=== PATIENT | female | born 1955 | race Caucasian/White ===

== ENCOUNTER → 2020-04-17 07:47 | Outpatient (CLI) | payer BC, SELFPAY ==
--- NOTE | 2020-04-17 08:01 | CT_ITS ---
STUDY: CT CHEST WITHOUT CONTRAST REASON FOR EXAM: Female, 64 years old. ELEVATED TUMOR MARKERS FOR THYROID CANCER. ELEVATED TUMOR MARKERS RADIATION DOSAGE (If Supplied By Facility): CTDIvol = ( 18.41 ) mGy, DLP = ( 792.80 ) mGycm TECHNIQUE: Transaxial imaging was performed without the administration of intravenous contrast material. Individualized dose optimization techniques were used for this CT. COMPARISON: None. FINDINGS: The study is technically limited, being performed without intravenous contrast. The lungs are normal. There is no demonstrated pleural abnormality. The heart size is within normal limits. There is trace pericardial effusion. There appears to be status post thyroidectomy. No mass or adenopathy is identified in the region. Normal hilar regions. Normal unenhanced pulmonary arteries. There are calcified plaques of the thoracic aorta. There are diffuse degenerative changes of the visualized cervicothoracolumbar spine. There is no evidence of osseous metastatic disease. There are numerous low-attenuation subcentimeter foci scattered throughout the liver indeterminate for solid versus cystic process. CT/Chest without Contrast IMPRESSION: 1. Trace pericardial effusion. 2. Status post thyroidectomy. There is no evidence of recurrent mass or adenopathy in the region. 3. Numerous low-attenuation subcentimeter foci scattered throughout the liver indeterminate for solid versus cystic process. Metastatic disease should be considered. 4. If clinically indicated, MRI may be helpful for further evaluation. Electronically Signed: Imer Horn MD at 17:12 EDT , Service support ,
== END ==
PROVIDERS: PCP Family Medicine
DX: C73 Malignant neoplasm of thyroid gland (principal); R97.8 Other abnormal tumor markers
CPT/HCPCS: 71250

== ENCOUNTER → 2020-05-08 10:45 | Outpatient (CLI) | payer BC, SELFPAY ==
--- NOTE | 2020-05-08 11:30 | MRI_ITS ---
HISTORY: Abnormal CT, liver abnormality. History of thyroid CA in [id number] ADDITIONAL HISTORY: Liver lesions on previous chest CT. Right upper quadrant pain for 2 years. COMPARISON: CT chest 04/17/2020 TECHNIQUE: Multiplanar, multisequence MRI of the abdomen without and with IV contrast. FINDINGS: LOWER THORAX: Small amount of pericardial fluid. LIVER: Numerous hepatic lesions are seen in both lobes of the liver measuring up to 1 cm in size. Lesions are T1 hypointense, T2 hyperintense and DWI hyperintense. No definite enhancement. GALLBLADDER: No calculi. BILE DUCTS: No significant biliary dilatation. KIDNEYS/URETERS: Unremarkable. ADRENAL GLANDS: Unremarkable. SPLEEN: Enlarged, 15 cm craniocaudal. PANCREAS: Mild to moderate fatty replacement. GI TRACT: Unremarkable as imaged. LYMPH NODES: No pathologic appearing adenopathy. FREE FLUID: None. SKELETON AND SOFT TISSUES: No acute findings. Degenerative changes. MRI/MRI Abd WITH and W/O Contrast IMPRESSION: Multiple small hepatic lesions compatible with cysts. Mild splenomegaly. at 0005 Reported and signed by: Cassandra Flores MD Electronically Signed: Cassandra Flores MD at 0:05 EDT Tel , Service support ,
[2020-05-09 08:55] LABS: CREATININE FINGERSTICK 0.76 mg/dL (0.55-1.02); EGFR FINGERSTICK > 60 mL/min (>60)
== END ==
PROVIDERS: PCP Family Medicine
DX: R93.89 Abnormal findings on diagnostic imaging of other specified body structures (principal); C73 Malignant neoplasm of thyroid gland
CPT/HCPCS: 74183; A9575; A4216

== ENCOUNTER → 2020-11-01 09:42 | Outpatient (CLI) | payer BC, SELFPAY ==
[2020-11-01 10:32] LABS: Absolute Lymphocyte Count 0.98 X10^3/uL (0.83-4.51); Absolute Neutrophil Count 2.6 X10^3/uL (2.0-7.7); Basophil# 0.03 X10^3/uL; Basophil% 0.8 % (0-1); Eosinophil# 0.08 X10^3/uL; Hemoglobin 13.5 g/dL (12.0-15.0); Lymphocyte # 0.98 X10^3/ul (4.0); Mean Corp Hgb Conc 33.8 g/dL (32-36); Mean Corpuscular Hgb 32.3 pg (27.0-32.0); Mean Corpuscular Volume 95.7 fL (81-99); Mean Platelet Vol. 11.4 fl (6.2-12.0); Monocyte# 0.21 X10^3/uL; Monocyte% 5.4 % (0-10); NRBC Flagged by Analyzer 0 % (0-5); Neutrophil # 2.61 X10^3/uL (2.7-7.7); Neutrophil % 66.5 % (47-70); Platelet Count 125 K/mm3 (150-450); RBC Distribution Width CV 11.4 % (11.6-14.6); RBC Distribution Width SD 39.7 fl (35.1-43.9); Red Blood Count 4.18 M/mm3 (4.2-5.4); White Blood Count 3.9 K/mm3 (4.4-11.0)
--- NOTE | 2020-11-01 10:34 | EKG12_ITS ---
Test Reason : PREOP Blood Pressure : / mmHG Vent. Rate : 063 BPM Atrial Rate : 063 BPM P-R Int : 142 ms QRS Dur : 080 ms QT Int : 412 ms P-R-T Axes : 017 015 028 degrees QTc Int : 421 ms Normal sinus rhythm Normal ECG Confirmed by ADDY BERNAL, NATHALIE ([id number]), editor department GAY ZENDEJAS ([id number]) on 11/05/2020 1:37:21 PM Referred By: [place] Confirmed By:NATHALIE DALY MD
[2020-11-01 10:56] LABS: Anion Gap 3 (5-15); BUN 18 mg/dL (7-18); BUN/Creat Ratio 18.1 RATIO (10-20); Calcium,Total 8.8 mg/dL (8.5-10.1); Chloride 102 mmol/L (98-107); EST Glomerular Filtration Rate 59 mL/min (>60); Est Glom Filt Rate - Afr Amer 72 mL/min (>60); Glucose 268 mg/dL (74-106); Sodium Level 138 mmol/L (136-145)
[2020-11-01 11:05] LABS: Hemoglobin A1c 8.8 % (3.8-5.6)
== END ==
PROVIDERS: PCP Family Medicine; Referring Provider Physician Assistant; Visit Provider Physician Assistant
DX: Z01.818 Encounter for other preprocedural examination (principal); Z01.810 Encounter for preprocedural cardiovascular examination
CPT/HCPCS: 36415; 80048; 83036; 85025; 93005

== ENCOUNTER 2022-11-03 08:29 | Observation (INO) | payer MEDICARE, SELFPAY ==
[2022-11-03] VITALS (10 sets, daily range): BP systolic 142–156; BP diastolic 61–83; PULSE 57–76; RESP 13–18; TEMP 36.3–36.8; O2SAT 95–99; BMI 33.7; BMI 29.8
--- NOTE | 2022-11-03 09:00 | EKG12_ITS ---
Test Reason : CP Blood Pressure : / mmHG Vent. Rate : 064 BPM Atrial Rate : 064 BPM P-R Int : 144 ms QRS Dur : 076 ms QT Int : 424 ms P-R-T Axes : 055 017 049 degrees QTc Int : 437 ms Normal sinus rhythm Normal ECG When compared with ECG of 01-NOV-2020 10:59, No significant change was found Confirmed by NOAM BERNAL, DK ([id number]), magazine editor CORIN DURHAM ([id number]) on 11/05/2022 1:12:35 PM Referred By: Pl Confirmed By:DK SANTACRUZ MD
--- NOTE | 2022-11-03 09:02 | ED.VIS.CHEST ---
HPI History of Present Illness Chief Complaint: Chest Pain Informant: patient Narrative Narrative: Patient presents with episodes of chest pain that started occurring on Thursday. They do tend to get better if she lays down and rests. I cannot get her to specifically state that they are worsened by exertion though. She has had several episodes where her heart rate goes fast. She states that it was fast enough that I should have been in the hospital. But she is not sure of the rate. However, she has chest pain when her heart rate is not going fast also. Her first episode of pain was more at the base of the neck on the left. She states she has had pain over here because of nerve problems from her prior thyroid surgery in 2017 and 18. But later episodes of chest pain have been more on the chest that radiate up toward the left shoulder and even down the arm toward the elbow. She has been slightly short of breath with this at times. She had some mild nausea once or twice no diaphoresis. She received aspirin and nitro in the ambulance and is pain-free now. No GI symptoms. No history of GI issues or cardiac issues other than mitral valve prolapse. Patient is on atorvastatin but was told her cholesterol is normal but this drug just helps keep veins open. She is also on meds for high blood pressure and thyroid disease. She has never had a heart catheterization or stents. She had a stress test decades ago. Family history of some strokes and heart disease but not until later in life. She quit smoking in the 70s. [facility] Medical History HTN (hypertension) Hx of thyroid cancer Home Medications atorvastatin 20 mg tablet 20 mg PO DAILY 11/03/22 [History Last Taken Unknown] insulin NPH isoph U-100 human 100 unit/mL (3 mL) subcutaneous pen (Humulin N NPH U-100 Insulin KwikPen) 20 unit subcut QHS 11/03/22 [History Last Taken Unknown] levothyroxine 137 mcg tablet 137 mcg PO DAILY 11/03/22 [History Last Taken Unknown] losartan 50 mg tablet 50 mg PO DAILY 11/03/22 [History Last Taken Unknown] metoprolol tartrate 50 mg tablet 50 mg PO DAILY 11/03/22 [History Last Taken Unknown] Allergy/AdvReac Type Severity Reaction Status Date / Time sulfite Allergy Anaphylaxis Verified 11/03/22 08:34 Social History Smoking Status: Never smoker ROS ROS ED Constitutional Constitutional ED: Denies chills or fever(s) Eyes Eyes: Denies change in vision ENT ENT ED: Denies rhinorrhea or sore throat Cardiovascular Cardiovascular: Reports as per HPI Respiratory/Chest Respiratory/Chest: Reports dyspnea; Denies cough or sputum Gastrointestinal Gastrointestinal: Reports nausea; Denies vomiting Genitourinary Genitourinary ED: Denies dysuria Musculoskeletal Musculoskeletal: Reports neck pain; Denies arthralgias or back pain Integumentary Denies rash Neurologic Neurologic: Reports other Details: One of the episodes had slight tingling on her left arm but she stated that last for just a couple seconds. ; Denies headache(s), paresthesias or weakness Endocrine Endocrinology: Denies polydipsia or polyuria Hematologic/Lymphatic Hematologic/Lymphatic: Denies lymphadenopathy EXAM Physical Exam Const Vital Signs: 11/03/22 08:30 11/03/22 08:37 11/03/22 09:06 Temperature 98.3 F Temperature Source Temporal Pulse Rate 67 Respiratory Rate 13 Respiratory Effort Normal Non-Labored Blood Pressure 152/83 H Blood Pressure Mean 106 Pulse Ox 98 97 Oxygen Delivery Method Room Air 11/03/22 09:49 11/03/22 11:23 11/03/22 11:23 Temperature 97.3 F L Temperature Source Temporal Pulse Rate 62 62 61 Respiratory Rate 16 16 17 Respiratory Effort Blood Pressure 145/61 H 156/67 H 156/67 H Blood Pressure Mean 89 96 96 Pulse Ox 98 99 99 Oxygen Delivery Method Room Air Room Air Room Air Positive well nourished General Appearance ED: NAD HEENT atraumatic Eyes General Eye ED: Negative for scleral icterus Neck supple Neck Narrative: Well-healed scar. Chest Wall inspection of chest normal Resp normal respiratory effort and clear to auscultation bilaterally Resp Narrative: No pain with deep breath. Cardio regular rate, regular rhythm and no murmurs GI normal to inspection, nondistended, normoactive bowel sounds and soft to palpation Back/Spine no CVA tenderness Extremity General Extremety ED: Negative for edema General Extremity: Negative for edema Neuro Sensorium / Orientation: awake and alert Psych mental status grossly normal Skin no rashes or lesions noted Heart Score History: Highly Suspicious ECG: Normal Age: >/= 65 years Risk Factors: 1 or 2 Risk Factors Troponin: </= Normal Limit Score: 5 MDM MDM MDM Narrative Medical decision making narrative: PatientChest x-ray shows no acute process. Just minimal elevation of the hemoglobin. Creatinine is slightly high at 1.03. This might be due to her glucose elevation causing some mild dehydration. It sounds like she takes insulin just in the evening. She states she takes Humulin only. TSH is normal. Troponins normal. My concern is that this patient does have risk factors for heart disease. She has chest pain and it seems to be getting worse on each episode. This morning she added nausea along with the pain and dyspnea. With slowly worsening pain and risk factors she will be brought in for further evaluation. Lab Data Attestation: I reviewed the patient's lab results. Labs: Laboratory Results - last 24 hr 11/03/22 11/03/22 08:15 08:15 WBC 4.4 RBC 4.90 Hgb 15.1 H Hct 42.3 MCV 86.3 MCH 30.8 MCHC 35.7 RDW Std Deviation 39.7 RDW Coeff of Antonoi 12.6 Plt Count 143 L MPV 11.6 Immature Gran % (Auto) 0.500 Neut % (Auto) 65.4 Lymph % (Auto) 26.8 [place] % (Auto) 4.8 Eos % (Auto) 1.6 Baso % (Auto) 0.9 Absolute Neuts (auto) 2.9 Absolute Lymphs (auto) 1.17 Nucleated RBC % 0 Sodium 137 Potassium 3.2 L Chloride 101 Carbon Dioxide 27.0 Anion Gap 9 BUN 17 Creatinine 1.04 H Estim Creat Clear Calc 44.09 Est GFR (MDRD) Af Amer 68 Est GFR (MDRD) Non-Af 56 L BUN/Creatinine Ratio 16.3 Glucose 303 H Calcium 9.0 Troponin I High Sens 7 TSH 1.13 Radiography Diagnostic Testing: Clinical Impression(s) from Imaging Studies Chest X-Ray 11/03/22 09:07 IMPRESSION: Hyperinflation. The lungs are clear. Electronically Signed: Jeff Ramirez MD at 9:29 EST , Chest x-ray looked at by me and read by radiology shows mild hyperinflation. EKG Initial EKG: Comments: EKG done for chest pain read by me shows a normal sinus rhythm with overall rate of 64. No ectopy. No acute ST elevation or depression. VT interval, QRS duration and QTc are normal. Overall the EKG is similar to a prior from 01 November 2020 Discharge Plan Triage Chief Complaint: Chest Pain ED Provider: Armin Whitfield Dx/Rx/DC Orders Clinical Impression: Chest pain, Acute hyperglycemia, Mild dehydration Prescriptions: No Action losartan 50 mg tablet 50 mg PO DAILY levothyroxine 137 mcg tablet 137 mcg PO DAILY atorvastatin 20 mg tablet 20 mg PO DAILY Label Comments: TAKE 1 TABLET BY MOUTH EVERY DAY AT BEDTIME metoprolol tartrate 50 mg tablet 50 mg PO DAILY Humulin N NPH Insulin KwikPen 100 unit/mL (3 mL) insulin pen 20 unit SUBCUT QHS Primary Care Provider: Kenny Mercado Referrals: Kenny Mercado MD [Primary Care Provider] - Disposition Disposition: Acute Care Hospital [facility]
--- NOTE | 2022-11-03 09:07 | RAD_ITS ---
STUDY: X-RAY CHEST REASON FOR EXAM: Female, 67 years old. Chest pain TECHNIQUE: Single AP portable view of the chest. COMPARISON: Comparison is made with prior study 07/23/2017. FINDINGS: EKG electrodes are seen. Hyperinflation. The lungs are clear. There is no demonstrated pleural abnormality. Normal size heart. Normal mediastinum and melissa. Normal visualized pulmonary arteries. There is atherosclerotic calcification of the aortic arch with tortuosity. There are diffuse degenerative changes of the visualized thoracic spine. Normal visualized ribs, clavicles, and shoulders. There is no demonstrated abnormality of the visualized soft tissue structures of the upper abdomen. RAD/Chest 1 View (Portable) IMPRESSION: Hyperinflation. The lungs are clear. Electronically Signed: Jeff Ramirez MD at 9:29 EST ,
[2022-11-03 09:10] LABS: Absolute Lymphocyte Count 1.17 X10^3/uL (0.83-4.51); Absolute Neutrophil Count 2.9 X10^3/uL (2.0-7.7); Basophil# 0.04 X10^3/uL; Basophil% 0.9 % (0-1); Eosinophil# 0.07 X10^3/uL; Eosinophils% 1.6 % (0-5); Hematocrit 42.3 % (37-47); Hemoglobin 15.1 g/dL (12.0-15.0); Lymphocyte # 1.17 X10^3/ul (0.83-4.51); Lymphocyte % 26.8 % (19-41); Mean Corp Hgb Conc 35.7 g/dL (32-36); Mean Corpuscular Hgb 30.8 pg (27.0-32.0); Mean Corpuscular Volume 86.3 fL (81-99); Mean Platelet Vol. 11.6 fl (6.2-12.0); Monocyte# 0.21 X10^3/uL; Monocyte% 4.8 % (0-10); NRBC Flagged by Analyzer 0 % (0-5); Neutrophil # 2.86 X10^3/uL (2.7-7.7); Neutrophil % 65.4 % (47-70); Platelet Count 143 K/mm3 (150-450); RBC Distribution Width CV 12.6 % (11.6-14.6); RBC Distribution Width SD 39.7 fl (35.1-43.9); White Blood Count 4.4 K/mm3 (4.4-11.0)
[2022-11-03 09:45] LABS: Anion Gap 9 (5-15); BUN 17 mg/dL (7-18); BUN/Creat Ratio 16.3 RATIO (10-20); Chloride 101 mmol/L (98-107); Creatinine, Serum 1.04 mg/dL (0.55-1.02); EST Glomerular Filtration Rate 56 mL/min (>60); Est Glom Filt Rate - Afr Amer 68 mL/min (>60); Estimated Creatinine Clearance 44.09 ml/min; Glucose 303 mg/dL (74-106); Potassium 3.2 mmol/L (3.5-5.1); Sodium Level 137 mmol/L (136-145); Thyroid Stim Hormone (TSH) 1.13 uIU/mL (0.358-3.74); Troponin-I HS (w/2H Reflex) 7 pg/mL (3.0-54.0)
[2022-11-03] MEDS: Potassium Chloride Oral Tablet 20 MEQ PO (10:08)
[2022-11-03 11:07] LABS: Reflex Troponin-HS? (from REC) Y
[2022-11-03] MEDS: 0.9% Normal Saline 1,000 ML 100 ML IV ×2 (11:23→22:36)
[2022-11-03 11:47] LABS: Troponin-I HS 8 pg/mL (3.0-54.0)
--- NOTE | 2022-11-03 12:49 | HP.PCM.HOS_ITS ---
HPI - General General Date of Admission: 11/03/22 HPI Narrative HUGO SANDERS, is a 67 F who presents to the hospital with multiple episodes of chest pain/pressure. She is unable to give a great history in terms of whether or not the pain was worse with activity and improved with rest, she does state that the nitroglycerin she was given did help significantly. She does not have a strong family history of heart disease however her history is complicated with hyperlipidemia as well as diabetes and condition. Her initial troponin was 7 and repeat was 8. She been noticing some episodes of tachycardia but she has not noticed that the tachycardia has caused worsening chest pain. She is states she has had a stress test a few years ago but it was unremarkable. She also acknowledges a significant amount of stress in her life with her fianc? currently undergoing a quadruple vessel bypass a few weeks ago and is currently at a intermediate. [facility] Medical History (Updated 11/03/22 @ 11:[address] Armin Whitfield MD) HTN (hypertension) Hx of thyroid cancer Home Medications atorvastatin 20 mg tablet 20 mg PO DAILY 11/03/22 [History Last Taken Unknown] insulin NPH isoph U-100 human 100 unit/mL (3 mL) subcutaneous pen (Humulin N NPH U-100 Insulin KwikPen) 20 unit subcut QHS 11/03/22 [History Last Taken Unknown] levothyroxine 137 mcg tablet 137 mcg PO DAILY 11/03/22 [History Last Taken Unknown] losartan 50 mg tablet 50 mg PO DAILY 11/03/22 [History Last Taken Unknown] metoprolol tartrate 50 mg tablet 50 mg PO DAILY 11/03/22 [History Last Taken Unknown] Allergy/AdvReac Type Severity Reaction Status Date / Time sulfite Allergy Anaphylaxis Verified 11/03/22 08:34 Family History (Updated 11/03/22 @ 12:[address] Vignesh Gates MD) Other CVA (cerebral vascular accident) Heart disease Surgical History (Updated 11/03/22 @ 12:[address] Vignesh Gates MD) History of thyroidectomy Social History Smoking Status: Never smoker ROS Constitutional Constitutional: Denies chills, fatigue, fever(s) or malaise Eyes Eyes: Denies blurry vision ENT HEENT: Denies headache(s) or nasal discharge Cardiovascular Cardiovascular: Reports chest pain and palpitations; Denies dyspnea on exertion or syncope Respiratory/Chest Respiratory/Chest: Denies cough, shortness of breath at rest or shortness of breath with exertion Gastrointestinal Gastrointestinal: Denies constipation, diarrhea, nausea or vomiting Genitourinary Genitourinary: Denies dysuria Neurologic Neurologic: Denies focal weakness, numbness or tremor(s) Psychiatric Psychiatric: Denies anxiety or depression Vital Signs Vital Signs Vital Signs: 11/03/22 08:30 11/03/22 08:37 11/03/22 09:06 Temperature 98.3 F Temperature Source Temporal Pulse Rate 67 Respiratory Rate 13 Respiratory Effort Normal Non-Labored Blood Pressure 152/83 H Blood Pressure Mean 106 Pulse Ox 98 97 Oxygen Delivery Method Room Air 11/03/22 09:49 11/03/22 11:23 11/03/22 11:23 Temperature 97.3 F L Temperature Source Temporal Pulse Rate 62 62 61 Respiratory Rate 16 16 17 Respiratory Effort Blood Pressure 145/61 H 156/67 H 156/67 H Blood Pressure Mean 89 96 96 Pulse Ox 98 99 99 Oxygen Delivery Method Room Air Room Air Room Air Weight Weight: 196 lb 13.965 oz Body Mass Index (BMI) 33.7 Physical Exam Narrative General: Alert, Oriented x3, Cooperative, No apparent distress HEENT: Atraumatic, PERRLA, EOMI, Normocephalic Oral: Moist Mucosa Neck: Supple, No JVD Lungs: Clear to auscultation, Normal air movement, No rhonchi, No wheeze, No rales Cardiovascular: Regular rate, Regular Rhythm, Normal S1, Normal S2, No murmurs Abdomen: Soft, Non Tender, Non-Distended, No Hepato-splenomegaly Extremities: No edema, Capillary Refill Less than 3 Seconds Skin: No rashes, No breakdown Musculoskeletal: No Tenderness to Palpation of Joints or Extremities Neurological: Cranial nerves II-XII grossly intact, Motor Exam 5/5 strength throughout, Sensory exam intact to light touch and pain Psych/Mental Status: Normal Affect, Appropriate Results Lab / Micro Data Result Diagrams: 11/03/22 08:15 11/03/22 08:15 Labs: Laboratory Results - last 24 hr 11/03/22 08:15: WBC 4.4, RBC 4.90, Hgb 15.1 H, Hct 42.3, MCV 86.3, MCH 30.8, MCHC 35.7, RDW Std Deviation 39.7, RDW Coeff of Antonio 12.6, Plt Count 143 L, MPV 11.6, Immature Gran % (Auto) 0.500, Neut % (Auto) 65.4, Lymph % (Auto) 26.8, [place] % (Auto) 4.8, Eos % (Auto) 1.6, Baso % (Auto) 0.9, Absolute Neuts (auto) 2.9, Absolute Lymphs (auto) 1.17, Nucleated RBC % 0 11/03/22 08:15: Sodium 137, Potassium 3.2 L, Chloride 101, Carbon Dioxide 27.0, Anion Gap 9, BUN 17, Creatinine 1.04 H, Estim Creat Clear Calc 44.09, Est GFR (MDRD) Af Amer 68, Est GFR (MDRD) Non-Af 56 L, BUN/Creatinine Ratio 16.3, Glucose 303 H, Calcium 9.0, Troponin I High Sens 7, TSH 1.13 11/03/22 11:20: Troponin I High Sens 8 Radiology Impression Chest X-Ray 11/03/22 09:07 IMPRESSION: Hyperinflation. The lungs are clear. Electronically Signed: Jeff Ramirez MD at 9:29 EST , Assessment & Plan Assessment/Plan (1) Chest pain: PLAN: Plan 1. Chest pain/HTN/HLD ? Troponin so far unremarkable we will obtain a troponin series ? We will obtain a stress test in the morning ? Continue her home pressure medications ? Continue with her home Lipitor 2. DM2 ? She is insulin-dependent we will continue with her nighttime insulin ? We will place her on Accu-Cheks AC at bedtime ? We will make adjustments as necessary 3. 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 Stable, TSH of 1.13 ? Continue with Synthroid DVT: Ambulation Charges/Coding Visit Charges OBSV E&M: 02722 Initial observation care L2
[2022-11-03] MEDS: Insulin Lispro 100 UNIT/ML INSULN.PEN SC ×2 (17:18→21:52)
[2022-11-03 17:40] LABS: Bedside Glucose 226 mg/dL (74-106)
[2022-11-03 18:21] LABS: Troponin-I HS 8 pg/mL (3.0-54.0)
[2022-11-03] MEDS: Insulin NPH Human 100 UNITS/ML PEN 20 UNITS SC (21:51)
[2022-11-03 22:35] LABS: Bedside Glucose 236 mg/dL (74-106)
[2022-11-03] MEDS: Acetaminophen 325 MG Tablet 650 MG PO (22:36)
[2022-11-04] VITALS (8 sets, daily range): BP systolic 113–152; BP diastolic 67–84; PULSE 55–86; RESP 16–18; TEMP 36.4–36.8; O2SAT 96–99
[2022-11-04 05:18] LABS: Absolute Lymphocyte Count 1.33 X10^3/uL (0.83-4.51); Absolute Neutrophil Count 2.6 X10^3/uL (2.0-7.7); Basophil# 0.04 X10^3/uL; Basophil% 0.9 % (0-1); Eosinophil# 0.06 X10^3/uL; Eosinophils% 1.4 % (0-5); Hematocrit 36.3 % (37-47); Hemoglobin 12.2 g/dL (12.0-15.0); Lymphocyte # 1.33 X10^3/ul (0.83-4.51); Lymphocyte % 31.1 % (19-41); Mean Corp Hgb Conc 33.6 g/dL (32-36); Mean Corpuscular Hgb 30.4 pg (27.0-32.0); Mean Corpuscular Volume 90.5 fL (81-99); Mean Platelet Vol. 11.8 fl (6.2-12.0); Monocyte# 0.21 X10^3/uL; Monocyte% 4.9 % (0-10); NRBC Flagged by Analyzer 0 % (0-5); Neutrophil # 2.63 X10^3/uL (2.7-7.7); Neutrophil % 61.5 % (47-70); Platelet Count 114 K/mm3 (150-450); RBC Distribution Width CV 13.1 % (11.6-14.6); RBC Distribution Width SD 42.7 fl (35.1-43.9); Red Blood Count 4.01 M/mm3 (4.2-5.4); White Blood Count 4.3 K/mm3 (4.4-11.0)
[2022-11-04 05:37] LABS: Anion Gap 8 (5-15); BUN 17 mg/dL (7-18); BUN/Creat Ratio 18.7 RATIO (10-20); Calcium,Total 8.1 mg/dL (8.5-10.1); Chloride 104 mmol/L (98-107); Creatinine, Serum 0.91 mg/dL (0.55-1.02); EST Glomerular Filtration Rate 65 mL/min (>60); Est Glom Filt Rate - Afr Amer 79 mL/min (>60); Estimated Creatinine Clearance 50.38 ml/min; Glucose 126 mg/dL (74-106); Potassium 3.3 mmol/L (3.5-5.1); Sodium Level 140 mmol/L (136-145)
--- NOTE | 2022-11-04 05:55 | EKG12_ITS ---
Test Reason : PRE OP Blood Pressure : / mmHG Vent. Rate : 063 BPM Atrial Rate : 063 BPM P-R Int : 144 ms QRS Dur : 078 ms QT Int : 438 ms P-R-T Axes : 053 034 044 degrees QTc Int : 448 ms Normal sinus rhythm Normal ECG Confirmed by ADDY BERNAL, NATHALIE ([id number]), editor map CORIN DURHAM ([id number]) on 11/05/2022 9:07:14 AM Referred By: Confirmed By:NATHAILE DALY MD
[2022-11-04] MEDS: Losartan Potassium 50 MG Tablet PO (06:48)
[2022-11-04] MEDS: Levothyroxine 137 MCG Tablet PO (06:48)
[2022-11-04] MEDS: Potassium Chloride Oral Tablet 20 MEQ 40 MEQ PO (06:51)
[2022-11-04 07:20] LABS: Bedside Glucose 157 mg/dL (74-106)
[2022-11-04] MEDS: 0.9% Saline Lock 10 ML Syringe IV (08:42)
--- NOTE | 2022-11-04 11:33 | STRESSREP ---
Stress Test Report Date: 11-04-2022 Procedure: Pharmacologic stress nuclear imaging study Indications: Chest pain Consent: Per the patient Procedure: The patient underwent pharmacologic (Regadenoson 0.4mg ) evaluation with a peak heart rate of 110 beats per minute (72%predicted maximal heart rate) and a resting blood pressure of 126/75 mmHg and a peak blood pressure of 181/75 mmHg. The baseline ECG demonstrated normal sinus rhythm. The peak pharmacologic ECG demonstrated no obvious ECG changes. There were no cardiac dysrhythmias pretest, during pharmacologic infusion, or recovery. There was no complaint of chest discomfort during pharmacologic infusion or recovery. The examination was discontinued secondary to completion of protocol. Impression: 1. Pharmacologic (Regadenoson) evaluation 2. Peak pharmacologic ECG with no obvious ECG changes. 3. There were no cardiac dysrhythmias pretest, during pharmacologic infusion, or recovery. 4. Nuclear images pending Myocardial perfusion imaging study: Technique: The patient was injected with 11.0 millicuries of technetium 99m Cardiolite and subsequently rest SPECT Cardiolite nuclear imaging was obtained in the horizontal long, vertical long, and short axis views. The patient underwent pharmacologic (Regadenoson) evaluation with a peak heart rate of 110 beats per minute (72% percent predicted maximal heart rate) and a resting blood pressure of 126/75 mmHg and a peak blood pressure of 181/75 mmHg. The patient was injected with 33.4 millicuries of technetium 99m Cardiolite and subsequently stress SPECT Cardiolite nuclear imaging was obtained in the horizontal long, vertical long, and short axis views. A gated Cardiolite study at peak stress was obtained. Interpretation: Rest and stress SPECT Cardiolite nuclear imaging status post realignment, normalization, and attenuation correction demonstrate at rest the appearance of a small area of subtle diminished tracer uptake near the distal anteroseptal segments which status post stress appears to improve/normalize. There is end systolic thickening and brightening. The gated Cardiolite study demonstrates myocardial thickening and inward wall motion. The reported LVEF is 80%. Impression: 1. Rest and stress SPECT current nuclear imaging demonstrate myocardial perfusion changes compatible with shifting soft tissue attenuation/artifact with no myocardial perfusion changes considered diagnostic for associated stress-induced myocardial ischemia. 2. The gated Cardiolite study reports an LVEF of 80%. This note was generated with [employer] software. It may contain incorrect words, spelling, and punctuation that were not noted in checking the note before signing.
[2022-11-04] MEDS: Insulin Lispro 100 UNIT/ML INSULN.PEN SC (11:45)
--- NOTE | 2022-11-04 11:45 | CASEMGMT ---
This RN CM to room with HATHAWAY form, explanation done-pt voices understanding, and signs HATHAWAY form. Original to chart and copy to pt. Pt voices no further questions/concerns/needs for discharge. SStaten RN CM
--- NOTE | 2022-11-04 11:58 | DCINST_ITS ---
Discharge Instructions Diet Discharge Diet: Low fat / Low cholesterol Activity Discharge Activity: Return to Normal Activity Dressing / Incision Call your doctor if you observe: Fever of 101 or Higher, Shortness of breath, Dizziness, Fainting spells, Swelling in the ankles, Chest pain and Increased palpitations (irregular heartbeat) Follow Up Care Test Results: Test results from this visit will be discussed in further detail at your follow- up appointment, if applicable. Discharge Plan Admission Admit Date/Time: 11/03/22 11:11 Attending Provider: Vignesh Gates Primary Care Provider: Kenny Mercado Discharge Orders/Prescriptions Prescriptions: Continued losartan 50 mg tablet 50 mg PO DAILY levothyroxine 137 mcg tablet 137 mcg PO DAILY Rx Instructions: 1/2 tab on sundays atorvastatin 20 mg tablet 20 mg PO DAILY Label Comments: TAKE 1 TABLET BY MOUTH EVERY DAY AT BEDTIME metoprolol tartrate 50 mg tablet 50 mg PO BID Humulin N NPH Insulin KwikPen 100 unit/mL (3 mL) insulin pen 20 unit SUBCUT DINNER Referrals / Follow Up: Kenny Mercado MD [Primary Care Provider] - Within 1 Week Disposition Disposition (needs filled in before D/C Order can be placed): Home, Self Care
[2022-11-04 12:11] LABS: Bedside Glucose 300 mg/dL (74-106)
--- NOTE | 2022-11-04 12:14 | DS.PCM_ITS ---
Providers Date of Admission: 11/03/22 Primary Care Physician: Dr. Kenny Mercado MD Reason For Visit: chest pain Diagnosis Discharge Diagnosis (1) Chest pain: Status: Acute Code(s): R07.9 - Chest pain, unspecified Plan 1. Chest pain/HTN/HLD ? Troponin so far unremarkable we will obtain a troponin series ? We will obtain a stress test in the morning ? Continue her home pressure medications ? Continue with her home Lipitor 2. DM2 ? She is insulin-dependent we will continue with her nighttime insulin ? We will place her on Accu-Cheks AC at bedtime ? We will make adjustments as necessary 3. 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 Stable, TSH of 1.13 ? Continue with Synthroid DVT: Ambulation Medications at Discharge Home Medications atorvastatin 20 mg tablet 20 mg PO DAILY high cholesterol 11/03/22 insulin NPH isoph U-100 human 100 unit/mL (3 mL) subcutaneous pen (Humulin N NPH U-100 Insulin KwikPen) 20 unit subcut DINNER diabetes 11/03/22 levothyroxine 137 mcg tablet 137 mcg PO DAILY hypothyroidism 11/03/22 losartan 50 mg tablet 50 mg PO DAILY blood pressure 11/03/22 metoprolol tartrate 50 mg tablet 50 mg PO BID blood pressure 11/03/22 Hospital Course Operations None Procedures Stress test Summary of Care Provided Minutes Spent on Discharge: 38 Hospital Course: Per HPI: HUGO SANDERS, is a 67 F who presents to the hospital with multiple episodes of chest pain/pressure.? She is unable to give a great history in terms of whether or not the pain was worse with activity and improved with rest, she does state that the nitroglycerin she was given did help significantly.? She does not have a strong family history of heart disease however her history is complicated with hyperlipidemia as well as diabetes and condition.? Her initial troponin was 7 and repeat was 8.? She been noticing some episodes of tachycardia but she has not noticed that the tachycardia has caused worsening chest pain.? She is states she has had a stress test a few years ago but it was unremarkable.? She also acknowledges a significant amount of stress in her life with her fianc? currently undergoing a quadruple vessel bypass a few weeks ago and is currently at a intermediate. Hospital Course: 1. Chest pain/HTN/HLD?67-year-old female presented to the hospital with multiple episodes of chest pressure as well as neck and left arm pain. Troponins were unremarkable and EKG was normal however she does have a day mild cardiac family history and given the fact that she is a diabetic and could be having an atypical presentation she was brought in to the hospital. She had a stress test today which was negative. She has been acknowledging some point tenderness over her chest which is reproducible on palpation consistent with musculoskeletal source. Given the fact that her vital signs are stable she is not hypoxic and she feels much better today, I discussed with her the plan for discharge today and she expressed understanding of the risk benefits of going home and would like to go home today. I do recommend she follow-up with her PCP in 3 to 5 days. 2. Hypothyroidism secondary to thyroidectomy for cancer, DM2 are all chronic medical conditions which complicate her care. Her home medications were continued where appropriate Physical Exam Narrative General: Alert, Oriented x3, Cooperative, No apparent distress HEENT: Atraumatic, PERRLA, EOMI, Normocephalic Oral: Moist Mucosa Neck: Supple, No JVD Lungs: Clear to auscultation, Normal air movement, No rhonchi, No wheeze, No rales Cardiovascular: Regular rate, Regular Rhythm, Normal S1, Normal S2, No murmurs Abdomen: Soft, Non Tender, Non-Distended, No Hepato-splenomegaly Extremities: No edema, Capillary Refill Less than 3 Seconds Skin: No rashes, No breakdown Musculoskeletal: No Tenderness to Palpation of Joints or Extremities Neurological: Cranial nerves II-XII grossly intact, Motor Exam 5/5 strength throughout, Sensory exam intact to light touch and pain Psych/Mental Status: Normal Affect, Appropriate Weight / BMI Weight Weight: 173 lb 15.115 oz Body Mass Index (BMI) 29.8 ABG / Lab / Microbiology Data Result Diagrams: 11/04/22 04:31 11/04/22 04:31 Laboratory: Laboratory Results - last 24 hr 11/03/22 16:52: Troponin I High Sens 8 11/03/22 17:14: POC Glucose 226 H 11/03/22 21:48: POC Glucose 236 H 11/04/22 04:31: WBC 4.3 L, RBC 4.01 L, Hgb 12.2, Hct 36.3 L, MCV 90.5, MCH 30.4, MCHC 33.6 D, RDW Std Deviation 42.7, RDW Coeff of Antonio 13.1, Plt Count 114 L, MPV 11.8, Immature Gran % (Auto) 0.200, Neut % (Auto) 61.5, Lymph % (Auto) 31.1, [place] % (Auto) 4.9, Eos % (Auto) 1.4, Baso % (Auto) 0.9, Absolute Neuts (auto) 2. 6, Absolute Lymphs (auto) 1.33, Nucleated RBC % 0 11/04/22 04:31: Sodium 140, Potassium 3.3 L, Chloride 104, Carbon Dioxide 28.0, Anion Gap 8, BUN 17, Creatinine 0.91, Estim Creat Clear Calc 50.38, Est GFR (MDRD) Af Amer 79, Est GFR (MDRD) Non-Af 65, BUN/Creatinine Ratio 18.7, Glucose 126 H, Calcium 8.1 L 11/04/22 06:46: POC Glucose 157 H 11/04/22 11:43: POC Glucose 300 H D/C Instructions Discharge Diet: Low fat / Low cholesterol Call your doctor if you observe: Fever of 101 or Higher, Shortness of breath, Dizziness, Fainting spells, Swelling in the ankles, Chest pain and Increased palpitations (irregular heartbeat) Meaningful Use Info Meaningful Use Diagnoses (Choose all that apply): None applicable Discharge Plan Admission Admit Date/Time: 11/03/22 11:11 Attending Provider: Vignesh Gates Primary Care Provider: Kenny Mercado Discharge Orders/Prescriptions Prescriptions: Continued losartan 50 mg tablet 50 mg PO DAILY levothyroxine 137 mcg tablet 137 mcg PO DAILY Rx Instructions: 1/2 tab on sundays atorvastatin 20 mg tablet 20 mg PO DAILY Label Comments: TAKE 1 TABLET BY MOUTH EVERY DAY AT BEDTIME metoprolol tartrate 50 mg tablet 50 mg PO BID Humulin N NPH Insulin KwikPen 100 unit/mL (3 mL) insulin pen 20 unit SUBCUT DINNER Referrals / Follow Up: Kenny Mercado MD [Primary Care Provider] - Within 1 Week Disposition Disposition (needs filled in before D/C Order can be placed): Home, Self Care Charges/Coding Visit Charges OBSV E&M: 53826 Observation care discharge
--- NOTE | 2022-11-04 12:17 | PHA.DC.MR ---
Pharmacy Service has performed discharge medication reconciliation for this patient. The patient's discharge medication list was reviewed for discrepancies and discrepancies were resolved. Home Medications atorvastatin 20 mg tablet 20 mg PO DAILY high cholesterol 11/03/22 insulin NPH isoph U-100 human 100 unit/mL (3 mL) subcutaneous pen (Humulin N NPH U-100 Insulin KwikPen) 20 unit subcut DINNER diabetes 11/03/22 levothyroxine 137 mcg tablet 137 mcg PO DAILY hypothyroidism 11/03/22 losartan 50 mg tablet 50 mg PO DAILY blood pressure 11/03/22 metoprolol tartrate 50 mg tablet 50 mg PO BID blood pressure 11/03/22
[2022-11-04] MEDS: Metoprolol Tartrate 50 MG Tablet PO (13:23)
[2022-11-04] MEDS: FLU VACC QS2022-23(6MOS UP)/PF 60 MCG/0.5 ML SYRINGE IM (13:31)
== END 2022-11-04 16:40 | disposition home or self-care (01) ==
LOC: ED 11:31 → PCU 11:34
PROVIDERS: Admitting Provider Family Medicine; Emergency Provider Emergency Medicine; PCP Family Medicine; Visit Provider Family Medicine
DX: R07.89 Other chest pain (principal); E11.65 Type 2 diabetes mellitus with hyperglycemia; Z79.4 Long term (current) use of insulin; R06.02 Shortness of breath; M54.2 Cervicalgia; I10 Essential (primary) hypertension; M79.602 Pain in left arm; E89.0 Postprocedural hypothyroidism; E86.0 Dehydration; E78.5 Hyperlipidemia, unspecified; Z87.891 Personal history of nicotine dependence; Z79.899 Other long term (current) drug therapy; Z79.890 Hormone replacement therapy; Z23 Encounter for immunization
CPT/HCPCS: 36415; 71045; 78452; 80048; 82962; 84443; 84484; 85025; 93005; 93017; 96360; 96361; 97802; 99218; 99285; A9500; G0008; J7030; 90686; A4216; G0378; J2785

== ENCOUNTER 2023-12-30 15:52 | Observation (INO) | payer MEDICARE, SELFPAY ==
[2023-12-30] VITALS (9 sets, daily range): BP systolic 148–156; BP diastolic 70–85; PULSE 85–130; RESP 14–18; TEMP 36.6; O2SAT 92–98; BMI 37.6; BMI 35.0
--- NOTE | 2023-12-30 16:14 | EX.ED.DYSGE1 ---
HPI History of Present Illness Chief Complaint: Palpitations Informant: patient Narrative Narrative: Sent over from outpatient surgery center for atrial fibrillation. Elective right rotator cuff surgery by Dr. Turner today. Surgery was completed. Status post 10 mg IV Lopressor and IV Cardizem. Patient feels mild irregular heart rate. Denies history of dysrhythmia. Hypertension diabetes history. Denies stroke history. Denies heart failure. She is on metoprolol tartrate 50 mg twice daily she took her medicine this morning at 530. Denies chest pains denies cough. Stress test in 2021 due to palpitations and elevated blood glucose. No history of heart cath. Prior similar symptoms: No PFSH PFSH Medical History HTN (hypertension) Hx of thyroid cancer Home Medications atorvastatin 20 mg tablet 20 mg PO QHS high cholesterol 11/03/22 [History Last Taken Unknown] insulin NPH isoph U-100 human 100 unit/mL (3 mL) subcutaneous pen (Humulin N NPH U-100 Insulin KwikPen) 20 unit subcut DINNER diabetes 11/03/22 [History Last Taken 12/29/23] levothyroxine 137 mcg tablet 68.5 mcg PO SOLIS THYROID 11/03/22 [History Last Taken 12/27/23] losartan 50 mg tablet 50 mg PO DAILY blood pressure 11/03/22 [History Last Taken 12/30/23] metoprolol tartrate 50 mg tablet 50 mg PO BID blood pressure 11/03/22 [History Last Taken 12/30/23] cetirizine 10 mg capsule (All Day Allergy (cetirizine)) 10 mg PO DAILY PRN allergies 12/30/23 [History Last Taken 12/26/23] glucosamine-chondroitin 500 mg-400 mg tablet 1 tab PO DAILY supplement 12/30/23 [History Last Taken 12/16/23] glyburide 5 mg tablet 5 mg PO DAILY 12/30/23 [History Last Taken 12/29/23] hydrochlorothiazide 25 mg tablet 25 mg PO DAILY BLOOD PRESSURE 12/30/23 [History Last Taken 12/29/23] levothyroxine 137 mcg capsule 137 mcg PO MOTUWETHFRSA THYROID 12/30/23 [History Last Taken 12/30/23] multivitamin (Daily Multi-Vitamin tablet) 1 tab PO DAILY supplement 12/30/23 [History Last Taken 12/16/23] oxycodone 5 mg tablet 5 - 10 mg PO Q6H PRN rotator cuff surgery pain 12/30/23 [History Last Taken Unknown] Allergy/AdvReac Type Severity Reaction Status Date / Time sulfite Allergy Anaphylaxis Verified 11/03/22 08:34 Family History (Updated 11/03/22 @ 12:[address] Vignesh Gates MD) Other CVA (cerebral vascular accident) Heart disease Surgical History (Updated 12/30/23 @ 23:[address] Benjie Mccollum DO) History of thyroidectomy Social History Smoking Status: Never smoker ROS ROS ED Constitutional Constitutional ED: Denies chills, fever(s) or sweats Eyes Eyes: Denies change in vision ENT ENT ED: Denies dysphagia or sore throat Cardiovascular Cardiovascular: Reports palpitations; Denies chest pain, leg edema or racing heartbeat Respiratory/Chest Respiratory/Chest: Denies cough, dyspnea or dyspnea on exertion Gastrointestinal Gastrointestinal: Denies abdominal pain, diarrhea, nausea or vomiting Genitourinary Genitourinary ED: Denies dysuria, hematuria or urinary frequency Musculoskeletal Musculoskeletal: Denies back pain, extremity pain or neck pain Integumentary Denies rash or wounds Neurologic Neurologic: Denies headache(s), paresthesias or weakness EXAM Physical Exam Const Vital Signs: 12/30/23 15:53 12/30/23 17:40 12/30/23 17:49 Temperature 97.9 F Temperature Source Oral Pulse Rate 109 H 130 H 125 H Respiratory Rate 16 16 Blood Pressure 152/74 H 148/70 H Blood Pressure Mean 100 96 Pulse Ox 93 93 Oxygen Delivery Method Room Air Room Air 12/30/23 18:18 12/30/23 19:00 Temperature Temperature Source Pulse Rate 90 93 Respiratory Rate 14 Blood Pressure Blood Pressure Mean Pulse Ox 95 Oxygen Delivery Method Positive well nourished and well developed General Appearance ED: well developed and NAD HEENT Reports moist mucous membranes normocephalic and atraumatic Eyes PERRL, EOMs intact bilaterally and conjunctivae normal General Eye ED: Yes normal appearance of both eyes Neck no lymphadenopathy and supple General: Negative for tenderness Chest Wall Chest: Negative for tenderness Resp normal respiratory effort and normal air movement Effort and Inspection: symmetric chest movement; Negative for respiratory distress Cardio regular rhythm and no murmurs Rhythm: abnormal rhythm Peripheral Pulses: pulses 2+ throughout GI normal to inspection, nondistended, normoactive bowel sounds and non-tender Palpation: Negative for guarding or rebound tenderness present Back/Spine no CVA tenderness and no thoracic nor lumbar tenderness Extremity normal to inspection Extremity Narrative: Right upper extremity shoulder sling, dressing to the right shoulder. General Extremety ED: Negative for edema or tenderness General Extremity: Negative for edema Neuro oriented x3 and no sensory deficits noted Sensorium / Orientation: awake and alert Skin no rashes or lesions noted and no wounds MDM MDM MDM Narrative Medical decision making narrative: Interventions / MDM: Differential diagnosis: Atrial fibrillation Diagnosis considered but do not suspect: No clinical dyspnea for concerns for PE My EKG interpretation: A-fib 107, no ST or T wave changes. Imaging independently reviewed and interpreted by myself: N/A External documents reviewed: N/A Test considered but not ordered:N/A ED course: Presents A-fib heart rate 107. Blood pressure stable. Labs ordered including thyroid magnesium. She is due for her evening dose of metoprolol 50 mg this was ordered. 1615: I did speak with cardiology Dr. Solis, new A-fib [id number] score is a 4. Rate is currently controlled. Discussed the rate controlled symptomatically stable can follow-up as an outpatient, will discuss with her surgeon to jose Delc[facility]. Discussed with her surgeon Dr. Turner cleared for Farhana. Labs returned stable slight hypokalemia 3.2 oral replacement was given. Farhana ordered. Preparation and possible discharge reevaluation room heart rate going to 120s to 130s. She was ambulated heart rate 140s with lightheaded symptoms. Ordered for IV Cardizem 15 mg. Heart rate much more improved. Patient now requiring additional IV doses of rate controlled medications, therefore will likely need more medications to help with stabilization. I discussed with hospitalist Dr. Curry for admission to PCU. Re-evaluation: stable Disposition discussed with patient/family/significant other: Patient Case discussed with consulting clinician: Cardiology, hospitalist This note was generated with [employer] dictation software. It may contain incorrect words, spelling, and punctuation that were not noted in checking the note before signing. Lab Data Attestation: I reviewed the patient's lab results. Labs: Laboratory Results - last 24 hr 12/30/23 16:14 WBC 4.6 RBC 3.90 L Hgb 11.7 L Hct 35.8 L MCV 91.8 MCH 30.0 MCHC 32.7 RDW Std Deviation 40.4 RDW Coeff of Antonio 12.1 Plt Count 74 L MPV 11.7 Immature Gran % (Auto) 0.700 Neut % (Auto) 91.8 H Lymph % (Auto) 6.6 L [place] % (Auto) 0.7 Eos % (Auto) 0.0 Baso % (Auto) 0.2 Absolute Neuts (auto) 4.2 Absolute Lymphs (auto) 0.30 L Nucleated RBC % 0 Differential Comment SCANNED Sodium 134 L Potassium 3.2 L Chloride 108 H Carbon Dioxide 20.0 L Anion Gap 6 BUN 23 H Creatinine 0.86 Estim Creat Clear Calc 69.74 Est GFR (MDRD) Af Amer 84 Est GFR (MDRD) Non-Af 70 BUN/Creatinine Ratio 26.8 H Glucose 219 H Calcium 7.3 L Magnesium 2.0 TSH 1.54 Discharge Plan Dx/Rx/DC Orders Clinical Impression: Status post rotator cuff surgery, Atrial fibrillation with RVR, Acute hypokalemia Disposition Disposition: [facility] Discharge Date/Time: 12/30/23 22:31
[2023-12-30 16:32] LABS: Absolute Neutrophil Count 4.2 X10^3/uL (2.0-7.7); Basophil# 0.01 X10^3/uL; Basophil% 0.2 % (0-1); Hematocrit 35.8 % (37-47); Hemoglobin 11.7 g/dL (12.0-15.0); Lymphocyte % 6.6 % (19-41); Mean Corp Hgb Conc 32.7 g/dL (32-36); Mean Corpuscular Volume 91.8 fL (81-99); Mean Platelet Vol. 11.7 fl (6.2-12.0); Monocyte# 0.03 X10^3/uL; Monocyte% 0.7 % (0-10); NRBC Flagged by Analyzer 0 % (0-5); Neutrophil % 91.8 % (47-70); POSITIVE COUNT YES; POSITIVE DIFFERENTIAL YES; Platelet Count 74 K/mm3 (150-450); RBC Distribution Width CV 12.1 % (11.6-14.6); RBC Distribution Width SD 40.4 fl (35.1-43.9); White Blood Count 4.6 K/mm3 (4.4-11.0)
[2023-12-30 16:36] LABS: Differential Indicated SCAN CRITERIA MET
[2023-12-30] MEDS: Metoprolol Tartrate 25 MG Tablet 50 MG PO (16:38)
[2023-12-30 16:44] LABS: Differential Comment SCANNED
[2023-12-30 16:56] LABS: Anion Gap 6 (5-15); BUN 23 mg/dL (7-18); BUN/Creat Ratio 26.8 RATIO (10-20); Calcium,Total 7.3 mg/dL (8.5-10.1); Chloride 108 mmol/L (98-107); Creatinine, Serum 0.86 mg/dL (0.55-1.02); EST Glomerular Filtration Rate 70 mL/min (>60); Est Glom Filt Rate - Afr Amer 84 mL/min (>60); Estimated Creatinine Clearance 69.74 ml/min; Glucose 219 mg/dL (74-106); Potassium 3.2 mmol/L (3.5-5.1); Sodium Level 134 mmol/L (136-145); Thyroid Stim Hormone (TSH) 1.54 uIU/mL (0.358-3.74)
--- OUTSIDE RECORDS SUMMARY | 2023-12-30 17:02 | XMS RPT_ITS | CCD ---
Author Name Unknown Address [address] [place] [address] Organization [facility] Care Team Providers Care Burrer Operator Name Role Phone Osmar Walker Unavailable Unavailable Osmar Walker Unavailable Unavailable No Doctor Assigned, Nodr Unavailable Unavail able Osmar Walker Unavailable Unavailable Osmar Walker Unavailable Unavailable No Doctor Assigned, Nodr Unavailable Unavail able Keith Roy Unavailable Unavailable Kirk Mercado MD Primary Care Provider Osmar Walker MD Unavailable Chuck Suarez MD Unavailable KIRK MERCADO Primary Care Unavailable KIRK MERCADO Referring Unavailable ARMOND MOSQUERA Attending Unavailable KIRK MERCADO Primary Care Unavailable KIRK MERCADO Referring Unavailable ARMOND MOSQUERA Attending Unavailable KIRK MERCADO Referring Unavailable ARMOND MOSQUERA Attending Unavailable KIRK MERCADO Primary Care Unavailable Kirk Mercado MD Primary Care Provider Osmar Walker MD Unavailable Chuck Suarez MD Unavailable Unavailable Kirk Mercado MD Unavailable Dr. Jaycob Spencer Unavailable [phone] [facility], . Unavailable Dr. Bryn Solano MD Unavailable [facility] Unavailable [phone] [facility], . Ml office Unavailable [facility] Unavailable Dr. Chuck Suarez MD Unavailable Amie BOOTH, Yarelis Unavailable Unavailable Sasha MUSIC SOUND LIGHT TECHNICIAN, Brenda Unavailable Faulkner PA-C, Nora J Unavailable Peter MUSIC SOUND LIGHT TECHNICIAN, Anna E Unavailable Unavailable Cameron HARDIN, Marjorie Unavailable Unavailable Hudson MUSIC SOUND LIGHT TECHNICIAN, Margo Unavailable Unavailable Joseph BERNAL, Morteza Fernandez Unavailable Pelon LIVE-C, Luke E Unavailable Pelon RN, Talita Moody Unavailable Unavail able Umberto MUSIC SOUND LIGHT TECHNICIAN, Milady Unavailable Unavailable Nely BOOTH, Nadja Fernandez Unavailable Unavaila ble Mutersbaugh MUSIC SOUND LIGHT TECHNICIAN, Shraddha K Unavailable Unavai labanu Washington PA-C, Maria M J Unavailable Christine PIGMENT SUPPLIER, Esther Unavailable Unavailable Valentina MUSIC SOUND LIGHT TECHNICIAN, Lore M Unavailable Unavailab anu Bailey LPN, Joanne Aguilar Unavailable Unavailab anu Sanchez MD, Imtiaz Fernandez Unavailable Jennifer Cole Unavailable Unavailable Lacey MUSIC SOUND LIGHT TECHNICIAN, Mary Unavailable Unavailabl e Unavailable Unavailable ED MOSQUERA MD Primary Care Unavailable ED MOSQUERA MD Attending Unavailable ED MOSQUERA MD Admitting Unavailable BROWN, KIRK Consulting Unavailable PROVIDER, UNKNOWN Consulting Unavailable PROVIDER, UNKNOWN Consulting Unavailable PROVIDER, UNKNOWN Consulting Unavailable SUMMER MITTAL PAC Primary Care Unavailable SUMMER MITTAL PAC Attending Unavailable SUMMER MITTAL PAC Admitting Unavailable BROWN, KIRK Consulting Unavailable PROVIDER, UNKNOWN Consulting Unavailable PROVIDER, UNKNOWN Consulting Unavailable PROVIDER, UNKNOWN Consulting Unavailable PELON, LUKE E Primary Care Unavailable PELON, LUKE E Attending Unavailable BROWN, KIRK Consulting Unavailable PELON, LUKE E Admitting Unavailable PROVIDER, UNKNOWN Consulting Unavailable PROVIDER, UNKNOWN Consulting Unavailable PROVIDER, UNKNOWN Consulting Unavailable BROWN, KIRK Consulting Unavailable BROWN, KIRK Attending Unavailable BROWN, KIRK Primary Care Unavailable BROWN, KIRK Admitting Unavailable PROVIDER, UNKNOWN Consulting Unavailable PROVIDER, UNKNOWN Consulting Unavailable PROVIDER, UNKNOWN Consulting Unavailable PELON, LUKE E Primary Care Unavailable PELON, LUKE E Admitting Unavailable BROWN, KIRK Consulting Unavailable PELON, LUKE E Attending Unavailable PROVIDER, UNKNOWN Consulting Unavailable PROVIDER, UNKNOWN Consulting Unavailable PROVIDER, UNKNOWN Consulting Unavailable STAS CHRISTIAN MD Primary Care Unavailable STAS CHRISTIAN MD Attending Unavailable BROWN, KIRK Consulting Unavailable STAS CHRISTIAN MD Admitting Unavailable PROVIDER, UNKNOWN Consulting Unavailable PROVIDER, UNKNOWN Consulting Unavailable PROVIDER, UNKNOWN Consulting Unavailable KIRK MERCADO Primary Care Unavailable KIRK MERCADO Consulting Unavailable KIRK MERCADO Attending Unavailable KIRK MERCADO Admitting Unavailable PROVIDER, UNKNOWN Consulting Unavailable PROVIDER, UNKNOWN Consulting Unavailable PROVIDER, UNKNOWN Consulting Unavailable SUMMER MITTAL Primary Care Unavailable SUMMER MITTAL Attending Unavailable KIRK MERCADO Consulting Unavailable SUMMER MITTAL PAC Admitting Unavailable PROVIDER, UNKNOWN Consulting Unavailable PROVIDER, UNKNOWN Consulting Unavailable PROVIDER, UNKNOWN Consulting Unavailable Allergies Allergy Classification Reported Allergen(s) Allergy Type Date of Onset Reaction(s) Facility (3 sources) Sulfites; Translations: [SULFITES] Propensity to adverse reactions to drug 8 Swelling [facility] (2 sources) Sulfonamides (Antibiotic) Propensity to adverse reactions to drug 7 Shortness of Breath [facility] (6 sources) Lisinopril Drug Allergy [employer]; [employer] (6 sources) Penicillin V Drug Allergy [employer]; [employer] (1 source) [employer]; [employer] (1 source) [employer]; [employer] (1 source) [employer]; [employer] (1 source) [employer]; [employer] (1 source) [employer]; [employer] (1 source) [employer]; [employer] Medications Current Medications Medication Drug Class(es) Dates Sig (Normalized) Sig (Original) acetaminophen 500 mg oral tablet (2 sources) take 1 tablet by mouth twice daily acetaminophen (TYLENOL) 500 MG tablet Take 1 tablet by mouth 2 times daily. 0 Active ascorbic acid 1000 mg oral tablet (2 sources) Vitamin C take 1 tablet by mouth once daily Ascorbic Acid (Vitamin C) 1000 MG tablet Take 1 tablet by mouth daily. 0 Active atorvastatin 20 mg oral tablet (6 sources) HMG-CoA Reductase Inhibitor Start: 10-20-2023 Centrum Silver Women (6 sources) cholecalciferol 0.025 mg oral capsule (14 sources) Vitamin D Completed/Discontinued Medications Medication Drug Class(es) Dates Sig (Normalized) Sig (Original) acetaminophen 325 mg / HYDROcodone bitartrate 5 mg oral tablet (18 sources) Opioid Agonist Start: 02-05-2016 End: 02-25-2017 Problems Active Problems Problem Classification Problem Date Documented Da te Episodic/Chronic Abdominal pain (12 sources) Abdominal pain, right upper quadrant 03-19-2022 Episodic Administrative/social admission (20 sources) Repeated prescription; Translations: [Encounter for issue of repeat prescription] 03-19-2022 Episodic Anxiety disorders (20 sources) Anxiety disorder; Translations: [Anxiety disorder, unspecified] 11-16-2023 Chronic Cancer of thyroid (20 sources) Malignant tumor of thyroid gland; Translations: [Malignant neoplasm of thyroid gland] Onset: 8 Resolved: 8 Chronic Cancer of thyroid (12 sources) History of malignant neoplasm of thyroid; Translations: [Personal history of malignant neoplasm of thyroid] 11-16-2023 Episodic Chronic kidney disease (20 sources) Chronic kidney disease stage 2; Translations: [Chronic kidney disease, stage 2 (mild)] 11-16-2023 Chronic Coagulation and hemorrhagic disorders (6 sources) Thrombocytopenic disorder; Translations: [Thrombocytopenia, unspecified] 02-12-2018 Chronic Complications of surgical procedures or medical care (2 sources) Postoperative hypothyroidism; Translations: [Postprocedural hypothyroidism] Chronic Diabetes mellitus with complications (20 sources) Type 2 diabetes mellitus; Translations: [Type 2 diabetes mellitus with diabetic chronic kidney disease] 11-16-2023 Chronic Diabetes mellitus without complication (20 sources) Diabetes mellitus; Translations: [Type 2 diabetes mellitus without complications] Onset: 4 11-13-2022 Chronic Disorders of lipid metabolism (1 source) Pure hypercholesterolemia, unspecified; Translations: [Pure hypercholesterolemia, unspecified] Onset: 4 Chronic Diverticulosis and diverticulitis (6 sources) Diverticulitis; Translations: [Diverticulitis of intestine, part unspecified, without perforation or abscess without bleeding] 06-24-2018 Chronic Essential hypertension (20 sources) Benign essential hypertension; Translations: [Essential (primary) hypertension] Onset: 4 11-16-2023 Chronic Genitourinary symptoms and ill-defined conditions (6 sources) Urinary symptoms ; Translations: [Unspecified symptoms and signs involving the genitourinary system] 11-10-2013 Episodic Heart valve disorders (12 sources) Mitral valve disorders 03-19-2022 Chronic Immunizations and screening for infectious disease (20 sources) Encounter for immunization; Translations: [Other specified vaccinations against streptococcus pneumoniae [pneumococcus]] 05-24-2019 Episodic Miscellaneous mental health disorders (6 sources) Feeling of lump in throat; Translations: [Gastrointestinal malfunction arising from mental factors] 07-13-2017 Chronic Nonspecific chest pain (18 sources) Chest pain; Translations: [Chest pain, unspecified] 11-12-2022 Episodic Open wounds of extremities (18 sources) Laceration of tendon of rotator cuff; Translations: [Laceration of muscle(s) and tendon(s) of the rotator cuff of right shoulder, initial encounter] 12-01-2023 Episodic Osteoarthritis (12 sources) Osteoarthrosis, generalized, multiple sites 03-19-2022 Chronic Other aftercare (20 sources) Drug indicated; Translations: [Other [place] [facility] (current) drug therapy] 03-19-2022 Episodic Other aftercare (12 sources) Antibiotic prophylaxis indicated; Translations: [Long-term (current) use of antibiotics] 02-09-2018 Episodic Other aftercare (20 sources) Patient encounter status; Translations: [Encounter for therapeutic drug level monitoring] 02-08-2016 Episodic Other connective tissue disease (12 sources) History of total knee arthroplasty; Translations: [Presence of right artificial knee joint] 11-16-2023 Chronic Other connective tissue disease (20 sources) Pain in right lower limb; Translations: [Pain in right leg] 05-23-2019 Episodic Other connective tissue disease (12 sources) Tendinitis of right rotator cuff; Translations: [Other shoulder lesions, right shoulder] 11-16-2023 Episodic Other female genital disorders (18 sources) Vulval irritation; Translations: [Other specified noninflammatory disorders of vulva and perineum] 11-16-2023 Episodic Other gastrointestinal disorders (12 sources) Splenomegaly; Translations: [Splenomegaly, not elsewhere classified] 05-15-2020 Episodic Other injuries and conditions due to external causes (12 sources) At risk for falls ; Translations: [History of falling] 03-19-2022 Episodic Other injuries and conditions due to external causes (18 sources) Thumb injury ; Translations: [Unspecified injury of unspecified wrist, hand and finger(s), initial encounter] 03-20-2022 Episodic Other lower respiratory disease (20 sources) Cough; Translations: [Cough] 03-19-2022 Episodic Other non-traumatic joint disorders (20 sources) Pain in right shoulder; Translations: [Pain in joint, shoulder region] 11-16-2023 Episodic Other non-traumatic joint disorders (12 sources) Pain in left shoulder; Translations: [Pain in joint, shoulder region] 09-21-2020 Episodic Other nutritional; endocrine; and metabolic disorders (2 sources) Obese class II; Translations: [Obesity, unspecified] Onset: 9 12-14-2018 Chronic Other nutritional; endocrine; and metabolic disorders (20 sources) Body mass index 30+ - obesity; Translations: [Body mass index (BMI) 35.0-35.9, adult] 12-11-2017 Chronic Other screening for suspected conditions (not mental disorders or infectious disease) (20 sources) Breast neoplasm screening status; Translations: [Encounter for other screening for malignant neoplasm of breast] Onset: 4 03-19-2022 Episodic Other skin disorders (12 sources) Folliculitis; Translations: [Follicular disorder, unspecified] 11-16-2023 Episodic Other skin disorders (12 sources) Milia; Translations: [Epidermal cyst] 11-16-2023 Episodic Other skin disorders (6 sources) Swelling, mass, or lump in head and neck 04-07-2012 Episodic Other upper respiratory disease (20 sources) Vocal cord paralysis; Translations: [Paralysis of vocal cords and larynx, unilateral] Onset: 7 09-27-2018 Chronic Other upper respiratory infections (12 sources) Upper respiratory infection; Translations: [Acute upper respiratory infection, unspecified] 03-19-2022 Episodic Residual codes; unclassified (12 sources) Influenza vaccination declined; Translations: [Immunization not carried out because of patient refusal] 03-19-2022 Episodic Spondylosis; intervertebral disc disorders; other back problems (20 sources) Lumbar disc prolapse with radiculopathy; Translations: [Intervertebral disc disorders with radiculopathy, lumbar region] 06-18-2021 Episodic Thyroid disorders (20 sources) Multinodular goiter; Translations: [Nontoxic multinodular goiter] Onset: 7 10-21-2017 Chronic Unclassified (6 sources) 12-24-2022 Unclassified (6 sources) 12-24-2022 Unclassified (6 sources) 12-24-2022 Viral infection (12 sources) Herpes zoster; Translations: [Zoster without complications] 11-16-2023 Episodic Past or Other Problems Problem Classification Problem Date Documented Da te Episodic/Chronic Mood disorders (2 sources) Mood disorders Onset: 06-12-2022 Resolved: 06-17-2023 06-12-2022 Other upper respiratory disease (2 sources) Dysphonia; Translations: [Dysphonia] Onset: 09-27-2018 09-27-2018 Episodic Results Test Name Value Interpretation Reference Range Facil ity Vital Signs Date Time Vital Sign Value Performing Clinician Faci lity 11-16-2023 15:40-0500 Body height 163.83 cm Joanne Bailey LPN [facility], [facility] [employer] 11-16-2023 15:40-0500 Body mass index (BMI) [Ratio] 34.64 kg/m2 MelizaLauren Bailey MUSIC SOUND LIGHT TECHNICIAN [facility], [facility] [employer] 11-16-2023 15:40-0500 Body surface area Derived from formula 1.99 m2 [facility] Leo MUSIC SOUND LIGHT TECHNICIAN [employer] [facility], [facility] [employer] 11-16-2023 15:40-0500 Body weight 92.99 kg Joanne Bailey MUSIC SOUND LIGHT TECHNICIAN [employer] [facility], [facility] [employer] 11-16-2023 15:40-0500 Diastolic blood pressure 75 mm[Hg] MelizaLauren Bailey MUSIC SOUND LIGHT TECHNICIAN [place] [employer] [facility], [facility] [employer] 11-16-2023 15:40-0500 Heart rate 72 /min [facility] Leo MUSIC SOUND LIGHT TECHNICIAN [employer] [facility], [facility] [employer] 11-16-2023 15:40-0500 Systolic blood pressure 131 mm[Hg] MelizaLauren Bailey MUSIC SOUND LIGHT TECHNICIAN [place] [employer] [facility], [facility] [employer] 10-23-2023 09:28-0500 Body height 163.83 cm Marjorie Barnes MA [employer] [facility], [employer] 10-23-2023 09:28-0500 Body mass index (BMI) [Ratio] 34.64 kg/m2 Marjorie Barnes MA [facility], [facility] [employer] 10-23-2023 09:28-0500 Body surface area Derived from formula 1.99 m2 Marjorie Cameron HARDIN [facility], [facility] [employer] 10-23-2023 09:28-0500 Body weight 92.99 kg Marjorie Cameron HARDIN [place] [employer] [facility], [facility] [employer] 10-23-2023 09:28-0500 Diastolic blood pressure 81 mm[Hg] Marjorie Barnes MA [facility] [employer] 10-23-2023 09:28-0500 Heart rate 71 /min Marjorie Barnes MA [facility] [employer] 10-23-2023 09:28-0500 Systolic blood pressure 150 mm[Hg] Marjorie Barnes MA [facility] [employer] 10-20-2023 09:14-0500 Body height 163.83 cm MelizaLauren Bailey LPN [employer] [facility], [facility] [employer] 10-20-2023 09:14-0500 Body mass index (BMI) [Ratio] 34.31 kg/m2 Joanne Bailey LPN [employer] [facility], [facility] [employer] 10-20-2023 09:14-0500 Body surface area Derived from formula 1.98 m2 Joanne Bailey MUSIC SOUND LIGHT TECHNICIAN [employer] [facility], [facility] [employer] 10-20-2023 09:14-0500 Body weight 92.08 kg Joanne Bailey MUSIC SOUND LIGHT TECHNICIAN [employer] [facility], [facility] [employer] 10-20-2023 09:14-0500 Diastolic blood pressure 80 mm[Hg] Joanne Bailey LPN [employer] [facility], [facility] [employer] 10-20-2023 09:14-0500 Heart rate 56 /min Joanne Bailey LPN [employer], [employer] 10-20-2023 09:14-0500 Systolic blood pressure 124 mm[Hg] Joanne Bailey MUSIC SOUND LIGHT TECHNICIAN [facility] [employer] [facility], [facility] 10-09-2023 11:35-0500 Body height 163.83 cm Lore Choulabach [facility], [facility] [employer], [employer] 10-09-2023 11:35-0500 Body mass index (BMI) [Ratio] 34.31 kg/m2 Lore Perez Valentina [facility], [facility] [employer], [employer] 10-09-2023 11:35-0500 Body surface area Derived from formula 1.98 m2 Lore Perez Valentina [facility] [employer] [facility] [employer] 10-09-2023 11:35-0500 Body weight 92.08 kg Lore M Valentian [facility] [employer] [facility] [employer] 10-09-2023 11:35-0500 Diastolic blood pressure 69 mm[Hg] Lore M Valentina [facility] [employer] [facility].; [employer]. 10-09-2023 11:35-0500 Heart rate 68 /min Lore Perez Valentina [facility] [employer] 10-09-2023 11:35-0500 Systolic blood pressure 105 mm[Hg] Lore M Valentina [facility] [employer] [facility]. 10-05-2023 09:12-0500 Body height 163.83 cm Nadja Mckay RN [place] [employer] [facility].; [employer] 10-05-2023 09:12-0500 Body mass index (BMI) [Ratio] 34.31 kg/m2 Nadja Mckay RN [place] [employer] [facility].; [employer] 10-05-2023 09:12-0500 Body surface area Derived from formula 1.98 m2 Nadja Mckay RN [place] [employer] [facility].; [employer] 10-05-2023 09:12-0500 Body temperature 98.6 [degF] Nadja Mckay RN [facility] [employer] 10-05-2023 09:12-0500 Body weight 92.08 kg Nadja Mckay RN [facility], [facility].; [employer] 10-05-2023 09:12-0500 Diastolic blood pressure 68 mm[Hg] Nadja Mckay RN [facility] [employer] 10-05-2023 09:12-0500 Heart rate 73 /min Nadja Mckay RN [facility], [facility].; [employer] 10-05-2023 09:12-0500 Systolic blood pressure 111 mm[Hg] Nadja Mckay RN [place] [employer] [facility], [facility] [employer] 09-28-2023 08:59-0400 Body height 163.83 cm Joanne Bailey LPN [facility] [employer], [employer] 09-28-2023 08:59-0400 Body mass index (BMI) [Ratio] 33.8 kg/m2 Meliza Stuckey [facility], [facility] [employer], [employer] 09-28-2023 08:59-0400 Body surface area Derived from formula 1.97 m2 Joanne Bailey LPN [facility] [employer] 09-28-2023 08:59-0400 Body weight 90.72 kg Joanne Bailey LPN [place] [employer] [facility], [facility] [employer] 09-28-2023 08:59-0400 Diastolic blood pressure 72 mm[Hg] Joanne Bailey LPN [place] [employer] [facility], [facility] [employer] 09-28-2023 08:59-0400 Heart rate 92 /min Joanne Bailey LPN [place] [employer] [facility], [facility].; [employer] 09-28-2023 08:59-0400 Systolic blood pressure 152 mm[Hg] Joanne Bailey LPN [place] [employer] [facility], [facility] [employer] 06-17-2023 11:51-0400 Body height 161.3 cm Armond Mosquera MD Work Phone: [facility] 06-17-2023 11:51-0400 Body mass index (BMI) [Ratio] 35.33 kg/m2 Armond Mosquera MD Work Phone: [facility] 06-17-2023 11:51-0400 Body temperature 97.9 [degF] Armond Mosquera MD Work Phone: [facility] 06-17-2023 11:51-0400 Body weight 91.9 kg Armond Mosquera MD Work Phone: [facility] 06-17-2023 11:51-0400 Diastolic blood pressure 72 mm[Hg] Armond Mosquera MD Work Phone: [facility] 06-17-2023 11:51-0400 Heart rate 65 /min Armond Mosquera MD Work Phone: [facility] 06-17-2023 11:51-0400 Respiratory rate 18 /min Armond Mosquera MD Work Phone: [facility] 06-17-2023 11:51-0400 SaO2% (BldA) [Mass fraction] 97 % Armond Mosquera MD Work Phone: [facility] 06-17-2023 11:51-0400 Systolic blood pressure 152 mm[Hg] Armond Mosquera MD Work Phone: [facility] 04-20-2023 08:01-0400 Body height 163.83 cm Kirk Mercado MD Work Phone: [facility]. 04-20-2023 08:01-0400 Body mass index (BMI) [Ratio] 33.8 kg/m2 Kirk Mercado MD Work Phone: [facility] [employer] 04-20-2023 08:01-0400 Body surface area Derived from formula 1.97 m2 Kirk Mercado MD Work Phone: [employer] 04-20-2023 08:01-0400 Body weight 90.72 kg Kirk Mercado MD Work Phone: [employer]; [employer] 04-20-2023 08:01-0400 Diastolic blood pressure 80 mm[Hg] Kirk Mercado MD Work Phone: [employer]; [employer] 04-20-2023 08:01-0400 Heart rate 57 /min Kirk Mercado MD Work Phone: [employer] 04-20-2023 08:01-0400 Systolic blood pressure 134 mm[Hg] Kirk Mercado MD Work Phone: [employer] 12-24-2022 10:11-0500 Body height 163.83 cm Lore Montgomery [facility] [employer] 12-24-2022 10:11-0500 Body mass index (BMI) [Ratio] 33.46 kg/m2 [facility] [employer] 12-24-2022 10:11-0500 Body surface area Derived from formula 1.96 m2 Lore Montgomery MUSIC SOUND LIGHT TECHNICIAN [employer]; [employer] 12-24-2022 10:11-0500 Body weight 89.81 kg Lore Montgomery MUSIC SOUND LIGHT TECHNICIAN [employer] 12-24-2022 10:11-0500 Diastolic blood pressure 74 mm[Hg] Lore Montgomery LPN [employer] 12-24-2022 10:11-0500 Heart rate 76 /min Lore Montgomery LPN [employer] 12-24-2022 10:11-0500 Systolic blood pressure 111 mm[Hg] Lore Montgomery MUSIC SOUND LIGHT TECHNICIAN [employer] 11-12-2022 11:23-0500 Body height 163.83 cm Krik Mercado MD Work Phone: [employer] 11-12-2022 11:23-0500 Body mass index (BMI) [Ratio] 32.95 kg/m2 Kirk Mercado MD Work Phone: [employer] 11-12-2022 11:23-0500 Body surface area Derived from formula 1.95 m2 Kirk Mercado MD Work Phone: [employer] 11-12-2022 11:23-0500 Body weight 88.45 kg Kirk Mercado MD Work Phone: [employer]; [employer] 11-12-2022 11:23-0500 Diastolic blood pressure 78 mm[Hg] Kirk Mercado MD Work Phone: [employer]; [employer] 11-12-2022 11:23-0500 Heart rate 67 /min Kirk Mercado MD Work Phone: [employer]; [employer] 11-12-2022 11:23-0500 Systolic blood pressure 145 mm[Hg] Kirk Mercado MD Work Phone: [employer]; [employer] 11-11-2022 10:10-0500 Diastolic blood pressure 78 mm[Hg] Brenda Baez LPN Work Phone: [employer]; [employer] Work Phone: 11-11-2022 10:10-0500 Heart rate 58 /min Brendasukhi Baez LPN Work Phone: [place] [employer] [facility], [employer] Work Phone: 11-11-2022 10:10-0500 Systolic blood pressure 146 mm[Hg] Brenda Baez LPN Work Phone: [place] [employer] [facility], Inc.; [employer] Work Phone: 08-25-2022 15:01-0400 Body height 163.83 cm Joanne Bailey [facility], Inc.; [employer] 08-25-2022 15:01-0400 Body mass index (BMI) [Ratio] 33.63 kg/m2 Joanne Bailey [facility] [employer] [facility], Inc.; [employer] 08-25-2022 15:01-0400 Body surface area Derived from formula 1.96 m2 [facility], Inc.; [employer] 08-25-2022 15:01-0400 Body weight 90.27 kg Joanne Bailey MUSIC SOUND LIGHT TECHNICIAN [employer] [facility], Inc.; [employer] 08-25-2022 15:01-0400 Diastolic blood pressure 79 mm[Hg] Joanne Bailey MUSIC SOUND LIGHT TECHNICIAN [place] [employer] [facility], Inc.; [employer] 08-25-2022 15:01-0400 Heart rate 74 /min Joanne Bailey [facility], Inc.; [employer] 08-25-2022 15:01-0400 Systolic blood pressure 161 mm[Hg] Joanne Bailey MONICA [employer] [facility], Inc.; [employer] 06-18-2022 10:27-0400 Body height 163.83 cm Milady Shipman MUSIC SOUND LIGHT TECHNICIAN [employer] [facility], Inc.; [employer] 06-18-2022 10:27-0400 Body mass index (BMI) [Ratio] 33.8 kg/m2 Milady Shipman MUSIC SOUND LIGHT TECHNICIAN [employer] [facility], Inc.; [employer] 06-18-2022 10:27-0400 Body surface area Derived from formula 1.97 m2 Milady Shipman LPN [facility].; [facility] 06-18-2022 10:27-0400 Body weight 90.72 kg Milady Shipman LPN [facility].; [facility] 06-18-2022 10:27-0400 Diastolic blood pressure 77 mm[Hg] Milady Shipman LPN [facility].; [facility]. 06-18-2022 10:27-0400 Heart rate 68 /min Milady Shipman LPN [facility].; [facility] 06-18-2022 10:27-0400 Systolic blood pressure 138 mm[Hg] Milady Shipman LPN [facility].; [facility]. 06-12-2022 11:02-0400 Body height 161.3 cm Armond Mosquera MD Work Phone: [facility] 06-12-2022 11:02-0400 Body mass index (BMI) [Ratio] 34.61 kg/m2 Armond Mosquera MD Work Phone: [facility] 06-12-2022 11:02-0400 Body temperature 98.1 [degF] Armond Mosquera MD Work Phone: [facility] 06-12-2022 11:02-0400 Body weight 90.04 kg Armond Mosquera MD Work Phone: [facility] 06-12-2022 11:02-0400 Diastolic blood pressure 61 mm[Hg] Armond Mosquera MD Work Phone: [facility] 06-12-2022 11:02-0400 Heart rate 67 /min Armond Mosquera MD Work Phone: [facility] 06-12-2022 11:02-0400 Respiratory rate 18 /min Armond Mosquera MD Work Phone: [facility] 06-12-2022 11:02-0400 SaO2% (BldA) [Mass fraction] 96 % Armond Mosquera MD Work Phone: [facility] 06-12-2022 11:02-0400 Systolic blood pressure 137 mm[Hg] Armond Mosquera MD Work Phone: [facility] 03-19-2022 14:22-0400 Body height 163.83 cm Esther King [facility], Inc.; [employer] 03-19-2022 14:22-0400 Body mass index (BMI) [Ratio] 33.97 kg/m2 Esther King [facility], Inc.; [employer] 03-19-2022 14:22-0400 Body surface area Derived from formula 1.97 m2 Esther King [facility], Inc.; [employer] 03-19-2022 14:22-0400 Body weight 91.17 kg Esther King [facility], Inc.; [employer] 03-19-2022 14:22-0400 Diastolic blood pressure 77 mm[Hg] Esther King [facility], Inc.; [employer] 03-19-2022 14:22-0400 Heart rate 67 /min Esther King [facility], Inc.; [employer] 03-19-2022 14:22-0400 Systolic blood pressure 129 mm[Hg] Esther King [facility], Inc.; [employer] 01-14-2022 14:59-0500 Body height 163.83 cm MelizaLauren Bailey [facility] [employer] 01-14-2022 14:59-0500 Body mass index (BMI) [Ratio] 34.14 kg/m2 Meliza Leo [facility] [employer] 01-14-2022 14:59-0500 Body surface area Derived from formula 1.98 m2 [facility] Aucilla MUSIC SOUND LIGHT TECHNICIAN [employer] 01-14-2022 14:59-0500 Body temperature 97.9 [degF] Joanne Bailey [facility], Inc.; [employer] 01-14-2022 14:59-0500 Body weight 91.63 kg Jonane Bailey [facility], Inc.; [employer] 01-14-2022 14:59-0500 Diastolic blood pressure 64 mm[Hg] Joanne Bailey [facility], Inc.; [employer] 01-14-2022 14:59-0500 Heart rate 74 /min Joanne Bailey [facility], Inc.; [employer] 01-14-2022 14:59-0500 Systolic blood pressure 142 mm[Hg] Joanne Bailey [facility] [employer] [facility], Inc.; [employer] 12-18-2021 09:16-0500 Body height 163.83 cm Esther Christine [facility], [facility].; [employer] 12-18-2021 09:16-0500 Body mass index (BMI) [Ratio] 34.14 kg/m2 Esther Christine [facility] [employer] [facility], Inc.; [employer] 12-18-2021 09:16-0500 Body surface area Derived from formula 1.98 m2 Esther King [facility] [employer] [facility], Inc.; [employer] 12-18-2021 09:16-0500 Body weight 91.63 kg Esther Christine [facility] [employer] [facility], [facility].; [employer] 12-18-2021 09:16-0500 Diastolic blood pressure 80 mm[Hg] Esther Vaughanr [facility] Center[facility], Inc.; [employer] 12-18-2021 09:16-0500 Heart rate 64 /min Esther Christine [facility] [employer] [facility], Inc.; [employer] 12-18-2021 09:16-0500 Systolic blood pressure 129 mm[Hg] Esther Vaughanr [facility] Center[facility] HospitalNYX Interactive.; [employer] 06-18-2021 13:26-0400 Body height 163.83 cm Kirk Mercado MD Work Phone: [employer] 06-18-2021 13:26-0400 Body mass index (BMI) [Ratio] 33.63 kg/m2 Kirk Mercado MD Work Phone: [employer] 06-18-2021 13:26-0400 Body surface area Derived from formula 1.96 m2 Kirk Mercado MD Work Phone: [employer]; [employer] 06-18-2021 13:26-0400 Body weight 90.27 kg Kirk Mercado MD Work Phone: [employer] 06-18-2021 13:26-0400 Diastolic blood pressure 65 mm[Hg] Kirk Mercado MD Work Phone: [employer] 06-18-2021 13:26-0400 Heart rate 69 /min Kirk Mercado MD Work Phone: [employer]; [employer] 06-18-2021 13:26-0400 Systolic blood pressure 135 mm[Hg] Kirk Mercado MD Work Phone: [employer] 02-19-2021 10:44-0400 Body height 163.83 cm [facility] Inc.; [employer] 02-19-2021 10:44-0400 Body mass index (BMI) [Ratio] 33.63 kg/m2 [facility], Inc.; [employer] 02-19-2021 10:44-0400 Body surface area Derived from formula 1.96 m2 [facility], Inc.; [employer] 02-19-2021 10:44-0400 Body weight 90.27 kg Joanne Bailey LPN [facility], Inc.; [employer] [facility], Inc. 02-19-2021 10:44-0400 Diastolic blood pressure 75 mm[Hg] Joanne Bailey [facility], Inc.; [employer] [facility], Inc. 02-19-2021 10:44-0400 Heart rate 60 /min Joanne Bailey [facility], Inc.; [employer] [facility], Inc. 02-19-2021 10:44-0400 Systolic blood pressure 136 mm[Hg] Joanne Bailey [facility], Inc.; [employer] [facility], Inc. 01-28-2021 10:34-0500 Body height 163.83 cm Joanne Bailey MUSIC SOUND LIGHT TECHNICIAN [facility], Inc.; [employer], [employer] 01-28-2021 10:34-0500 Body mass index (BMI) [Ratio] 33.63 kg/m2 Joanne Bailey [facility], Inc.; [employer] [facility], Inc. 01-28-2021 10:34-0500 Body surface area Derived from formula 1.96 m2 Meliza Stuckey [facility], Inc.; [employer] [facility], Inc. 01-28-2021 10:34-0500 Body weight 90.27 kg Joanne Bailey LPN [facility], Inc.; [employer] [facility], Inc. 01-28-2021 10:34-0500 Diastolic blood pressure 80 mm[Hg] Joanne Bailey MUSIC SOUND LIGHT TECHNICIAN [facility], Inc.; [employer] [facility], Inc. 01-28-2021 10:34-0500 Heart rate 75 /min MelizaLauren Bailey [facility], Inc.; [employer], [employer] 01-28-2021 10:34-0500 Systolic blood pressure 129 mm[Hg] Joanne Bailey MUSIC SOUND LIGHT TECHNICIAN [facility], Inc.; [employer], [employer] 09-21-2020 09:06-0400 Body height 163.83 cm Nadja Mckay RN [facility], [facility].; [employer] [facility], [facility]. 09-21-2020 09:06-0400 Body mass index (BMI) [Ratio] 34.48 kg/m2 Nadja Mckay RN [place] [employer] [facility] Hospital[facility].; [employer] [facility] HospitalQ[facility]. 09-21-2020 09:06-0400 Body surface area Derived from formula 1.98 m2 Nadja Mckay RN [employer] [facility] HospitalQ[facility].; [employer] [facility]. 09-21-2020 09:[id number] Body weight 92.53 kg Nadja Mckay RN [place] [employer] [facility] Hospital[facility].; [employer] [facility]. 09-21-2020 09:[id number] Diastolic blood pressure 75 mm[Hg] Nadja Mckay RN [employer] [facility].; [employer] [facility]. 09-21-2020 09:060400 Heart rate 72 /min Nadja Mckay RN [employer] [facility].; [employer] 09-21-2020 09:[id number] Systolic blood pressure 130 mm[Hg] Nadja Mckay RN [employer] [facility] HospitalQ[facility].; [employer] [facility]. 05-14-2020 09:[id number] Body height 163.83 cm Nadja Mckay RN [employer] [facility] HospitalQ[facility].; [employer]. 05-14-2020 09:21-0400 Body mass index (BMI) [Ratio] 35.32 kg/m2 Nadja Mckay RN [employer] [facility] HospitalQ[facility].; [employer]Gr[employer] [facility]. 05-14-2020 09:[id number] Body surface area Derived from formula 2 m2 Nadja Mckay RN [employer] [facility].; [employer] [facility]. 05-14-2020 09:[id number] Body weight 94.8 kg Nadja Mckay RN [employer] [facility] HospitalQ[facility].; [employer]Gr[employer] [facility]. 05-14-2020 09:21-0400 Diastolic blood pressure 78 mm[Hg] Nadja Mckay RN [employer] [facility].; [employer] 05-14-2020 09:21-0400 Heart rate 72 /min Nadja Mckay RN [employer] 05-14-2020 09:21-0400 Systolic blood pressure 145 mm[Hg] Nadja Mckay RN [employer] 04-11-2020 07:08-0400 Body height 163.83 cm Kirk Mercado MD Work Phone: [employer]; [employer] 04-11-2020 07:08-0400 Body mass index (BMI) [Ratio] 34.98 kg/m2 Kirk Mercado MD Work Phone: [employer]; [employer] 04-11-2020 07:08-0400 Body surface area Derived from formula 2 m2 Kirk Mercado MD Work Phone: [employer]; [employer] 04-11-2020 07:08-0400 Body weight 93.9 kg Kirk Mercado MD Work Phone: [employer]; [employer] 04-11-2020 07:08-0400 Diastolic blood pressure 80 mm[Hg] Kirk Mercado MD Work Phone: [employer]; [employer] 04-11-2020 07:08-0400 Heart rate 76 /min Kirk Mercado MD Work Phone: [employer]; [employer] 04-11-2020 07:08-0400 Systolic blood pressure 136 mm[Hg] Kirk Mercado MD Work Phone: [employer]; [employer] 08-09-2019 14:13-0400 Body height 163.83 cm Kirk Mercado MD Work Phone: [employer]; [employer] 08-09-2019 14:13-0400 Body mass index (BMI) [Ratio] 35.15 kg/m2 Kirk Mercado MD Work Phone: [employer]; [employer] 08-09-2019 14:13-0400 Body surface area Derived from formula 2 m2 Kirk Mercado MD Work Phone: [employer] 08-09-2019 14:13-0400 Body weight 94.35 kg Kirk Mercado MD Work Phone: [employer]; [employer] 08-09-2019 14:13-0400 Diastolic blood pressure 76 mm[Hg] Kirk Mercado MD Work Phone: [employer] 08-09-2019 14:13-0400 Heart rate 76 /min Kirk Mercado MD Work Phone: [employer] 08-09-2019 14:13-0400 Systolic blood pressure 132 mm[Hg] Kirk Mercado MD Work Phone: [employer] 05-24-2019 11:09-0400 Body height 163.83 cm Joanne Bailey [facility] [employer] 05-24-2019 11:09-0400 Body mass index (BMI) [Ratio] 34.64 kg/m2 Joanne Bailey MONICA [employer] 05-24-2019 11:09-0400 Body surface area Derived from formula 1.99 m2 Joanne Bailey MUSIC SOUND LIGHT TECHNICIAN [employer] 05-24-2019 11:09-0400 Body weight 92.99 kg Joanne Bailey MUSIC SOUND LIGHT TECHNICIAN [employer] 05-24-2019 11:09-0400 Diastolic blood pressure 78 mm[Hg] Joanne Bailey MONICA [employer] 05-24-2019 11:09-0400 Heart rate 103 /min Joanne Dislaey MUSIC SOUND LIGHT TECHNICIAN [employer] 05-24-2019 11:09-0400 Systolic blood pressure 131 mm[Hg] Joanne Bailey MUSIC SOUND LIGHT TECHNICIAN [employer] 11-26-2018 14:45-0500 Body height 163.83 cm Shraddha Jag Mutkingsleybaugh MUSIC SOUND LIGHT TECHNICIAN [employer] 11-26-2018 14:45-0500 Body mass index (BMI) [Ratio] 34.98 kg/m2 Shraddha K Mutersbaugh MUSIC SOUND LIGHT TECHNICIAN [employer] 11-26-2018 14:45-0500 Body surface area Derived from formula 2 m2 Shraddha K Mutersbaugh MUSIC SOUND LIGHT TECHNICIAN [employer], [employer] 11-26-2018 14:45-0500 Body weight 93.9 kg Shraddha K Mutersbaugh MUSIC SOUND LIGHT TECHNICIAN [employer], [employer]. 11-26-2018 14:45-0500 Diastolic blood pressure 76 mm[Hg] Shraddha K Mutersbaugh MUSIC SOUND LIGHT TECHNICIAN [employer], [employer]. 11-26-2018 14:45-0500 Heart rate 89 /min Shraddha K Mutersbaugh MUSIC SOUND LIGHT TECHNICIAN [employer]. 11-26-2018 14:45-0500 Systolic blood pressure 162 mm[Hg] Shraddha K Mutersbaugh MUSIC SOUND LIGHT TECHNICIAN [employer] 07-14-2018 06:46-0400 Body height 163.83 cm Kirk Mercado MD Work Phone: [employer]; [employer] 07-14-2018 06:46-0400 Body mass index (BMI) [Ratio] 34.81 kg/m2 Kirk Mercado MD Work Phone: [employer]; [employer] 07-14-2018 06:46-0400 Body surface area Derived from formula 1.99 m2 Kirk Mercado MD Work Phone: [employer]; [employer] 07-14-2018 06:46-0400 Body weight 93.44 kg Kirk Mercado MD Work Phone: [employer]; [employer] 07-14-2018 06:46-0400 Diastolic blood pressure 71 mm[Hg] Kirk Mercado MD Work Phone: [employer]; [employer] 07-14-2018 06:46-0400 Heart rate 67 /min Kirk Mercado MD Work Phone: [employer]; [employer] 07-14-2018 06:46-0400 Systolic blood pressure 130 mm[Hg] Kirk Mercado MD Work Phone: [employer]; [employer] 06-24-2018 11:21-0400 Body height 163.83 cm Shraddha K Mutersbaugh MUSIC SOUND LIGHT TECHNICIAN [employer] 06-24-2018 11:21-0400 Body mass index (BMI) [Ratio] 34.98 kg/m2 Shraddha K Mutersbaugh MUSIC SOUND LIGHT TECHNICIAN [employer] 06-24-2018 11:21-0400 Body surface area Derived from formula 2 m2 Shraddha K Mutersbaugh MUSIC SOUND LIGHT TECHNICIAN [employer] 06-24-2018 11:21-0400 Body temperature 100.2 [degF] Shraddha K Mutersbaugh MUSIC SOUND LIGHT TECHNICIAN [employer] 06-24-2018 11:21-0400 Body weight 93.9 kg Shraddha K Mutersbaugh MUSIC SOUND LIGHT TECHNICIAN [employer]; [employer] 06-24-2018 11:21-0400 Diastolic blood pressure 76 mm[Hg] Shraddha K Mutersbaugh MUSIC SOUND LIGHT TECHNICIAN [employer] 06-24-2018 11:21-0400 Heart rate 90 /min Shraddha K Mutersbaugh MUSIC SOUND LIGHT TECHNICIAN [employer]; [employer] 06-24-2018 11:21-0400 Systolic blood pressure 146 mm[Hg] Shraddhasa Jag Walker LPN [employer] [facility], Inc.; [employer] 01-25-2018 09:29-0500 Body height 163.83 cm Anna Green LPN [employer] 01-25-2018 09:29-0500 Body mass index (BMI) [Ratio] 35.32 kg/m2 Anna Green LPN [employer] 01-25-2018 09:29-0500 Body surface area Derived from formula 2 m2 [facility].; [employer] 01-25-2018 09:29-0500 Body weight 94.8 kg Anna Green LPN [employer] 01-25-2018 09:29-0500 Diastolic blood pressure 76 mm[Hg] Anna Green LPN [employer].; [employer] 01-25-2018 09:29-0500 Heart rate 63 /min Anna Green [facility].; [employer] 01-25-2018 09:29-0500 Systolic blood pressure 143 mm[Hg] Anna Green LPN [employer] 01-08-2018 13:57-0500 Body height 163.83 cm Kirk Mercado MD Work Phone: [employer]; [employer] 01-08-2018 13:57-0500 Body mass index (BMI) [Ratio] 35.66 kg/m2 Kirk Mercado MD Work Phone: [employer]; [employer] 01-08-2018 13:57-0500 Body surface area Derived from formula 2.01 m2 Kirk Mercado MD Work Phone: [employer]; [employer] 01-08-2018 13:57-0500 Body weight 95.71 kg Kirk Mercado MD Work Phone: [employer] 01-08-2018 13:57-0500 Diastolic blood pressure 78 mm[Hg] Kirk Mercado MD Work Phone: [employer] 01-08-2018 13:57-0500 Heart rate 66 /min Kirk Mercado MD Work Phone: [employer] 01-08-2018 13:57-0500 Systolic blood pressure 124 mm[Hg] Kirk Mercado MD Work Phone: [employer] 12-11-2017 08:51-0500 Body height 163.83 cm Anna Green LPN [employer] 12-11-2017 08:51-0500 Body mass index (BMI) [Ratio] 35.32 kg/m2 Anna Green LPN [employer] 12-11-2017 08:51-0500 Body surface area Derived from formula 2 m2 Anna Green MUSIC SOUND LIGHT TECHNICIAN [employer] 12-11-2017 08:51-0500 Body weight 94.8 kg Anna Green LPN [employer] 12-11-2017 08:51-0500 Diastolic blood pressure 74 mm[Hg] Anna Green LPN [employer] 12-11-2017 08:51-0500 Heart rate 66 /min Anna Green LPN [employer] 12-11-2017 08:51-0500 Systolic blood pressure 147 mm[Hg] Anna Green LPN [employer] 09-05-2017 09:20-0400 Body height 163.83 cm Yarelis Holloway RN [employer] 09-05-2017 09:20-0400 Body mass index (BMI) [Ratio] 34.81 kg/m2 Yarelis Holloway RN [employer] [facility], [facility] [employer] 09-05-2017 09:20-0400 Body surface area Derived from formula 1.99 m2 Yarelis Holloway RN [employer] [facility], [facility].; [employer] 09-05-2017 09:20-0400 Body weight 93.44 kg Yarelis Holloway RN [employer] 09-05-2017 09:20-0400 Diastolic blood pressure 76 mm[Hg] Yarelis Holloway RN [employer] 09-05-2017 09:20-0400 Heart rate 62 /min Yarelis Holloway RN [employer] 09-05-2017 09:20-0400 Systolic blood pressure 144 mm[Hg] Yarelis Holloway RN [employer] 07-13-2017 09:06-0400 Body height 163.83 cm Anna Green LPN [employer] 07-13-2017 09:06-0400 Body mass index (BMI) [Ratio] 35.86 kg/m2 Anna Green LPN [employer] 07-13-2017 09:06-0400 Body surface area Derived from formula 2.02 m2 Anna Green LPN [employer] 07-13-2017 09:06-0400 Body weight 96.25 kg Anna Green LPN [employer] 07-13-2017 09:06-0400 Diastolic blood pressure 76 mm[Hg] Anna Green LPN [employer] 07-13-2017 09:06-0400 Heart rate 69 /min Anna Green LPN [employer] 07-13-2017 09:06-0400 Systolic blood pressure 136 mm[Hg] Anna Green LPN [employer] 02-25-2017 07:32-0400 Body height 163.83 cm Kirk Mercado MD Work Phone: [employer]; [employer] 02-25-2017 07:32-0400 Body mass index (BMI) [Ratio] 35.15 kg/m2 Kirk Mercado MD Work Phone: [employer]; [employer] 02-25-2017 07:32-0400 Body surface area Derived from formula 2 m2 Kirk Mercado MD Work Phone: [employer]; [employer] 02-25-2017 07:32-0400 Body weight 94.35 kg Kirk Mercado MD Work Phone: [employer]; [employer] 02-25-2017 07:32-0400 Diastolic blood pressure 78 mm[Hg] Kirk Mercado MD Work Phone: [employer]; [employer] 02-25-2017 07:32-0400 Heart rate 77 /min Kirk Mercado MD Work Phone: [employer]; [employer] 02-25-2017 07:32-0400 Systolic blood pressure 132 mm[Hg] Kirk Mercado MD Work Phone: [employer]; [employer] 07-30-2016 14:17-0400 Body height 163.83 cm [facility] [employer]; [employer] 07-30-2016 14:17-0400 Body mass index (BMI) [Ratio] 33.12 kg/m2 [facility] [employer] 07-30-2016 14:17-0400 Body surface area Derived from formula 1.95 m2 [facility] [employer] 07-30-2016 14:17-0400 Body weight 88.91 kg Joanne Bailey MONICA [employer] 07-30-2016 14:17-0400 Diastolic blood pressure 88 mm[Hg] Joanne Bailey MONICA [employer] 07-30-2016 14:17-0400 Heart rate 87 /min Joanne Bailey MUSIC SOUND LIGHT TECHNICIAN [employer] 07-30-2016 14:17-0400 Systolic blood pressure 162 mm[Hg] Joanne Bailey MONICA [employer] 01-25-2016 10:44-0500 Body height 163.83 cm Lore Montgomery LPN [employer] 01-25-2016 10:44-0500 Body mass index (BMI) [Ratio] 33.8 kg/m2 [facility] [employer] 01-25-2016 10:44-0500 Body surface area Derived from formula 1.97 m2 Lore Montgomery LPN [employer] 01-25-2016 10:44-0500 Body temperature 98 [degF] Lore Montgomery LPN [employer] 01-25-2016 10:44-0500 Body weight 90.72 kg Lore Montgomery LPN [employer] 01-25-2016 10:44-0500 Diastolic blood pressure 83 mm[Hg] Lore Montgomery LPN [employer] 01-25-2016 10:44-0500 Heart rate 65 /min Lore Montgomery LPN [employer] 01-25-2016 10:44-0500 Systolic blood pressure 137 mm[Hg] Lore Montgomery LPN [employer] 07-30-2015 09:52-0400 Body height 163.83 cm Kirk Mercado MD Work Phone: [employer]; [employer] 07-30-2015 09:52-0400 Body mass index (BMI) [Ratio] 34.14 kg/m2 Kirk Mercado MD Work Phone: [employer]; [employer] 07-30-2015 09:52-0400 Body surface area Derived from formula 1.98 m2 Kirk Mercado MD Work Phone: [employer]; [employer] 07-30-2015 09:52-0400 Body weight 91.63 kg Kirk Mercado MD Work Phone: [employer]; [employer] 07-30-2015 09:52-0400 Diastolic blood pressure 82 mm[Hg] Kirk Mercado MD Work Phone: [employer]; [employer] 07-30-2015 09:52-0400 Heart rate 64 /min Kirk Mercado MD Work Phone: [employer]; [employer] 07-30-2015 09:52-0400 Systolic blood pressure 132 mm[Hg] Kirk Mercado MD Work Phone: [employer]; [employer] 05-16-2015 07:28-0400 Body height 163.83 cm Kirk Mercado MD Work Phone: [employer]; [employer] 05-16-2015 07:28-0400 Body mass index (BMI) [Ratio] 34.81 kg/m2 Kirk Mercado MD Work Phone: [employer]; [employer] 05-16-2015 07:28-0400 Body surface area Derived from formula 1.99 m2 Kirk Mercado MD Work Phone: [employer]; [employer] 05-16-2015 07:28-0400 Body weight 93.44 kg Kirk Mercado MD Work Phone: [employer]; [employer] 05-16-2015 07:28-0400 Diastolic blood pressure 88 mm[Hg] Kirk Mercado MD Work Phone: [employer] 05-16-2015 07:28-0400 Heart rate 68 /min Kirk Mercado MD Work Phone: [employer]; [employer] 05-16-2015 07:28-0400 Systolic blood pressure 148 mm[Hg] Kirk Mercado MD Work Phone: [employer]; [employer] 01-15-2015 09:07-0500 Body weight 92.53 kg Anna Green LPN [employer] 01-15-2015 09:07-0500 Diastolic blood pressure 66 mm[Hg] Anna Green LPN [employer] 01-15-2015 09:07-0500 Heart rate 68 /min Anna Green LPN [employer] 01-15-2015 09:07-0500 Systolic blood pressure 133 mm[Hg] Anna Green LPN [employer] 07-10-2014 09:39-0400 Body height 163.83 cm Kirk Mercado MD Work Phone: [employer]; [employer] 07-10-2014 09:39-0400 Body mass index (BMI) [Ratio] 35.49 kg/m2 Kirk Mercado MD Work Phone: [employer]; [employer] 07-10-2014 09:39-0400 Body surface area Derived from formula 2.01 m2 Kirk Mercado MD Work Phone: [employer]; [employer] 07-10-2014 09:39-0400 Body weight 95.26 kg Kirk Mercado MD Work Phone: [employer]; [employer] 07-10-2014 09:39-0400 Diastolic blood pressure 82 mm[Hg] Kirk Mercado MD Work Phone: [employer] 07-10-2014 09:39-0400 Heart rate 77 /min Kirk Mercado MD Work Phone: [employer]; [employer] 07-10-2014 09:39-0400 Systolic blood pressure 150 mm[Hg] Kirk Mercado MD Work Phone: [employer]; [employer] 01-09-2014 09:31-0500 Body weight 98.43 kg Kirk Mercado MD Work Phone: [employer]; [employer] 01-09-2014 09:31-0500 Diastolic blood pressure 73 mm[Hg] Kirk Mercado MD Work Phone: [employer]; [employer] 01-09-2014 09:31-0500 Heart rate 72 /min Kirk Mercado MD Work Phone: [employer]; [employer] 01-09-2014 09:31-0500 Systolic blood pressure 148 mm[Hg] Kirk Mercado MD Work Phone: [employer]; [employer] 11-09-2013 09:31-0500 Body height 163.83 cm Lore Montgomery LPN [employer] 11-09-2013 09:31-0500 Body mass index (BMI) [Ratio] 37.01 kg/m2 Lore Montgomery LPN [employer] 11-09-2013 09:31-0500 Body surface area Derived from formula 2.04 m2 Lore Montgomery MUSIC SOUND LIGHT TECHNICIAN [employer] 11-09-2013 09:31-0500 Body temperature 97.7 [degF] Lore Perez Valentina ANDERSON [employer] 11-09-2013 09:31-0500 Body weight 99.34 kg Lore Perez Valentina ANDERSON [employer] 11-09-2013 09:31-0500 Diastolic blood pressure 87 mm[Hg] Lore Perez Valentina MUSIC SOUND LIGHT TECHNICIAN [employer] 11-09-2013 09:31-0500 Heart rate 78 /min Lore Perez Valentina CORONELN [employer] 11-09-2013 09:31-0500 Systolic blood pressure 187 mm[Hg] Lore Perez Valentina ANDERSON [employer] 07-25-2013 09:02-0400 Body height 163.83 cm Kirk Mercado MD Work Phone: [employer]; [employer] 07-25-2013 09:02-0400 Body mass index (BMI) [Ratio] 37.35 kg/m2 Kirk Mercado MD Work Phone: [employer]; [employer] 07-25-2013 09:02-0400 Body surface area Derived from formula 2.05 m2 Kirk Mercado MD Work Phone: [employer]; [employer] 07-25-2013 09:02-0400 Body weight 100.25 kg Kirk Mercado MD Work Phone: [employer]; [employer] 07-25-2013 09:02-0400 Diastolic blood pressure 88 mm[Hg] Kirk Mercado MD Work Phone: [employer]; [employer] 07-25-2013 09:02-0400 Heart rate 76 /min Kirk Mercado MD Work Phone: [employer]; [employer] 07-25-2013 09:02-0400 Systolic blood pressure 148 mm[Hg] Kirk Mercado MD Work Phone: [employer] 02-23-2013 09:17-0400 Body height 163.83 cm [facility] [employer] 02-23-2013 09:17-0400 Body mass index (BMI) [Ratio] 37.01 kg/m2 Meliza Leo [facility] [employer] 02-23-2013 09:17-0400 Body surface area Derived from formula 2.04 m2 [facility] [employer] 02-23-2013 09:17-0400 Body weight 99.34 kg [facility] [employer] 02-23-2013 09:17-0400 Diastolic blood pressure 92 mm[Hg] [facility] Leo [facility] [employer] 02-23-2013 09:17-0400 Heart rate 78 /min [facility] Aucilla [facility] [employer] 02-23-2013 09:17-0400 Systolic blood pressure 182 mm[Hg] [facility] Leo [facility] [employer] 01-24-2013 09:120500 Body height 163.83 cm Kirk Mercado MD Work Phone: [employer] 01-24-2013 09:12-0500 Body mass index (BMI) [Ratio] 37.01 kg/m2 Kirk Mercado MD Work Phone: [employer] 01-24-2013 09:12-0500 Body surface area Derived from formula 2.04 m2 Kirk Mercado MD Work Phone: [employer] 01-24-2013 09:12-0500 Body weight 99.34 kg Kirk Mercado MD Work Phone: [employer] 01-24-2013 09:12-0500 Diastolic blood pressure 84 mm[Hg] Kirk Mercado MD Work Phone: [employer] 01-24-2013 09:12-0500 Heart rate 69 /min Kirk Mercado MD Work Phone: [employer] 01-24-2013 09:12-0500 Systolic blood pressure 150 mm[Hg] Kirk Mercado MD Work Phone: [employer] 11-03-2012 09:50-0500 Body weight 98.88 kg Joanne Bailey [facility] [employer] 11-03-2012 09:50-0500 Diastolic blood pressure 93 mm[Hg] Joanne Bailey [facility] [employer] 11-03-2012 09:50-0500 Heart rate 74 /min Joanne Bailey [facility] [employer] 11-03-2012 09:50-0500 Systolic blood pressure 175 mm[Hg] Joanne Bailey [facility] [employer] 06-30-2012 08:24-0400 Body height 163.83 cm Kirk Mercado MD Work Phone: [employer]; [employer] 06-30-2012 08:24-0400 Body mass index (BMI) [Ratio] 36.5 kg/m2 Kirk Mercado MD Work Phone: [employer]; [employer] 06-30-2012 08:24-0400 Body surface area Derived from formula 2.03 m2 Kirk Mercado MD Work Phone: [employer] 06-30-2012 08:24-0400 Body weight 97.98 kg Kirk Mercado MD Work Phone: [employer] 06-30-2012 08:24-0400 Diastolic blood pressure 78 mm[Hg] Kirk Mercado MD Work Phone: [employer] 06-30-2012 08:24-0400 Heart rate 78 /min Kirk Mercado MD Work Phone: [employer] 06-30-2012 08:24-0400 Systolic blood pressure 140 mm[Hg] Kirk Mercado MD Work Phone: [employer] 04-07-2012 09:08-0400 Body height 162.56 cm Meliza Leo [facility] [employer] 04-07-2012 09:08-0400 Body mass index (BMI) [Ratio] 37.08 kg/m2 [facility] Aucilla [facility] [employer] 04-07-2012 09:08-0400 Body surface area Derived from formula 2.02 m2 Meliza Leo MUSIC SOUND LIGHT TECHNICIAN [employer] 04-07-2012 09:08-0400 Body weight 97.98 kg Meliza Leo [facility] [employer] 04-07-2012 09:08-0400 Diastolic blood pressure 86 mm[Hg] Meliza Stuckey MUSIC SOUND LIGHT TECHNICIAN [employer] 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 04-07-2012 09:08-0400 Systolic blood pressure 170 mm[Hg] Joanne Bailey LPN [employer] 01-21-2012 14:41-0500 Body height 162.56 cm Kirk Mercado MD Work Phone: [employer]; [employer] 01-21-2012 14:41-0500 Body mass index (BMI) [Ratio] 37.42 kg/m2 Kirk Mercado MD Work Phone: [employer]; [employer] 01-21-2012 14:41-0500 Body surface area Derived from formula 2.03 m2 Kirk Mercado MD Work Phone: [employer]; [employer] 01-21-2012 14:41-0500 Body weight 98.88 kg Kirk Mercado MD Work Phone: [employer]; [employer] 01-21-2012 14:41-0500 Diastolic blood pressure 91 mm[Hg] Kirk Mercado MD Work Phone: [employer]; [employer] 01-21-2012 14:41-0500 Heart rate 88 /min Kirk Mercado MD Work Phone: [employer]; [employer] 01-21-2012 14:41-0500 Systolic blood pressure 178 mm[Hg] Kirk Mercado MD Work Phone: [employer]; [employer] Encounters Encounter Date Encounter Type Care Provider Facility Start: 12-22-2023 ambulatory SUMMER MITTAL [facility] Start: 12-21-2023 End: 12-21-2023 ambulatory STAS CHRISTIAN [facility] Start: 12-15-2023 End: 12-15-2023 ambulatory KIRK MERCADO David [facility] Start: 12-01-2023 End: 12-01-2023 Kirk Mercado MD Work Phone: [employer] Start: 11-16-2023 End: 11-16-2023 Office outpatient visit 15 minutes Kirk Mercado MD Work Phone: [employer] Start: 11-06-2023 End: [facility]: 10-26-[facility]23 End: 10-26-2023 Kirk Mercado MD Work Phone: [employer] [facility] Start: 10-23-2023 End: 10-23-2023 [facility] Start: 10-23-2023 End: 10-23-2023 Office outpatient visit 25 minutes Kirk Mercado MD Work Phone: [employer] Start: 10-20-2023 End: 10-20-2023 Office outpatient visit 25 minutes Kirk Mercado MD Work Phone: [employer] Start: 10-09-2023 End: 10-09-2023 Office outpatient visit 15 minutes Kirk Mercado MD Work Phone: [employer] Start: 10-06-2023 End: 10-06-2023 Kirk Mercado MD Work Phone: [employer] Start: 10-05-2023 End: 10-05-2023 Office outpatient visit 15 minutes Kirk Mercado MD Work Phone: [employer] Start: 09-28-2023 End: 09-28-2023 Office outpatient visit 15 minutes Kirk Mercado MD Work Phone: [employer] Start: 07-21-2023 End: 07-21-2023 Kirk Mercado MD Work Phone: [employer] Start: 06-17-2023 End: 06-17-2023 Office outpatient visit 25 minutes Armond Mosquera MD Work Phone: Division of Endocrinology Procedures Date Procedure Procedure Detail Performing Clinician Start: 10-26-2023 End: 11-12-2023 Mri any jt upper extremity w/o contrast matrl Desmond Navarro PA-C Work Phone: Start: 10-23-2023 End: 10-26-2023 Radex shoulder complete minimum 2 views Desmond Navarro PA-C Work Phone: Start: 10-20-2023 End: 10-20-2023 Joanne Bailey LP N Start: 07-20-2023 End: 07-20-2023 Joanne Bailey LP N Start: 03-30-2023 End: 03-30-2023 Screening mammography Joanne Bailey LPN Start: 02-23-2023 End: 03-31-2023 Screening digital breast tomosynthesis bi Kirk Mercado MD Work Phone: Start: 12-24-2022 End: 12-24-2022 Adv care pln tlkd & alt dcsn maker docd Kirk Mercado MD Work Phone: Start: 12-24-2022 End: 12-24-2022 Depression screening Kirk Mercado MD Work Phone: Start: 12-24-2022 End: 12-24-2022 Falls risk assessment documented Kirk Mercado MD Work Phone: Start: 12-24-2022 End: 12-24-2022 Lab findings surveillance Joanne castro MUSIC SOUND LIGHT TECHNICIAN Start: 12-24-2022 End: 07-21-2023 Oncology colorectal screening joann 10 dna markrs Kirk Mercado MD Work Phone: Start: 12-24-2022 End: 12-24-2022 PPPS, subseq visit Kirk Mercado MD Work Phone: Start: 12-24-2022 End: 12-24-2022 Pt falls assess docd w/o fall/injury past year Kirk Mercado MD Work Phone: Start: 12-24-2022 End: 12-24-2022 Scr dep neg, no plan reqd Kirk Mercado MD Work Phone: Start: 12-24-2022 End: 12-24-2022 Joanne Bailey LP N Start: 12-24-2022 End: 12-24-2022 Joanne Bailey LP N Start: 08-25-2022 End: 08-25-2022 Arthrocentesis aspir&/inj interm jt/burs w/o us Kirk Mercado MD Work Phone: Start: 06-12-2022 US Unspecified body region Armond Mosquera MD Work Phone: Start: 03-19-2022 End: 03-20-2022 Radex hand minimum 3 views Kirk Mercado MD Work Phone: Start: 12-18-2021 End: 12-18-2021 Depression screening Kirk Mercado MD Work Phone: Start: 12-18-2021 End: 12-18-2021 Falls risk assessment documented Kirk Mercado MD Work Phone: Start: 12-18-2021 End: 12-18-2021 Initial preventive exam Kirk Mercado MD Work Phone: Start: 12-18-2021 End: 12-18-2021 Pt falls assess docd w/o fall/injury past year Kirk Mercado MD Work Phone: Start: 12-18-2021 End: 12-18-2021 Scr dep neg, no plan reqd Kirk Mercado MD Work Phone: Start: 12-18-2021 End: 12-18-2021 Screening test visual acuity quantitative bilat Kirk Mercado MD Work Phone: Start: 11-19-2020 End: 11-19-2021 Most recent hg a1c>equal to 8.0%& Kirk Mercado MD Work Phone: Start: 09-21-2020 End: 09-21-2020 Depression screening Kirk Mercado MD Work Phone: Start: 09-21-2020 End: 09-21-2020 Pt falls assess docd w/o fall/injury past year Kirk Mercado MD Work Phone: Start: 09-21-2020 End: 09-21-2020 Radex shoulder complete minimum 2 views Kirk Mercado MD Work Phone: Start: 09-21-2020 End: 09-21-2020 Scr dep neg, no plan reqd Kirk Mercado MD Work Phone: Start: 04-11-2020 End: 04-11-2020 Joanne Bailey LP N Start: 03-13-2020 End: 03-19-2020 Screening mammography bi 2-view breast inc cad Kirk Mercado MD Work Phone: Start: 10-24-2019 End: 10-24-2019 Esther King PIGMENT SUPPLIER Start: 10-19-2019 End: 10-19-2019 Joanne Bailey LP N Start: 08-09-2019 End: 08-09-2019 Depression screening Kirk Mercado MD Work Phone: Start: 08-09-2019 End: 08-09-2019 Falls risk assessment documented Kirk Mercado MD Work Phone: Start: 08-09-2019 End: 10-28-2019 Oncology colorectal screening joann 10 dna markrs Kirk Mercado MD Work Phone: Start: 08-09-2019 End: 08-09-2019 Pt falls assess docd w/o fall/injury past year Kirk Mercado MD Work Phone: Start: 08-09-2019 End: 08-09-2019 Scr dep neg, no plan reqd Kirk Mercado MD Work Phone: Start: 08-05-2019 End: 08-05-2019 Lore Montgomery LP N Start: 01-19-2019 End: 03-03-2019 Screening mammography bi 2-view breast inc cad Kirk Mercado MD Work Phone: Start: 09-28-2018 End: 09-28-2018 Examination of retina Joanne Bailey MUSIC SOUND LIGHT TECHNICIAN Start: 07-14-2018 End: 07-14-2018 Pos clin depres scrn f/u doc Kirk Mercado MD Work Phone: Start: 07-14-2018 End: 07-14-2018 Scr dep neg, no plan reqd Kirk Mercado MD Work Phone: Start: 07-14-2018 End: 07-15-2018 Depression screen annual Kirk Alexandra Work Phone: Start: 01-25-2018 End: 01-25-2018 Body mass index documented Kirk Mercado MD Work Phone: Start: 01-25-2018 End: 01-25-2018 Most recent diastolic blood pressure < 80 mm hg Kirk Mercado MD Work Phone: Start: 01-25-2018 End: 01-25-2018 Most recent systolic blood pres>/equal 140 mm hg Kirk Mercado MD Work Phone: Start: 01-25-2018 End: 02-12-2018 Screening mammography bi 2-view breast inc cad Kirk Mercado MD Work Phone: Start: 01-08-2018 End: 01-08-2018 Body mass index documented Kirk Mercado MD Work Phone: Start: 01-08-2018 End: 01-08-2018 Most recent diastolic blood pressure < 80 mm hg Kirk Mercado MD Work Phone: Start: 01-08-2018 End: 01-08-2018 Most recent hemoglobin a1c level gt 7.0-9.0 % Kirk Mercado MD Work Phone: Start: 01-08-2018 End: 01-08-2018 Most recent systolic blood pressure <130 mm hg Kirk Mercado MD Work Phone: Start: 12-11-2017 End: 12-11-2017 Body mass index documented Kirk Mercado MD Work Phone: Start: 12-11-2017 End: 12-11-2017 Most recent diastolic blood pressure < 80 mm hg Anna Green LPN Start: 12-11-2017 End: 12-11-2017 Most recent systolic blood pres>/equal 140 mm hg Kirk Mercado MD Work Phone: Start: 11-30-2017 End: 11-30-2017 Nadja Mckay RN Start: 01-26-2017 End: 02-10-2017 Mammogram, screening Kirk Mercado MD Work Phone: Start: 02-07-2016 End: 02-08-2016 Mammogram, screening Kirk Mercado MD Work Phone: Start: 01-15-2015 End: 02-06-2015 Mammogram, screening Kirk Mercado MD Work Phone: Start: 01-19-2014 End: 02-03-2014 Mammogram, screening Kirk Mercado MD Work Phone: Start: 02-23-2013 End: 03-02-2013 Mri spinal canal lumbar w/o contrast material Kirk Mercado MD Work Phone: Start: 01-24-2013 End: 02-01-2013 Mammogram, screening Kirk Mercado MD Work Phone: Start: 12-03-2012 End: 12-06-2012 Radex spine lumbosacral 2/3 views Kirk Mercado MD Work Phone: Start: 11-03-2012 End: 11-03-2012 Triamcinolone acet inj NOS Kirk Mercado MD Work Phone: Start: 01-09-2012 End: 02-11-2012 Mammogram, screening Kirk Mercado MD Work Phone: Start: 02-29-2008 End: 02-29-2008 Screening for malignant neoplasm of large intestine Lore Montgomery MUSIC SOUND LIGHT TECHNICIAN Start: 11-30-1976 End: 11-30-1976 Nadja Mckay RN Abdominal hysterectomy Laverne issa RN Joanne Disla [employer] TECHNICIAN Plan of Treatment Date Care Activity Detail Author Start: 12-26-2032 Tetanus vaccination TETANUS [facility] Start: 06-08-2024 End: 06-08-2024 Patient encounter procedure 06/08/2024 12:00 PM EDT Office Visit Division of Endocrinology [address] [place] [id number] Armond Mosquera MD [address] [id number] Division of Endocrinology Start: 04-19-2024 [facility] Start: 07-31-2023 Influenza vaccination INFLUENZA VACCINE (#1) [facility] Start: 06-17-2023 End: 06-17-2023 Patient encounter procedure 06/17/2023 Office Visit Endocrinology, Diabetes & Metabolism Armond Mosquera MD [address] [place] [address] Division of Endocrinology Start: 12-19-2022 Thyroid stimulating hormone measurement TSH [facility] Start: 11-13-2022 Hemoglobin glycosylated a1c [facility] [place] [facility] Start: 07-31-2022 Influenza vaccination INFLUENZA VACCINE (#1) [facility] Start: 03-14-2022 Screening mammography bi 2-view breast inc cad [place] [facility] [place] [facility] Start: 11-12-2021 Assay of thyroid stimulating hormone tsh [facility]; [place] [facility] Start: 10-19-2020 Screening for malignant neoplasm of colon COLORECTAL CANCER SCREENING DISCUSSION [facility] Start: 11-17-2019 Potassium [Moles/volume] in Serum or Plasma POTASSIUM [facility] Start: 2018 Pneumococcal vaccination PNEUMOCOCCAL VACCINE SERIES (1 - PCV) [facility] Start: 2003 Zoster vaccine hzv live for subcutaneous use ZOSTER (SHINGLES) VACCINE (1 of 2) [facility] Start: 1998 Colonoscopy COLORECTAL CANCER SCREENING DISCUSSION [facility] Start: 1993 Fasting lipid profile LIPID SCREENING [facility] Start: 1993 Lipid panel LIPID SCREENING [facility] Start: 1993 Screening for malignant neoplasm of breast MAMMOGRAM SCREENING DISCUSSION [facility] Start: 1993 Screening mammography MAMMOGRAM SCREENING DISCUSSION [facility] Start: 1974 Screening for malignant neoplasm of cervix CERVICAL CANCER SCREENING DISCUSSION [facility] Start: 1972 Third diphtheria, tetanus and acellular pertussis (DTaP) vaccination TDAP (ADULT) [facility] Start: 1971 Tetanus vaccination TETANUS [facility] Start: 03-07-1954 COVID-19 VACCINE (#1) COVID-19 VACCINE (#1) [facility] Start: 1953 Hepatitis C antibody, confirmatory test HEPATITIS C VIRUS SCREENING [facility] Start: 1953 Hepatitis C screening HEPATITIS C VIRUS SCREENING [facility] Start: 1955 Screening for osteoporosis DEXA SCAN DISCUSSION [facility] Us soft tissue head & neck real time imge docm [facility] US,HEAD/NECK TISSUES,REAL TIME NH - OFFICE PERFORMED IMAGING Routine Malignant neoplasm of thyroid gland Ordered: 06/12/2022 [facility] Immunizations Immunization Date Immunization Notes Care Provider Fa cility 08-30-2023 Seasonal, quadrivale nt, recombinant, injectable influenza vaccine, preservative free Kirk Mercado MD Work Phone: [employer] [facility] [employer]. 11-04-2022 influenza virus vacc ine, unspecified formulation Armond Mosquera MD Work Phone: [facility] 09-09-2021 influenza virus vacc ine, unspecified formulation Armond Mosquera MD Work Phone: [facility] 05-22-2021 Kirk Mercado MD Work Phone: [employer] 04-12-2021 Kirk Mercado MD Work Phone: [employer] 08-09-2019 diphtheria, tetanus toxoids and acellular pertussis vaccine, unspecified formulation Kirk Mercado MD Work Phone: [employer] 05-24-2019 Shingrix (PF) Kirk Mercado MD Work Phone: [employer] 05-24-2019 pneumococcal conjuga te vaccine, 13 valent Kirk Mercado MD Work Phone: [employer] 07-25-2013 pneumococcal Conjuga te, unspecified formulation Kirk Mercado MD Work Phone: [facility] [employer] [facility], [facility]. 07-25-2013 pneumococcal polysaccharide vaccine, 23 valent Kirk Mercado MD Work Phone: [facility], [facility]. Payers Date Payer Category Payer Medicare [id number] 2021 Medicare MEDICARE ANTHEM HMO OR PPO MEDICARE ANTHEM HMO OR PPO [id number] 2021-Present [address] [place] [address] [id number] 2021 Medicare [id number] 2017 Unknown 1953 Unknown [id number] 1953 Unknown [id number] 1953 Unknown [id number] 1953 Unknown [id number] 1953 Unknown [id number] 1953 Unknown [id number] 1953 Unknown [id number] 1953 Unknown [id number] 1953 Unknown [id number] 1953 Unknown [id number] 1953 Unknown [id number] Social History Date Type Detail Facility Start: 06-12-2022 Tobacco smoking stat us NHIS Ex-smoker [facility] Start: 06-17-1972 End: 11-30-1973 History of tobacco use Current smoker [facility] Start: 06-17-1972 End: 11-30-1973 History of tobacco use Cigarette Smoker [facility] Start: 06-12-2022 End: 06-17-2023 Cigarettes smoked current (pack per day) - Reported 0.5 [facility] Start: 06-12-2022 Tobacco use and exposure Smoke less tobacco non-user [facility] Start: 06-12-2022 End: 06-17-2023 Alcohol intake Ex-drinker (finding) [facility] Start: 12-19-2021 History SDOH Alcohol Comment quit drinking 08/2021 [facility] Start: 06-12-2022 Tobacco Comment less than 1 pack a d ay [facility] Start: 1955 Sex Assigned At Not on file [facility] Start: 06-17-2023 Tobacco use panel [facility] Adolescent depressio n screening assessment 0 [facility] Start: 08-20-2017 Gender identity Identifies as female gender (finding) [facility] Start: 12-11-2020 Sexual orientation Heterosexual (fin ding) [facility] Full-time. [facility] Former smoker. [facility] Medical Equipment Procedure Code Equipment Code Equipment Origin al Text Equipment Identifier Dates Mesh Patch Soft Tissue [id number] - [id number] Start: 11-17-2018 Goals Date Patient Goal Desired Activity /State Personal health goal History of Present illness Narrative 06-17-2023 Armond Mosquera MD - 06/17/2023 11:40 AM Tim Mosquera MD - 06/17/2023 11:40 AM EDT Note Date & Type Note Facility 06-17-2023 History of Present illness Narrative CC: Thyroid Disease follow up. HPI: Mary Brooks is a 67 y.o. female who presents for follow up of her thyroid disease. Patient first noticed globus sensation as well as increased throat secretions in January of 2017. She had been losing her voice intermittently which progressed and she was found to have left vocal cord paralysis. During evaluation thyroid nodule was found as below. 08/10/2017 Thyroid Ultrasound: Multinodular goiter, with the left side being predominantly involved. Larger dominant nodule in superior /midportion of the left lobe. 08/12/2017 Outside slides review, thyroid nodule FNA A. LEFT THYROID NODULE, FINE NEEDLE ASPIRATION: No Malignant Cells Are Identified. Benign Follicular Cells, Cyst Lining Cells, Pigment-Laden Macrophages And Colloid. 07/23/[address]: There is a left thyroid mass 11/17/2017: Left Lobectomy 2.1 x 1.9 x 1.7 cm Follicular Thyroid Carcinoma, Oncocytic Type, Minimally Invasive [H rthle Cell Carcinoma]. No vascular space invasion or perineural invasion was present. There was focally present capsular invasion. It was encapsulated with focal complete capsular penetration. Extrathyroidal extension was negative. Was also found to have multinodular hyperplasia & chronic lymphocytic thyroiditis. 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 Negative for LVI, PNI, or ETE. PTH: 15.1 03/17/2018: WATKINS, 31.1 mCi I-131 Post-therapy scan: Re-demonstration of radiotracer activity in the neck region, likely remnant thyroid tissue. No definite new suspicious foci to suggest metastatic disease. 09/09/2018: Neck US without suspicious lesions or nodes. 10/2018: Bilateral type 1 thyroplasty w/ Acra-Obdulio Implantation (Dr. White) 12/07/2019: Neck US without suspicious lesions or nodes. 04/17/2020: Chest CT: 1. Trace pericardial effusion. 2. Status post thyroidectomy. There is no evidence of recurrent mass or adenopathy in the region. 3. Numerous low-attenuation subcentimeter foci scattered throughout the liver indeterminate for solid versus cystic process. Metastatic disease should be considered. 05/08/2020 ABD MRI: Multiple small hepatic lesions compatible with cysts. Mild splenomegaly. Splenomegaly was present on US abdomen in 2018 ([facility] Everywhere). 12/12/2020 Neck US (in office): No suspicious lesions or nodes. Labs Date TSH Tg TgAbs 12/30/2017 2.285 3.5 16.8 02/11/2018 0.709 0.1 21.4 03/15/2018 0.102 <0.1 21.4 03/17/2018 >150.000 0.4 18.7 (WATKINS) 09/09/2018 0.878 0.1 9.8 12/14/2018 0.9 03/02/2019 0.42 <0.1 7.3 12/07/2019 0.487 0.1 10.9 03/12/2020 1.04 <0.2 12.3 06/27/2020 0.58 <0.2 10.1 09/18/2020 0.98 12/12/2020 0.067 <0.1 6.6 06/04/2021 0.21 9.2 12/09/2021 0.6 <0.2 7.7 (different assay, [facility]). 05/2022 0.03 <0.2 7.7 (same assay as in Nov 2021, [facility]) 05/2023 0.4 <0.1 1.6 (Adrien) She is generally feeling well. Her significant other had health issues and she had been assisting in care. She has noticed weight gain. She does not complain of anterior neck pain, stable voice, no difficulty swallowing. She denies chest pain, shortness of breath, tachycardia or palpitations. She is taking Her thyroid medicine consistently and correctly. Left shoulder surgery in May 2021 still feeling well. She has some tendinitis in right should area. Quit alcohol in Aug 2021. She has not restarted since last visit Medicine: L-T4 137 mcg at 6.5 tabs a week. FH: Younger sister had hx of thyroid disease, not cancer (correction of last notes). Niece: thyroid cancer. Mother has possible hypothyroidism Patient denied any prior hx of radiation to head, neck or chest Past Medical History: Diagnosis Date Arthritis 1995 osteo Diabetes mellitus Diverticulitis 2017 Essential hypertension, benign H/O radioactive iodine thyroid ablation 03/17/2018 H/O vocal cord paralysis Hyperlipidemia Personal history of COVID-19 05/2020 Post-surgical hypothyroidism Thyroid cancer Past Surgical History: Procedure Laterality Date ROTATOR CUFF REPAIR Left 05/08/2021 LARYNGOPLASTY (GORTEX MEDIALIZATION) Bilateral 11/17/2018 Laterality: Bilateral; Surgeon: Lore White MD; Location: [facility] OR LARYNGOSCOPY FLEXIBLE DIAGNOSTIC Midline 11/17/2018 Laterality: Midline; Surgeon: Lore White MD; Location: [facility] OR THYROIDECTOMY TOTAL Right 01/14/2018 Laterality: Right; Surgeon: Eber Wadsworth MD; [facility] THYROIDECTOMY SUBTOTAL Left 11/17/2017 Laterality: Left; Surgeon: Eber Wadsworth MD; [facility] THYROIDECTOMY TOTAL N/A 11/17/2017 Laterality: N/A; Surgeon: Eber Wadsworth MD; Location: [facility] MAIN OR ANKLE SURGERY HAND SURGERY KNEE REPLACEMENT Bilateral Partial left, complete right PARTIAL HYSTERECTOMY Social History Tobacco Use Smoking status: Former Packs/day: 0.50 Years: 2.00 Total pack years: 1.00 Types: Cigarettes Start date: 06/17/1972 Quit date: 11/30/1973 Years since quittin.5 Smokeless tobacco: Never Tobacco comments: less than 1 pack a day Substance Use Topics Alcohol use: Not Currently Comment: quit drinking 08/2021 Drug use: Never Family History Problem Relation Age of Onset Other - Specify Mother thyroid disease Aneurysm Mother Lee aneurysm Breast Cancer Mother Diabetes Mother Hypertension Mother Thyroid Cancer Niece Aneurysm Father stomach Heart Failure Father Leaking valve Diabetes Maternal Grandmother Type 2 insulin Stroke Maternal Grandmother left side Aneurysm Sister Cerebral hemorrhage 2020 Cancer- Other Sister melanoma Diabetes Sister Type 2 insulin Heart Disease - Other Sister atrial fib not heart valve related Hypertension Sister Breast Cancer Maternal Aunt Uterine Cancer Sister spread to uterus Cancer- Other Sister cervical Diabetes Sister end stage renal Coronary Artery Disease Sister congestive heart Cancer- Other Sister squamous cell on arm Stroke Sister right eye 2016 and left side 2013 Diabetes Maternal Uncle Medications: Reviewed. Review of Systems: Relevant review as in HPI Physical Exam BP 152/72 (BP Location: Right arm, BP Position: Sitting) Pulse 65 Temp 97.9 F (36.6 C) (Infrared) Resp 18 Ht 1.613 m (5' 3.5 ) Wt 91.9 kg (202 lb 9.6 oz) SpO2 97% BMI 35.33 kg/m Smoking Status Former Constitutional: Alert in no acute distress. Head: Head symmetric and normocephalic. No evidence of trauma. No deformity. Eyes: Extraocular movement intact. Neck: Full ROM. No evidence of lymphadenopathy. Lungs/Thorax: Lung sounds are clear and equal to auscultation through all magallanes Cardiovascular: Regular rate and rhythm. S1 and S2 are present and normal. No edema of the lower extremities. Assessment/Plan: Thyroid Cancer: I discussed with patient diagnosis in details including potential residual/recurrent disease in cervical nodes and distant mets. She is s/p left lobectomy Oct 2017 showing 2.1 cm HCTC without or ETE then completion thyroidectomy Dec 2017 showing 0.4 cm PTC. She is then s/p 31 mCi February 2018 with uptake in thyroid bed. Negative neck ultrasound May 2022. Negative CT chest for mets in March 2020. Negative abdominal imaging in 2019 for mets. Indeterminate response biochemically given Tg Abs. Will follow on trend. Will plan another US in 1 year given indeterminate response. Hypothyroidism: Continue same dose of thyroid hormone. RTC in 1 year error documented in this encounter [facility] Instructions 06-17-2023 Patient Instructions Note Date & Type Note Facility 06-17-2023 Instructions Ani Dodd RN - 06/17/2023 11:40 AM EDT Labs in 1 year. RTC after that documented in this encounter [facility] Instructions 06-12-2022 Patient Instructions Note Date & Type Note Facility 06-12-2022 Instructions Armond Mosquera MD - 06/12/2022 11:38 AM EDT Labs in 6 week (TSH and FT4) outside, entered. Labs in 1 year (TSH, FT4 and Tg) outside, entered RTC in 1 year 1 week after the labs in 1 year documented in this encounter [facility] History of Present illness Narrative 06-12-2022 Armond Mosquera MD - 06/12/2022 11:20 AM EDTFradha Mosquera MD - 06/12/2022 11:20 AM EDT Note Date & Type Note Facility 06-12-2022 History of Present illness Narrative CC: Thyroid Disease follow up. HPI: Mary Brooks is a 66 y.o. female who presents for follow up of her thyroid disease. Patient first noticed globus sensation as well as increased throat secretions in January of 2017. She had been losing her voice intermittently which progressed and she was found to have left vocal cord paralysis. During evaluation thyroid nodule was found as below. 08/10/2017 Thyroid Ultrasound: Multinodular goiter, with the left side being predominantly involved. Larger dominant nodule in superior /midportion of the left lobe. 08/12/2017 Outside slides review, thyroid nodule FNA A. LEFT THYROID NODULE, FINE NEEDLE ASPIRATION: No Malignant Cells Are Identified. Benign Follicular Cells, Cyst Lining Cells, Pigment-Laden Macrophages And Colloid. 07/23/[address]: There is a left thyroid mass 11/17/2017: Left Lobectomy 2.1 x 1.9 x 1.7 cm Follicular Thyroid Carcinoma, Oncocytic Type, Minimally Invasive [H rthle Cell Carcinoma]. No vascular space invasion or perineural invasion was present. There was focally present capsular invasion. It was encapsulated with focal complete capsular penetration. Extrathyroidal extension was negative. Was also found to have multinodular hyperplasia & chronic lymphocytic thyroiditis. 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 Negative for LVI, PNI, or ETE. PTH: 15.1 03/17/2018: WATKINS, 31.1 mCi I-131 Post-therapy scan: Re-demonstration of radiotracer activity in the neck region, likely remnant thyroid tissue. No definite new suspicious foci to suggest metastatic disease. 09/09/2018: Neck US without suspicious lesions or nodes. 10/2018: Bilateral type 1 thyroplasty w/ Acra-Obdulio Implantation (Dr. White) 12/07/2019: Neck US without suspicious lesions or nodes. 04/17/2020: Chest CT: 1. Trace pericardial effusion. 2. Status post thyroidectomy. There is no evidence of recurrent mass or adenopathy in the region. 3. Numerous low-attenuation subcentimeter foci scattered throughout the liver indeterminate for solid versus cystic process. Metastatic disease should be considered. 05/08/2020 ABD MRI: Multiple small hepatic lesions compatible with cysts. Mild splenomegaly. Splenomegaly was present on US abdomen in 2018 ([facility] Every[facility]). 12/12/2020 Neck US (in office): No suspicious lesions or nodes. Labs Date TSH Tg TgAbs 12/30/2017 2.285 3.5 16.8 02/11/2018 0.709 0.1 21.4 03/15/2018 0.102 <0.1 21.4 03/17/2018 >150.000 0.4 18.7 (W[facility]KINS) 09/09/2018 0.878 0.1 9.8 12/14/2018 0.9 03/02/2019 0.42 <0.1 7.3 12/07/2019 0.487 0.1 10.9 03/12/2020 1.04 <0.2 12.3 06/27/2020 0.58 <0.2 10.1 09/18/2020 0.98 12/12/2020 0.067 <0.1 6.6 06/04/2021 0.21 9.2 12/09/2021 0.6 <0.2 7.7 (different assay, [facility]). 05/2022 0.03 <0.2 7.7 (same assay as in Nov 2021, [facility]) She is generally feeling well. Main symptom is insomnia. She does not complain of anterior neck pain, stable voice, no difficulty swallowing. She denies chest pain, shortness of breath, tachycardia or palpitations. She is taking Her thyroid medicine consistently and correctly. Left shoulder surgery in May 2021 still feeling well. Quit alcohol in Aug 2021. She has not restarted since last visit Medicine: L-T4 150 mcg, 7 tablets/week FH: Younger sister had hx of thyroid cancer. Mother has possible hypothyroidism Patient denied any prior hx of radiation to head, neck or chest Past Medical History: Diagnosis Date Diabetes mellitus Diverticulitis 2017 Essential hypertension, benign H/O radioactive iodine thyroid ablation 03/17/2018 H/O vocal cord paralysis Hyperlipidemia Personal history of covid-19 05/2020 Post-surgical hypothyroidism Thyroid cancer Past Surgical History: Procedure Laterality Date ROTATOR CUFF REPAIR Left 05/08/2021 LARYNGOPLASTY ([facility]ORTEX MEDIALIZATION) Bilateral 11/17/2018 Laterality: Bilateral; Surgeon: Lore White MD; Location: [facility] OR LARYNGOSCOPY FLEXIBLE DIAGNOSTIC Midline 11/17/2018 Laterality: Midline; Surgeon: Lore White MD; Location: [facility] OR THYROIDECTOMY TOTAL Right 01/14/2018 Laterality: Right; Surgeon: Eber Wadsworth MD; [facility] THYROIDECTOMY SUBTOTAL Left 11/17/2017 Laterality: Left; Surgeon: Eber Wadsworth MD; [facility] THYROIDECTOMY TOTAL N/A 11/17/2017 Laterality: N/A; Surgeon: Eber Wadsworth MD; Location: [facility] MAIN OR ANKLE SURGERY HAND SURGERY KNEE REPLACEMENT Bilateral Partial left, complete right PARTIAL HYSTERECTOMY Social History Tobacco Use Smoking status: Former Smoker Packs/day: 0.50 Years: 2.00 Pack years: 1.00 Types: Cigarettes Quit date: 11/30/1973 Years since quittin.5 Smokeless tobacco: Never Used Substance Use Topics Alcohol use: Not Currently Alcohol/week: 7.0 standard drinks Types: 7 Cans of beer per week Comment: quit drinking 08/2021 Drug use: No Family History Problem Relation Age of Onset Other - Specify Mother thyroid disease Thyroid Cancer Niece Medications: Reviewed. Review of Systems: Relevant review as in HPI Physical Exam BP 137/61 (BP Location: Right arm, BP Position: Sitting) Pulse 67 Temp 98.1 F (36.7 C) (Oral) Resp 18 Ht 1.613 m (5' 3.5 ) Wt 90 kg (198 lb 8 oz) SpO2 96% BMI 34.61 kg/m Smoking Status Former Smoker Constitutional: Alert in no acute distress. Head: Head symmetric and normocephalic. No evidence of trauma. No deformity. Eyes: Extraocular movement intact. Neck: Full ROM. No evidence of lymphadenopathy. Lungs/Thorax: Lung sounds are clear and equal to auscultation through all magallanes Cardiovascular: Regular rate and rhythm. S1 and S2 are present and normal. No edema of the lower extremities. Assessment/Plan: Thyroid Cancer: I discussed with patient diagnosis in details including potential residual/recurrent disease in cervical nodes and distant mets. She is s/p left lobectomy Oct 2017 showing 2.1 cm HTC without or ETE then completion thyroidectomy Dec 2017 showing 0.4 cm PTC. She is then s/p 31 mCi February 2018 with uptake in thyroid bed. Negative neck ultrasound at last clinic visit (11/2020). Negative CT chest for mets in March 2020. Negative abdominal imaging in 2019 for mets. Indeterminate response biochemically given Tg Abs. Stable over last 6 months. Repeat Tg again here as Tg Abs were done at different assay in the recent outside labs. Negative neck US today. Will plan another US in 2-3 years if Tg Abs still present of sooner depending on symptoms or trend of Tg/Tg Abs Hypothyroidism: Reduce the dose to 137 mcg a day. Repeat TSH and FT4 in 6 weeks. RTC in 1 year ULTRASOUND NOTE Images were taken through the central and lateral neck bilaterally. RIGHT CENTRAL: No suspicious lesions RIGHT LATERAL: No suspicious nodes LEFT CENTRAL: No suspicious lesions LEFT LATERAL: No suspicious nodes documented in this encounter [facility] Evaluation note Note Date & Type Note Facility documented in this encounter [facility] Evaluation note Note Date & Type Note Facility documented in this encounter [facility] Summary Purpose Family History No Family History Records Found Atrial Fibrillation Status:Active Comments:Sis ter. Cancer Status:Active Comments:Sister. sister uterine and melanoma, father colon cancer, Aunt-Esophagus, Uncle-stomach, mother-skin Cerebrovascular Accident Status:Active Comment s:Sister. grandmother Coronary Artery Disease Status:Active Comments :Mother. Sister. Diabetes Mellitus Type I Status:Active Comment s:Mother. Sister. grandmother Hypertension Status:Active Comments:Mother. Sister. Hypothyroidism Status:Active Comments:Mother. Sister. Lupus Erythematosus, Systemic Status:Active Co mments:Sister. Osteoarthritis Status:Active Comments:Mother. Sisters Atrial Fibrillation Status:Active Comments:Sis ter. Cancer Status:Active Comments:Sister. sister uterine and melanoma, father colon cancer, Aunt-Esophagus, Uncle-stomach, mother-skin Cerebrovascular Accident Status:Active Comment s:Sister. grandmother Coronary Artery Disease Status:Active Comments :Mother. Sister. Diabetes Mellitus Type I Status:Active Comment s:Mother. Sister. grandmother Hypertension Status:Active Comments:Mother. Sister. Hypothyroidism Status:Active Comments:Mother. Sister. Lupus Erythematosus, Systemic Status:Active Co mments:Sister. Osteoarthritis Status:Active Comments:Mother. Sisters Atrial Fibrillation Status:Active Comments:Sis ter. Cancer Status:Active Comments:Sister. sister uterine and melanoma, father colon cancer, Aunt-Esophagus, Uncle-stomach, mother-skin Cerebrovascular Accident Status:Active Comment s:Sister. grandmother Coronary Artery Disease Status:Active Comments :Mother. Sister. Diabetes Mellitus Type I Status:Active Comment s:Mother. Sister. grandmother Hypertension Status:Active Comments:Mother. Sister. Hypothyroidism Status:Active Comments:Mother. Sister. Lupus Erythematosus, Systemic Status:Active Co mments:Sister. Osteoarthritis Status:Active Comments:Mother. Sisters Atrial Fibrillation Status:Active Comments:Sis ter. Cancer Status:Active Comments:Sister. sister uterine and melanoma, father colon cancer, Aunt-Esophagus, Uncle-stomach, mother-skin Cerebrovascular Accident Status:Active Comment s:Sister. grandmother Coronary Artery Disease Status:Active Comments :Mother. Sister. Diabetes Mellitus Type I Status:Active Comment s:Mother. Sister. grandmother Hypertension Status:Active Comments:Mother. Sister. Hypothyroidism Status:Active Comments:Mother. Sister. Lupus Erythematosus, Systemic Status:Active Co mments:Sister. Osteoarthritis Status:Active Comments:Mother. Sisters Atrial Fibrillation Status:Active Comments:Sis ter. Cancer Status:Active Comments:Sister. sister uterine and melanoma, father colon cancer, Aunt-Esophagus, Uncle-stomach, mother-skin Cerebrovascular Accident Status:Active Comment s:Sister. grandmother Coronary Artery Disease Status:Active Comments :Mother. Sister. Diabetes Mellitus Type I Status:Active Comment s:Mother. Sister. grandmother Hypertension Status:Active Comments:Mother. Sister. Hypothyroidism Status:Active Comments:Mother. Sister. Lupus Erythematosus, Systemic Status:Active Co mments:Sister. Osteoarthritis Status:Active Comments:Mother. Sisters Atrial Fibrillation Status:Active Comments:Sis ter. Cancer Status:Active Comments:Sister. sister uterine and melanoma, father colon cancer, Aunt-Esophagus, Uncle-stomach, mother-skin Cerebrovascular Accident Status:Active Comment s:Sister. grandmother Coronary Artery Disease Status:Active Comments :Mother. Sister. Diabetes Mellitus Type I Status:Active Comment s:Mother. Sister. grandmother Hypertension Status:Active Comments:Mother. Sister. Hypothyroidism Status:Active Comments:Mother. Sister. Lupus Erythematosus, Systemic Status:Active Co mments:Sister. Osteoarthritis Status:Active Comments:Mother. Sisters Advance Directives No Advanced Directives Records FoundDocuments on File Type Date Recorded Patient Draw In Hand Expl anation HealthCare Power of Senior Software Engineering Manager 12/18/2016 Advance Directives/Living Will 12/18/2016 Latest Code Status on File Code Status Date Activated Date Inactivated Comments Full Code 11/17/2018 7:35 AM Full Code 01/14/2018 6:10 PM 11/17/2018 7:35 AM Full Code 01/14/2018 9:22 AM 01/14/2018 6:10 PM Full Code 11/17/2017 12:15 PM 11/18/2017 12:13 PM Full Code 11/17/2017 6:20 AM 11/17/2017 12:15 PM Documents on File Type Date Recorded Patient Draw In Hand Expl anation HealthCare Power of Senior Software Engineering Manager 12/18/2016 Advance Directives/Living Will 12/18/2016 Latest Code Status on File Code Status Date Activated Date Inactivated Comments Full Code 11/17/2018 7:35 AM Code Status History Code Status Date Activated Date Inactivated Comments Full Code 01/14/2018 6:10 PM 11/17/2018 7:35 AM Full Code 01/14/2018 9:22 AM 01/14/2018 6:10 PM Full Code 11/17/2017 12:15 PM 11/18/2017 12:13 PM Full Code 11/17/2017 6:20 AM 11/17/2017 12:15 PM Reason for Referral Specialty Diagnoses / Procedures Referred By Sami cheung Referred To Contact Diagnoses Malignant neoplasm of thyroid gland Procedures [facility] Armond Mosquera MD [address] [facility] [address] [place] [address] Referral ID Status Reason Start Date Expiration Date V isits Requested Visits Authorized [id number] New Request 06/12/2022 07/07/2023 1 1 Additional Source Comments INFORMATION SOURCE (unrecogn ized section and content) DATE CREATED AUTHOR AUTHOR'S ORGANIZ ATION 12/12/2021 [facility] DATE CREATED AUTHOR AUTHOR'S ORGANIZ ATION 08/07/2022 [facility] DATE CREATED AUTHOR AUTHOR'S ORGANIZ ATION 06/11/2023 [facility] DATE CREATED AUTHOR AUTHOR'S ORGANIZ ATION 10/07/2023 [facility] DATE CREATED AUTHOR AUTHOR'S ORGANIZ ATION 12/23/2023 [facility] Reason for Visit (unrecogniz ed section and content) Reason Comments Follow-up Routine follow-up wi th mild weight gain. No other concerns noted today. Care Teams (unrecognized sec tion and content) Burrer Operator Relationship Specialty Start Date End Date Kirk Mercado MD [address] [place] [address] [place] [phone] PCP - General Family Medicine 08/25/17 Osmar Walker MD [address] [place] [id number] Otolaryngology 11/03/17 Chuck Suarez MD [address] [place] [address] Hematology 02/15/18 FOR RECORDS PERTAINING TO PATIENTS WHO ARE OR HAVE BEEN ENROLLED IN A CHEMICAL DEPENDENCY/SUBSTANCEABUSE PROGRAM, SOME INFORMATION MAY BE OMITTED. This clinical summary was aggregated from multiple sources. Caution should be exercised in using it in the provision of clinical care. This summary normalizes information from multiple sources, and as a consequence, information in this document may materially change the coding, format and clinical context of patient data. In addition, data may be omitted in some cases. CLINICAL DECISIONS SHOULD BE BASED ON THE PRIMARY CLINICAL RECORDS. [facility] [employer] [facility]. provides no warranty or guarantee of the accuracy or completeness of information in this document.
[2023-12-30] MEDS: Potassium Chloride Oral Tablet 20 MEQ 40 MEQ PO (17:44)
[2023-12-30] MEDS: APIXABAN 5 MG TABLET PO (17:44)
[2023-12-30] MEDS: dilTIAZem 25 MG/5 ML Vial 15 MG IV BOLUS (18:12)
--- NOTE | 2023-12-30 19:32 | HP.PCM.HOS_ITS ---
HPI - General General Date of Admission: 12/30/23 Date of Service: 12/30/23 Chief Complaint: Irregular heart beat post surgery HPI Narrative HUGO SANDERS, is a 68-year-old female history of diabetes, hypertension, hypothyroidism presented to [facility] 12/30/2023 due to A-fib. She had an elective right rotator cuff surgery with Dr. Turner today and after surgery was completed she went into A-fib with RVR, received IV Lopressor and IV Cardizem and was sent to the ED. She is on metoprolol tartrate 500 mg twice daily at home and did take her medicine this a.m. In the ED patient's heart rate initially improved with an additional dose of metoprolol tartrate and cardiology contacted who recommended discharge home with outpatient follow-up and Eliquis if patient stable, patient surgeon agreed to Eliquis however patient's heart rate went back up again when she was ambulated heart rate went to 140s, required another dose of IV Cardizem 15 mg and patient was symptomatic with elevated heart rate so hospitalist contacted for admission. In the ED patient reports that prior to surgery she had been in her usual health, said occasionally she will feel a fluttering sensation in her chest but has a history of mitral valve prolapse and is been told in the past that was the cause, has not felt a sensation like she did when she went into A-fib with fast heart rate. Still occasionally feeling flutters but reports she had the most problems when she got up to walk and felt short of breath and can tell her heart beat was fast and irregular, feeling better now that she is laying back down and had Cardizem. [place] down denies any shortness of breath, no swelling in lower extremities, denies any other complaints. [facility] Medical History HTN (hypertension) Hx of thyroid cancer Home Medications atorvastatin 20 mg tablet 20 mg PO QHS high cholesterol 11/03/22 [History Last Taken Unknown] insulin NPH isoph U-100 human 100 unit/mL (3 mL) subcutaneous pen (Humulin N NPH U-100 Insulin KwikPen) 20 unit subcut DINNER diabetes 11/03/22 [History Last Taken 12/29/23] levothyroxine 137 mcg tablet 68.5 mcg PO SOLIS THYROID 11/03/22 [History Last Taken 12/27/23] losartan 50 mg tablet 50 mg PO DAILY blood pressure 11/03/22 [History Last Taken 12/30/23] metoprolol tartrate 50 mg tablet 50 mg PO BID blood pressure 11/03/22 [History Last Taken 12/30/23] cetirizine 10 mg capsule (All Day Allergy (cetirizine)) 10 mg PO DAILY PRN allergies 12/30/23 [History Last Taken 12/26/23] glucosamine-chondroitin 500 mg-400 mg tablet 1 tab PO DAILY supplement 12/30/23 [History Last Taken 12/16/23] glyburide 5 mg tablet 5 mg PO DAILY 12/30/23 [History Last Taken 12/29/23] hydrochlorothiazide 25 mg tablet 25 mg PO DAILY BLOOD PRESSURE 12/30/23 [History Last Taken 12/29/23] levothyroxine 137 mcg capsule 137 mcg PO MOTUWETHFRSA THYROID 12/30/23 [History Last Taken 12/30/23] multivitamin (Daily Multi-Vitamin tablet) 1 tab PO DAILY supplement 12/30/23 [History Last Taken 12/16/23] oxycodone 5 mg tablet 5 - 10 mg PO Q6H PRN rotator cuff surgery pain 12/30/23 [History Last Taken Unknown] Allergy/AdvReac Type Severity Reaction Status Date / Time sulfite Allergy Anaphylaxis Verified 11/03/22 08:34 Family History (Updated 11/03/22 @ 12:[address] Vignesh Gates MD) Other CVA (cerebral vascular accident) Heart disease Surgical History (Updated 11/03/22 @ 12:[address] Vignesh Gates MD) History of thyroidectomy Social History Smoking Status: Never smoker ROS ROS Narrative General: Denies fever/chills HENT: Denies headache, denies stuffy nose, denies sore throat EYES: Denies changes in vision Resp: Denies cough, had some shortness of breath on exertion earlier Cardiac: Denies chest pain but does note fluttering in her chest GI: Denies abdominal pain, denies changes in bowel, denies nausea/vomiting : Denies changes in urination Extremity: Denies swelling MSK: Has some pain in left shoulder Neuro: Denies any numbness/tingling Heme: Denies any bleeding or bruising Skin: Denies rashes Psychiatric: No complaints voiced Vital Signs Vital Signs Vital Signs: 12/30/23 15:53 12/30/23 17:40 12/30/23 17:49 Temperature 97.9 F Temperature Source Oral Pulse Rate 109 H 130 H 125 H Respiratory Rate 16 16 Blood Pressure 152/74 H 148/70 H Blood Pressure Mean 100 96 Pulse Ox 93 93 Oxygen Delivery Method Room Air Room Air 12/30/23 18:18 Temperature Temperature Source Pulse Rate 90 Respiratory Rate Blood Pressure Blood Pressure Mean Pulse Ox Oxygen Delivery Method Weight Weight: 99.4 kg Body Mass Index (BMI) 37.6 Physical Exam Narrative General: Alert, oriented, no apparent distress HEENT: Atraumatic, normocephalic Eyes: Anicteric, normal conjunctiva, extraocular movements grossly intact Neck: Supple Respiratory: Clear to auscultation bilaterally, normal respiratory effort Cardiovascular: irregularly irregular, not presently tachycardic GI: Soft, nontender, nondistended Extremities: No edema Musculoskeletal: Moving all extremities aside from right upper extremity which is presently in sling Neuro: No overt focal neurological deficits Skin: No rashes appreciated Psych: Cooperative Results Lab / Micro Data 12/30/23 16:14 12/30/23 16:14 Labs: Laboratory Results - last 24 hr 12/30/23 16:14: WBC 4.6, RBC 3.90 L, Hgb 11.7 L, Hct 35.8 L, MCV 91.8, MCH 30.0, MCHC 32.7, RDW Std Deviation 40.4, RDW Coeff of [place] 12.1, Plt Count 74 L, MPV 11.7, Immature Gran % (Auto) 0.700, Neut % (Auto) 91.8 H, Lymph % (Auto) 6.6 L, [place] % (Auto) 0.7, Eos % (Auto) 0.0, Baso % (Auto) 0.2, Absolute Neuts (auto) 4.2, Absolute Lymphs (auto) 0.30 L, Nucleated RBC % 0, Differential Comment SCANNED, Sodium 134 L, Potassium 3.2 L, Chloride 108 H, Carbon Dioxide 20.0 L, Anion Gap 6, BUN 23 H, Creatinine 0.86, Estim Creat Clear Calc 69.74, Est GFR (MDRD) Af Amer 84, Est GFR (MDRD) Non-Af 70, BUN/Creatinine Ratio 26.8 H, Glucose 219 H, Calcium 7.3 L, Magnesium 2.0, TSH 1.54 Assessment & Plan Assessment/Plan (1) Paroxysmal atrial fibrillation with RVR: (2) Diabetes mellitus, type 2: (3) Hypothyroid: (4) Thrombocytopenia: PLAN: Plan # A-fib with RVR -New onset, noted post op -Elevated [id number] -Admit to telemetry -Continue Eliquis -Will increase patient's metoprolol and if necessary can start patient on drip if pt goes back into rvr -TSH within normal limits -Also order echo # Right shoulder surgery -With Dr. Turner -Postop day 0 -Scheduled Tylenol -Pain control # Hypokalemia -Will replace -Holding hydrochlorothiazide #Type 2 diabetes mellitus -Glucose checks and sliding scale insulin -Continue home insulin and hold home oral hypoglycemic #Hypothyroidism after thyroid cancer surgery -Continue Synthroid #Thrombocytopenia -Appears to be chronic, unclear underlying etiology -Check again in the a.m., if remains less than 100 or if continues to drop may need to reevaluate anticoagulation -May need further workup and evaluation on outpatient basis #DVT ppx: Farhana Curry MD Charges/Coding Visit Charges Inpatient E&M: 85589 Init Hosp L2
--- OUTSIDE RECORDS SUMMARY | 2023-12-30 19:44 | XMS RPT_ITS | CCD ---
Author Name Unknown Address [id number] [place] [address] Organization [facility] Care Team Providers Care Vault Cashier Name Role Phone Osmar Walker Unavailable Unavailable [...] Mercado MD Unavailable Dr. Jaycob Spencer Unavailable [facility], . Unavailable Dr. Bryn Solano MD Unavailable [facility] Unavailable [facility], . Ml office Unavailable [facility] Unavailable [phone] Dr. Chuck Suarez MD Unavailable Amie BOOTH, Yarelis Unavailable Unavailable Sasha NEEDLE CONTROL CHENILLER, Brenda Unavailable Faulkner PA-C, Nora J Unavailable Peter NEEDLE CONTROL CHENILLER, Anna E Unavailable Unavailable Cameron HARDIN, Marjorie Unavailable Unavailable Hudson NEEDLE CONTROL CHENILLER, Margo Unavailable Unavailable Joseph BERNAL, Morteza Fernandez Unavailable Pelon LIVE-C, Luke E Unavailable Pelon RN, Talita Moody Unavailable Unavail able Umberto NEEDLE CONTROL CHENILLER, Milady Unavailable Unavailable Nely BOOTH, Nadja Fernandez Unavailable Unavaila ble Mutersbaugh NEEDLE CONTROL CHENILLER, Shraddha K Unavailable Unavai labanu Washington PA-C, Maria M J Unavailable Christine PACKER DENTURE, Esther Unavailable Unavailable Valentina NEEDLE CONTROL CHENILLER, Lore M Unavailable Unavailab anu Bailey LPN, Joanne Aguilar Unavailable Unavailab anu Sanchez MD, Imtiaz Fernandez Unavailable Jennifer Cole Unavailable Unavailable Lacey NEEDLE CONTROL CHENILLER, Mary Unavailable Unavailabl e Unavailable Unavailable ED [...] to adverse reactions to drug 8 Swelling [facility] (2 sources) Sulfonamides (Antibiotic) Propensity to adverse reactions to drug 7 Shortness of Breath [facility] (6 sources) Lisinopril Drug Allergy [facility]. (6 sources) Penicillin V Drug Allergy [facility].; [facility]. (1 source) [facility].; [facility]. (1 source) [facility].; [facility]. (1 source) [facility].; [facility]. (1 source) [facility].; [facility], [employer]. (1 source) [facility].; [facility]. (1 source) [facility].; [facility]. Medications Current Medications Medication Drug Class(es) Dates [...] aftercare (20 sources) Drug indicated; Translations: [Other half-way (current) drug therapy] 03-19-2022 Episodic Other aftercare [...] Body height 163.83 cm Joanne Bailey LPN [facility], [facility], [employer]. 11-16-2023 15:40-0500 Body mass index (BMI) [Ratio] 34.64 kg/m2 MelizaLauren Bailey NEEDLE CONTROL CHENILLER [facility], [facility].; [employer], Inc[facility] 11-16-2023 15:40-0500 Body surface area Derived from formula 1.99 m2 [facility] NEEDLE CONTROL CHENILLER [employer] [facility], [facility].; [employer], [employer]. 11-16-2023 15:40-0500 Body weight 92.99 kg Joanne Bailey NEEDLE CONTROL CHENILLER [employer] [facility], Inc.; [employer], Inc. 11-16-2023 15:40-0500 Diastolic blood pressure 75 mm[Hg] MelizaLauren Bailey NEEDLE CONTROL CHENILLER [employer] [facility], [facility].; [employer], [employer]. 11-16-2023 15:40-0500 Heart rate 72 /min [facility] Leo NEEDLE CONTROL CHENILLER [employer] [facility], [facility].; [employer], [employer]. 11-16-2023 15:40-0500 Systolic blood pressure 131 mm[Hg] MelizaLauren Bailey NEEDLE CONTROL CHENILLER [employer] [facility], [facility].; [employer], Inc. 10-23-2023 09:28-0500 Body height 163.83 cm Marjorie Barnes MA [employer] [facility], [employer].; [employer], [employer]. 10-23-2023 09:28-0500 Body mass index (BMI) [Ratio] 34.64 kg/m2 Marjorie Barnes MA [facility] [employer], Inc[employer] 10-23-2023 09:28-0500 Body surface area Derived from formula 1.99 m2 Marjorie Cameron HARDIN [facility] [employer], Inc[employer] 10-23-2023 09:28-0500 Body weight 92.99 kg Marjorie Cameron HARDIN [employer] [facility], [facility].; [employer], Inc[employer] 10-23-2023 09:28-0500 Diastolic blood pressure 81 mm[Hg] Marjorie Barnes MA [facility] [employer], Inc[employer] 10-23-2023 09:28-0500 Heart rate 71 /min Marjorie Barnes MA [facility], [facility] [employer], [employer] 10-23-2023 09:28-0500 Systolic blood pressure 150 mm[Hg] Marjorie Barnes MA [facility] [employer], [employer] 10-20-2023 09:14-0500 Body height 163.83 cm MelizaLauren Bailey LPN [employer] [facility], [facility].; [employer], Inc[employer] 10-20-2023 09:14-0500 Body mass index (BMI) [Ratio] 34.31 kg/m2 Joanne Bailey LPN [employer] [facility], Inc.; [employer], Inc[employer] 10-20-2023 09:14-0500 Body surface area Derived from formula 1.98 m2 Joanne Bailey NEEDLE CONTROL CHENILLER [employer] [facility], Inc.; [employer], Inc. 10-20-2023 09:14-0500 Body weight 92.08 kg Joanne Bailey NEEDLE CONTROL CHENILLER [employer] [facility], Inc.; [employer], Inc. 10-20-2023 09:14-0500 Diastolic blood pressure 80 mm[Hg] Joanne Bailey LPN [employer] [facility], Inc.; [employer], Inc. 10-20-2023 09:14-0500 Heart rate 56 /min Joanne Bailey LPN [employer], [employer].; [employer], Inc[employer] 10-20-2023 09:14-0500 Systolic blood pressure 124 mm[Hg] Joanne Bailey NEEDLE CONTROL CHENILLER [facility].; [employer] [facility], Inc. 10-09-2023 11:35-0500 Body height 163.83 cm Lore Choulabach [facility], Inc.; [employer], [employer] 10-09-2023 11:35-0500 Body mass index (BMI) [Ratio] 34.31 kg/m2 Lore Perez Valentina [facility], Inc.; [employer], [employer] 10-09-2023 11:35-0500 Body surface area Derived from formula 1.98 m2 Lore Perez Valentina [facility] [employer] [facility].; [employer] 10-09-2023 11:35-0500 Body weight 92.08 kg Lore M Valentina [facility] [employer] [facility].; [employer]. 10-09-2023 11:35-0500 Diastolic blood pressure 69 mm[Hg] Lore M Valentina [facility] [employer] [facility].; [email or web address], [employer]. 10-09-2023 11:35-0500 Heart rate 68 /min Lore Perez Valentina [facility].; [employer]. 10-09-2023 11:35-0500 Systolic blood pressure 105 mm[Hg] Lore M Valentina [facility].; [employer] [facility]. 10-05-2023 09:12-0500 Body height 163.83 cm Nadja Mckay RN [employer] [facility].; [employer]. 10-05-2023 09:12-0500 Body mass index (BMI) [Ratio] 34.31 kg/m2 Nadja Mckay RN [employer] [facility].; [employer] 10-05-2023 09:12-0500 Body surface area Derived from formula 1.98 m2 Nadja Mckay RN [employer] [facility].; [employer]. 10-05-2023 09:12-0500 Body temperature 98.6 [degF] Nadja Mckay RN [facility] [employer], [employer] 10-05-2023 09:12-0500 Body weight 92.08 kg Nadja Mckay RN [facility], [facility].; [employer], [employer] 10-05-2023 09:12-0500 Diastolic blood pressure 68 mm[Hg] Nadja Mckay RN [facility] [employer], [employer] 10-05-2023 09:12-0500 Heart rate 73 /min Nadja Mckay RN [facility], [facility].; [employer], [employer] 10-05-2023 09:12-0500 Systolic blood pressure 111 mm[Hg] Nadja Mckay RN [employer] [facility], [facility].; [employer], [employer] 09-28-2023 08:59-0400 Body height 163.83 cm Joanne Bailey LPN [facility].; [email or web address], [employer] 09-28-2023 08:59-0400 Body mass index (BMI) [Ratio] 33.8 kg/m2 Meliza Stuckey [facility], [facility].; [employer], [employer] 09-28-2023 08:59-0400 Body surface area Derived from formula 1.97 m2 Joanne Bailey LPN [facility] [employer], [employer] 09-28-2023 08:59-0400 Body weight 90.72 kg Joanne Bailey LPN [employer] [facility], [facility].; [employer], [employer] 09-28-2023 08:59-0400 Diastolic blood pressure 72 mm[Hg] Joanne Bailey LPN [employer] [facility], [facility].; [employer], [employer]. 09-28-2023 08:59-0400 Heart rate 92 /min Joanne Bailey LPN [employer] [facility], [facility].; [employer], [employer] 09-28-2023 08:59-0400 Systolic blood pressure 152 mm[Hg] Joanne Bailey LPN [employer] [facility], [facility].; [employer], [employer] 06-17-2023 11:51-0400 Body height 161.3 cm Armond Mosquera MD Work Phone: [facility] 06-17-2023 11:51-0400 Body mass index (BMI) [Ratio] 35.33 kg/m2 Armond Mosquera MD Work Phone: [facility] 06-17-2023 11:51-0400 Body temperature 97.9 [degF] Armond Mosquera MD Work Phone: [facility] 06-17-2023 11:51-0400 Body weight 91.9 kg Armond Mosquera MD Work Phone: [facility] 06-17-2023 11:51-0400 Diastolic blood pressure 72 mm[Hg] Armond Mosquera MD Work Phone: [facility] 06-17-2023 11:51-0400 Heart rate 65 /min Armond Mosquera MD Work Phone: [facility] 06-17-2023 11:51-0400 Respiratory rate 18 /min Armond Mosquera MD Work Phone: [facility] 06-17-2023 11:51-0400 SaO2% (BldA) [Mass fraction] 97 % Armond Mosquera MD Work Phone: [facility] 06-17-2023 11:51-0400 Systolic blood pressure 152 mm[Hg] Armond Mosquera MD Work Phone: [facility] 04-20-2023 08:01-0400 Body height 163.83 cm Kirk Mercado MD Work Phone: [facility]. 04-20-2023 08:01-0400 Body mass index (BMI) [Ratio] 33.8 kg/m2 Kirk Mercado MD Work Phone: [facility] 04-20-2023 08:01-0400 Body surface area Derived from formula 1.97 m2 Kirk Mercado MD Work Phone: [employer].; [employer] 04-20-2023 08:01-0400 Body weight 90.72 kg Kirk Mercado MD Work Phone: [facility].; [employer] 04-20-2023 08:01-0400 Diastolic blood pressure 80 mm[Hg] Kirk Mercado MD Work Phone: [facility].; [facility]. 04-20-2023 08:01-0400 Heart rate 57 /min Kirk Mercado MD Work Phone: [employer].; [employer]. 04-20-2023 08:01-0400 Systolic blood pressure 134 mm[Hg] Kirk Mercado MD Work Phone: [employer].; [employer]. 12-24-2022 10:11-0500 Body height 163.83 cm Lore Montgomery [facility] [employer] 12-24-2022 10:11-0500 Body mass index (BMI) [Ratio] 33.46 kg/m2 Lore Montgomery [facility] Inc.; [employer] 12-24-2022 10:11-0500 Body surface area Derived from formula 1.96 m2 Lore Montgomery NEEDLE CONTROL CHENILLER [facility].; [facility]. 12-24-2022 10:11-0500 Body weight 89.81 kg Lore Montgomery NEEDLE CONTROL CHENILLER [employer]. 12-24-2022 10:11-0500 Diastolic blood pressure 74 mm[Hg] Lore Montgomery LPN [employer].; [employer] 12-24-2022 10:11-0500 Heart rate 76 /min Lore Montgomery LPN [employer].; [employer] 12-24-2022 10:11-0500 Systolic blood pressure 111 mm[Hg] Lore Montgomery NEEDLE CONTROL CHENILLER [employer].; [employer], [employer] 11-12-2022 11:23-0500 Body height 163.83 cm Kirk Mercado MD Work Phone: [employer].; [employer] 11-12-2022 11:23-0500 Body mass index (BMI) [Ratio] 32.95 kg/m2 Kirk Mercado MD Work Phone: [employer].; [employer]. 11-12-2022 11:23-0500 Body surface area Derived from formula 1.95 m2 Kirk Mercado MD Work Phone: [employer].; [employer] 11-12-2022 11:23-0500 Body weight 88.45 kg Kirk Mercado MD Work Phone: [employer].; [employer] 11-12-2022 11:23-0500 Diastolic blood pressure 78 mm[Hg] Kirk Mercado MD Work Phone: [facility].; [employer], [employer] 11-12-2022 11:23-0500 Heart rate 67 /min Kirk Mercado MD Work Phone: [employer].; [employer] 11-12-2022 11:23-0500 Systolic blood pressure 145 mm[Hg] Kirk Mercado MD Work Phone: [facility].; [employer] 11-11-2022 10:10-0500 Diastolic blood pressure 78 mm[Hg] Brenda Baez LPN Work Phone: [employer].; [employer] Work Phone: 11-11-2022 10:10-0500 Heart rate 58 /min Brendasukhi Baez LPN Work Phone: [employer] [facility], [employer].; [employer], [employer] Work Phone: 11-11-2022 10:10-0500 Systolic blood pressure 146 mm[Hg] Brenda Baez LPN Work Phone: [employer] [facility], Inc.; [employer], [employer] Work Phone: 08-25-2022 15:01-0400 Body height 163.83 cm Joanne Bailey [facility], [facility].; [employer], [employer] 08-25-2022 15:01-0400 Body mass index (BMI) [Ratio] 33.63 kg/m2 Joanne Bailey [facility] [employer] [facility], Inc.; [email or web address], [employer] 08-25-2022 15:01-0400 Body surface area Derived from formula 1.96 m2 Joanne Bailey [facility], Inc.; [email or web address], [employer] 08-25-2022 15:01-0400 Body weight 90.27 kg Joanne Bailey NEEDLE CONTROL CHENILLER [employer] [facility], Inc.; [employer], [employer] 08-25-2022 15:01-0400 Diastolic blood pressure 79 mm[Hg] Joanne Bailey NEEDLE CONTROL CHENILLER [employer] [facility], Inc.; [employer], [employer] 08-25-2022 15:01-0400 Heart rate 74 /min Joanne Bailey [facility], Inc.; [employer], [employer] 08-25-2022 15:01-0400 Systolic blood pressure 161 mm[Hg] Joanne Bailey MONICA [employer] [facility], Inc.; [employer], [employer] 06-18-2022 10:27-0400 Body height 163.83 cm Milady Shipman NEEDLE CONTROL CHENILLER [employer] [facility], Inc.; [employer], [employer] 06-18-2022 10:27-0400 Body mass index (BMI) [Ratio] 33.8 kg/m2 Milady Shipman NEEDLE CONTROL CHENILLER [employer] [facility], Inc.; [employer], [employer] 06-18-2022 10:27-0400 Body surface area Derived from formula 1.97 m2 Milady Shipman LPN [facility].; [facility] 06-18-2022 10:27-0400 Body weight 90.72 kg Milady Shipman LPN [facility].; [facility] 06-18-2022 10:27-0400 Diastolic blood pressure 77 mm[Hg] Milady Shipman LPN [facility].; [facility]. 06-18-2022 10:27-0400 Heart rate 68 /min Milady Shipman LPN [facility].; [facility] 06-18-2022 10:27-0400 Systolic blood pressure 138 mm[Hg] Milady Shipman LPN [facility].; [facility]. 06-12-2022 11:02-0400 Body height 161.3 cm Armond Mosquera MD Work Phone: [facility] 06-12-2022 11:02-0400 Body mass index (BMI) [Ratio] 34.61 kg/m2 Armond Mosquera MD Work Phone: [facility] 06-12-2022 11:02-0400 Body temperature 98.1 [degF] Armond Mosquera MD Work Phone: [facility] 06-12-2022 11:02-0400 Body weight 90.04 kg Armond Mosquera MD Work Phone: [facility] 06-12-2022 11:02-0400 Diastolic blood pressure 61 mm[Hg] Armond Mosquera MD Work Phone: [facility] 06-12-2022 11:02-0400 Heart rate 67 /min Armond Mosquera MD Work Phone: [facility] 06-12-2022 11:02-0400 Respiratory rate 18 /min Armond Mosquera MD Work Phone: [facility] 06-12-2022 11:02-0400 SaO2% (BldA) [Mass fraction] 96 % Armond Mosquera MD Work Phone: [facility] 06-12-2022 11:02-0400 Systolic blood pressure 137 mm[Hg] Armond Mosquera MD Work Phone: [facility] 03-19-2022 14:22-0400 Body height 163.83 cm Esther [facility] Inc.; [employer], [employer] 03-19-2022 14:22-0400 Body mass index (BMI) [Ratio] 33.97 kg/m2 Esther King [facility].; [employer], [employer] 03-19-2022 14:22-0400 Body surface area Derived from formula 1.97 m2 Esther King [facility], Inc.; [employer], [employer] 03-19-2022 14:22-0400 Body weight 91.17 kg Esther King [facility] [employer], [employer] 03-19-2022 14:22-0400 Diastolic blood pressure 77 mm[Hg] Esther King [facility] [employer], [employer] 03-19-2022 14:22-0400 Heart rate 67 /min Esther King [facility] [employer], [employer] 03-19-2022 14:22-0400 Systolic blood pressure 129 mm[Hg] Esther King [facility] [employer], [employer] 01-14-2022 14:59-0500 Body height 163.83 cm MelizaLauren Bailey [facility].; [employer], [employer] 01-14-2022 14:59-0500 Body mass index (BMI) [Ratio] 34.14 kg/m2 Meliza Leo [facility] Inc.; [employer], [employer] 01-14-2022 14:59-0500 Body surface area Derived from formula 1.98 m2 [facility] NEEDLE CONTROL CHENILLER [employer], [employer].; [employer], [employer] 01-14-2022 14:59-0500 Body temperature 97.9 [degF] Joanne Bailey [facility], [facility].; [employer], [employer] 01-14-2022 14:59-0500 Body weight 91.63 kg Joanne Bailey [facility], [facility].; [employer], [employer] 01-14-2022 14:59-0500 Diastolic blood pressure 64 mm[Hg] Joanne Bailey [facility], Inc.; [employer] 01-14-2022 14:59-0500 Heart rate 74 /min Joanne Bailey [facility], Inc.; [employer] 01-14-2022 14:59-0500 Systolic blood pressure 142 mm[Hg] Joanne Bailey [facility] [employer] [facility], Inc.; [employer], [employer] 12-18-2021 09:16-0500 Body height 163.83 cm Esther Christine [facility], [facility].; [employer] 12-18-2021 09:16-0500 Body mass index (BMI) [Ratio] 34.14 kg/m2 Esther Christine [facility] [employer] [facility], Inc.; [employer], [employer] 12-18-2021 09:16-0500 Body surface area Derived from formula 1.98 m2 Esther King [facility] [employer] [facility], Inc.; [employer], [employer] 12-18-2021 09:16-0500 Body weight 91.63 kg Esther Christine [facility] [employer] [facility], [facility].; [employer], [employer] 12-18-2021 09:16-0500 Diastolic blood pressure 80 mm[Hg] Esther Vaughanr [facility], Inc.; [employer], [employer] 12-18-2021 09:16-0500 Heart rate 64 /min Esther Christine [facility] [employer] [facility], Inc.; [employer], [employer] 12-18-2021 09:16-0500 Systolic blood pressure 129 mm[Hg] Esther Vaughanr [facility] [employer] 06-18-2021 13:26-0400 Body height 163.83 cm Kirk Mercado MD Work Phone: [employer] 06-18-2021 13:26-0400 Body mass index (BMI) [Ratio] 33.63 kg/m2 Kirk Mercado MD Work Phone: [employer].; [employer] 06-18-2021 13:26-0400 Body surface area Derived from formula 1.96 m2 Kirk Mercado MD Work Phone: [facility].; [employer] 06-18-2021 13:26-0400 Body weight 90.27 kg Kirk Mercado MD Work Phone: [employer] 06-18-2021 13:26-0400 Diastolic blood pressure 65 mm[Hg] Kirk Mercado MD Work Phone: [employer].; [employer] 06-18-2021 13:26-0400 Heart rate 69 /min Kirk Mercado MD Work Phone: [employer] [employer] 06-18-2021 13:26-0400 Systolic blood pressure 135 mm[Hg] Kirk Mercado MD Work Phone: [employer].; [employer], [employer] 02-19-2021 10:44-0400 Body height 163.83 cm [facility] [employer], [employer] 02-19-2021 10:44-0400 Body mass index (BMI) [Ratio] 33.63 kg/m2 [facility] [employer], [employer] 02-19-2021 10:44-0400 Body surface area Derived from formula 1.96 m2 [facility] [employer], [employer] 02-19-2021 10:44-0400 Body weight 90.27 kg Joanne Bailey LPN [facility].; [employer] [facility], Inc[facility] 02-19-2021 10:44-0400 Diastolic blood pressure 75 mm[Hg] Joanne Bailey [facility], [facility].; [employer] [facility], Inc[facility] 02-19-2021 10:44-0400 Heart rate 60 /min Joanne Bailey [facility], [facility].; [employer] [facility], Inc[facility] 02-19-2021 10:44-0400 Systolic blood pressure 136 mm[Hg] Joanne Bailey [facility], [facility].; [employer] [facility], Inc[facility] 01-28-2021 10:34-0500 Body height 163.83 cm Joanne Bailey NEEDLE CONTROL CHENILLER [facility].; [employer], [employer] 01-28-2021 10:34-0500 Body mass index (BMI) [Ratio] 33.63 kg/m2 Joanne Bailey [facility], [facility].; [employer] [facility], Inc[facility] 01-28-2021 10:34-0500 Body surface area Derived from formula 1.96 m2 Meliza Stuckey [facility], [facility].; [employer] [facility], Inc[facility] 01-28-2021 10:34-0500 Body weight 90.27 kg Joanne Bailey LPN [facility].; [employer] [facility], Inc. 01-28-2021 10:34-0500 Diastolic blood pressure 80 mm[Hg] Joanne Bailey NEEDLE CONTROL CHENILLER [facility].; [employer] [facility], Inc[facility] 01-28-2021 10:34-0500 Heart rate 75 /min MelizaLauren Bailey [facility], [facility].; [employer], [employer] 01-28-2021 10:34-0500 Systolic blood pressure 129 mm[Hg] Joanne Bailey NEEDLE CONTROL CHENILLER [facility].; [employer], [employer] 09-21-2020 09:06-0400 Body height 163.83 cm Nadja Mckay RN [facility], [facility].; [employer] [facility], [facility]. 09-21-2020 09:06-0400 Body mass index (BMI) [Ratio] 34.48 kg/m2 Nadja Mckay RN [employer] [facility].; [employer] [facility]. 09-21-2020 09:06-0400 Body surface area Derived from formula 1.98 m2 Nadja Mckay RN [employer] [facility].; [employer] [facility]. 09-21-2020 [id number] Body weight 92.53 kg Nadja Mckay RN [employer] [facility].; [employer] [facility]. 09-21-2020 [id number] Diastolic blood pressure 75 mm[Hg] Nadja Mckay RN [employer] [facility].; [employer] [facility]. 09-21-2020 [id number]:[id number] Heart rate 72 /min Nadja Mckay RN [employer] [facility].; [employer]. 09-21-2020 [id number]:[id number] Systolic blood pressure 130 mm[Hg] Nadja Mckay RN [employer] [facility].; [employer] [facility]. 05-14-2020 [id number] Body height 163.83 cm Nadja Mckay RN [employer] [facility].; [employer]. 05-14-2020 09:21-0400 Body mass index (BMI) [Ratio] 35.32 kg/m2 Nadja Mckay RN [employer] [facility].; [employer] [facility]. 05-14-2020 [id number] Body surface area Derived from formula 2 m2 Nadja Mckay RN [employer] [facility].; [employer] [facility]. 05-14-2020 [id number] Body weight 94.8 kg Nadja Mckay RN [employer] [facility].; [employer] [facility]. 05-14-2020 09:21-0400 Diastolic blood pressure 78 mm[Hg] Nadja Mckay RN [employer] [facility].; [employer]. 05-14-2020 09:21-0400 Heart rate 72 /min Nadja Mckay RN [employer].; [employer]. 05-14-2020 09:21-0400 Systolic blood pressure 145 mm[Hg] Nadja Mckay RN [employer] 04-11-2020 07:08-0400 Body height 163.83 cm Kirk Mercado MD Work Phone: [employer] 04-11-2020 07:08-0400 Body mass index (BMI) [Ratio] 34.98 kg/m2 Kirk Mercado MD Work Phone: [employer] 04-11-2020 07:08-0400 Body surface area Derived from formula 2 m2 Kirk Mercado MD Work Phone: [employer] 04-11-2020 07:08-0400 Body weight 93.9 kg Kirk Mercado MD Work Phone: [employer] 04-11-2020 07:08-0400 Diastolic blood pressure 80 mm[Hg] Kirk Mercado MD Work Phone: [employer] 04-11-2020 07:08-0400 Heart rate 76 /min Kirk Mercado MD Work Phone: [employer] 04-11-2020 07:08-0400 Systolic blood pressure 136 mm[Hg] Kirk Mercado MD Work Phone: [employer] 08-09-2019 14:13-0400 Body height 163.83 cm Kirk Mercado MD Work Phone: [employer] 08-09-2019 14:13-0400 Body mass index (BMI) [Ratio] 35.15 kg/m2 Kirk Mercado MD Work Phone: [employer] 08-09-2019 14:13-0400 Body surface area Derived from formula 2 m2 Kirk Mercado MD Work Phone: [employer] 08-09-2019 14:13-0400 Body weight 94.35 kg Kirk Mercado MD Work Phone: [employer] 08-09-2019 14:13-0400 Diastolic blood pressure 76 mm[Hg] Kirk Mercado MD Work Phone: [employer] 08-09-2019 14:13-0400 Heart rate 76 /min Kirk Mercado MD Work Phone: [employer] 08-09-2019 14:13-0400 Systolic blood pressure 132 mm[Hg] Kirk Mercado MD Work Phone: [employer] 05-24-2019 11:09-0400 Body height 163.83 cm Joanne Bailey [facility] [employer] 05-24-2019 11:09-0400 Body mass index (BMI) [Ratio] 34.64 kg/m2 Joanne Bailey MONICA [employer] 05-24-2019 11:09-0400 Body surface area Derived from formula 1.99 m2 Joanne Bailey [employer] 05-24-2019 11:09-0400 Body weight 92.99 kg Joanne Bailey [employer] 05-24-2019 11:09-0400 Diastolic blood pressure 78 mm[Hg] Joanne Bailey MONICA [employer] 05-24-2019 11:09-0400 Heart rate 103 /min Joanne Dislaey [employer] 05-24-2019 11:09-0400 Systolic blood pressure 131 mm[Hg] Joanne Bailey [employer] 11-26-2018 14:45-0500 Body height 163.83 cm Shraddha Jag Mutkingsleybaugh [employer] 11-26-2018 14:45-0500 Body mass index (BMI) [Ratio] 34.98 kg/m2 Shraddha K Mutersbaugh [employer] 11-26-2018 14:45-0500 Body surface area Derived from formula 2 m2 Shraddha K Mutersbaugh [employer], [employer]. 11-26-2018 14:45-0500 Body weight 93.9 kg Shraddha K Mutersbaugh [employer], [employer]. 11-26-2018 14:45-0500 Diastolic blood pressure 76 mm[Hg] Shraddha K Mutersbaugh [employer], [employer]. 11-26-2018 14:45-0500 Heart rate 89 /min Shraddha K Mutersbaugh [employer], [employer]. 11-26-2018 14:45-0500 Systolic blood pressure 162 mm[Hg] Shraddha K Mutersbaugh [employer] 07-14-2018 06:46-0400 Body height 163.83 cm Kirk Mercado MD Work Phone: [employer] 07-14-2018 06:46-0400 Body mass index (BMI) [Ratio] 34.81 kg/m2 Kirk Mercado MD Work Phone: [employer] 07-14-2018 06:46-0400 Body surface area Derived from formula 1.99 m2 Kirk Mercado MD Work Phone: [employer] 07-14-2018 06:46-0400 Body weight 93.44 kg Kirk Mercado MD Work Phone: [employer] 07-14-2018 06:46-0400 Diastolic blood pressure 71 mm[Hg] Kirk Mercado MD Work Phone: [employer] 07-14-2018 06:46-0400 Heart rate 67 /min Kirk Mercado MD Work Phone: [employer] 07-14-2018 06:46-0400 Systolic blood pressure 130 mm[Hg] Kirk Mercado MD Work Phone: [employer] 06-24-2018 11:21-0400 Body height 163.83 cm Shraddha K Mutersbaugh [employer] 06-24-2018 11:21-0400 Body mass index (BMI) [Ratio] 34.98 kg/m2 Shraddha K Mutersbaugh [employer] 06-24-2018 11:21-0400 Body surface area Derived from formula 2 m2 Shraddha K Mutersbaugh [employer] 06-24-2018 11:21-0400 Body temperature 100.2 [degF] Shraddha K Mutersbaugh [employer] 06-24-2018 11:21-0400 Body weight 93.9 kg Shraddha K Mutersbaugh [employer] 06-24-2018 11:21-0400 Diastolic blood pressure 76 mm[Hg] Shraddha K Mutersbaugh [employer] 06-24-2018 11:21-0400 Heart rate 90 /min Shraddha K Mutersbaugh [employer] 06-24-2018 11:21-0400 Systolic blood pressure 146 mm[Hg] Shraddhasa Jag Walker LPN [employer] [facility], [employer].; [employer] 01-25-2018 09:29-0500 Body height 163.83 cm Anna Green LPN [employer] 01-25-2018 09:29-0500 Body mass index (BMI) [Ratio] 35.32 kg/m2 Anna Green LPN [employer] 01-25-2018 09:29-0500 Body surface area Derived from formula 2 m2 [facility] [employer] 01-25-2018 09:29-0500 Body weight 94.8 kg Anna Green LPN [employer] 01-25-2018 09:29-0500 Diastolic blood pressure 76 mm[Hg] Anna Green LPN [employer] 01-25-2018 09:29-0500 Heart rate 63 /min Anna Green [facility] [employer] 01-25-2018 09:29-0500 Systolic blood pressure 143 mm[Hg] Anna Green LPN [employer] 01-08-2018 13:57-0500 Body height 163.83 cm Kirk Mercado MD Work Phone: [employer] 01-08-2018 13:57-0500 Body mass index (BMI) [Ratio] 35.66 kg/m2 Kirk Mercado MD Work Phone: [employer] 01-08-2018 13:57-0500 Body surface area Derived from formula 2.01 m2 Kirk Mercado MD Work Phone: [employer] 01-08-2018 13:57-0500 Body weight 95.71 kg Kirk Mercado MD Work Phone: [employer] 01-08-2018 13:57-0500 Diastolic blood pressure 78 mm[Hg] Kirk Mercado MD Work Phone: [employer] 01-08-2018 13:57-0500 Heart rate 66 /min Kirk Mercado MD Work Phone: [employer] 01-08-2018 13:57-0500 Systolic blood pressure 124 mm[Hg] Kirk Mercado MD Work Phone: [employer] 12-11-2017 08:51-0500 Body height 163.83 cm Anna Green LPN [employer] 12-11-2017 08:51-0500 Body mass index (BMI) [Ratio] 35.32 kg/m2 Anna Green LPN [employer] 12-11-2017 08:51-0500 Body surface area Derived from formula 2 m2 Anna Green [employer] 12-11-2017 08:51-0500 Body weight 94.8 kg Anna Green LPN [employer] 12-11-2017 08:51-0500 Diastolic blood pressure 74 mm[Hg] Anna Green LPN [employer] 12-11-2017 08:51-0500 Heart rate 66 /min Anna Green LPN [employer] 12-11-2017 08:51-0500 Systolic blood pressure 147 mm[Hg] Anna Green LPN [employer] 09-05-2017 09:20-0400 Body height 163.83 cm Yarelis Holloway RN [employer] 09-05-2017 09:20-0400 Body mass index (BMI) [Ratio] 34.81 kg/m2 Yarelis Holloway RN [employer] [facility], [facility].; [employer] 09-05-2017 09:20-0400 Body surface area Derived from formula 1.99 m2 Yarelis Holloway RN [employer] [facility], Inc.; [employer] 09-05-2017 09:20-0400 Body weight 93.44 kg Yarelis Holloway RN [employer] 09-05-2017 09:20-0400 Diastolic blood pressure 76 mm[Hg] Yarelis Holloway RN [employer], [employer]. 09-05-2017 09:20-0400 Heart rate 62 /min Yarelis Holloway RN [employer], [employer]. 09-05-2017 09:20-0400 Systolic blood pressure 144 mm[Hg] Yarelis Holloway RN [employer] 07-13-2017 09:06-0400 Body height 163.83 cm Anna Green LPN [employer] 07-13-2017 09:06-0400 Body mass index (BMI) [Ratio] 35.86 kg/m2 Anna Green LPN [employer] 07-13-2017 09:06-0400 Body surface area Derived from formula 2.02 m2 Anna Green LPN [employer] 07-13-2017 09:06-0400 Body weight 96.25 kg Anna Green LPN [employer] 07-13-2017 09:06-0400 Diastolic blood pressure 76 mm[Hg] Anna Green LPN [employer] 07-13-2017 09:06-0400 Heart rate 69 /min Anna Green LPN [employer] 07-13-2017 09:06-0400 Systolic blood pressure 136 mm[Hg] Anna Green LPN [employer] 02-25-2017 07:32-0400 Body height 163.83 cm Kirk Mercado MD Work Phone: [employer] 02-25-2017 07:32-0400 Body mass index (BMI) [Ratio] 35.15 kg/m2 Kirk Mercado MD Work Phone: [employer] 02-25-2017 07:32-0400 Body surface area Derived from formula 2 m2 Kirk Mercado MD Work Phone: [employer] 02-25-2017 07:32-0400 Body weight 94.35 kg Kirk Mercado MD Work Phone: [employer] 02-25-2017 07:32-0400 Diastolic blood pressure 78 mm[Hg] Kirk Mercado MD Work Phone: [employer] 02-25-2017 07:32-0400 Heart rate 77 /min Kirk Mercado MD Work Phone: [employer] 02-25-2017 07:32-0400 Systolic blood pressure 132 mm[Hg] Kirk Mercado MD Work Phone: [employer] 07-30-2016 14:17-0400 Body height 163.83 cm [facility] [employer] 07-30-2016 14:17-0400 Body mass index (BMI) [Ratio] 33.12 kg/m2 [facility] [employer] 07-30-2016 14:17-0400 Body surface area Derived from formula 1.95 m2 [facility] [employer] 07-30-2016 14:17-0400 Body weight 88.91 kg Joanne Bailey MONICA [employer] 07-30-2016 14:17-0400 Diastolic blood pressure 88 mm[Hg] Joanne Bailey MONICA [employer] 07-30-2016 14:17-0400 Heart rate 87 /min Joanne Bailey [employer] 07-30-2016 14:17-0400 Systolic blood pressure 162 mm[Hg] Joanne Bailey MONICA [employer] 01-25-2016 10:44-0500 Body height 163.83 cm Lore Montgomery LPN [employer] 01-25-2016 10:44-0500 Body mass index (BMI) [Ratio] 33.8 kg/m2 Lore Montgomery [facility] [employer] 01-25-2016 10:44-0500 Body surface area Derived from formula 1.97 m2 Lore Montgomery LPN [employer], [employer]. 01-25-2016 10:44-0500 Body temperature 98 [degF] Lore Montgomery LPN [employer] 01-25-2016 10:44-0500 Body weight 90.72 kg Lore Montgomery LPN [employer] 01-25-2016 10:44-0500 Diastolic blood pressure 83 mm[Hg] Lore Montgomery LPN [employer] 01-25-2016 10:44-0500 Heart rate 65 /min Lore Montgomery LPN [employer] 01-25-2016 10:44-0500 Systolic blood pressure 137 mm[Hg] Lore Montgomery LPN [employer] 07-30-2015 09:52-0400 Body height 163.83 cm Kirk Mercado MD Work Phone: [employer] 07-30-2015 09:52-0400 Body mass index (BMI) [Ratio] 34.14 kg/m2 Kirk Mercado MD Work Phone: [employer] 07-30-2015 09:52-0400 Body surface area Derived from formula 1.98 m2 Kirk Mercado MD Work Phone: [employer] 07-30-2015 09:52-0400 Body weight 91.63 kg Kirk Mercado MD Work Phone: [employer] 07-30-2015 09:52-0400 Diastolic blood pressure 82 mm[Hg] Kirk Mercado MD Work Phone: [employer] 07-30-2015 09:52-0400 Heart rate 64 /min Kirk Mercado MD Work Phone: [employer] 07-30-2015 09:52-0400 Systolic blood pressure 132 mm[Hg] Kirk Mercado MD Work Phone: [employer] 05-16-2015 07:28-0400 Body height 163.83 cm Kirk Mercado MD Work Phone: [employer] 05-16-2015 07:28-0400 Body mass index (BMI) [Ratio] 34.81 kg/m2 Kirk Mercado MD Work Phone: [employer] 05-16-2015 07:28-0400 Body surface area Derived from formula 1.99 m2 Kirk Mercado MD Work Phone: [employer] 05-16-2015 07:28-0400 Body weight 93.44 kg Kirk Mrecado MD Work Phone: [employer] 05-16-2015 07:28-0400 Diastolic blood pressure 88 mm[Hg] Kirk Mercado MD Work Phone: [employer] 05-16-2015 07:28-0400 Heart rate 68 /min Kirk Mercado MD Work Phone: [employer] 05-16-2015 07:28-0400 Systolic blood pressure 148 mm[Hg] Kirk Mercado MD Work Phone: [employer] 01-15-2015 09:07-0500 Body weight 92.53 kg Anna Green LPN [employer] 01-15-2015 09:07-0500 Diastolic blood pressure 66 mm[Hg] Anna Green LPN [employer] 01-15-2015 09:07-0500 Heart rate 68 /min Anna Green LPN [employer] 01-15-2015 09:07-0500 Systolic blood pressure 133 mm[Hg] Anna Green LPN [employer] 07-10-2014 09:39-0400 Body height 163.83 cm Kirk Mercado MD Work Phone: [employer] 07-10-2014 09:39-0400 Body mass index (BMI) [Ratio] 35.49 kg/m2 Kirk Mercado MD Work Phone: [employer] 07-10-2014 09:39-0400 Body surface area Derived from formula 2.01 m2 Kirk Mercado MD Work Phone: [employer] 07-10-2014 09:39-0400 Body weight 95.26 kg Kirk Mercado MD Work Phone: [employer] 07-10-2014 09:39-0400 Diastolic blood pressure 82 mm[Hg] Kirk Mercado MD Work Phone: [employer] 07-10-2014 09:39-0400 Heart rate 77 /min Kirk Mercado MD Work Phone: [employer] 07-10-2014 09:39-0400 Systolic blood pressure 150 mm[Hg] Kirk Mercado MD Work Phone: [employer] 01-09-2014 09:31-0500 Body weight 98.43 kg Kirk Mercado MD Work Phone: [employer] 01-09-2014 09:31-0500 Diastolic blood pressure 73 mm[Hg] Kirk Mercado MD Work Phone: [employer] 01-09-2014 09:31-0500 Heart rate 72 /min Kirk Mercado MD Work Phone: [employer] 01-09-2014 09:31-0500 Systolic blood pressure 148 mm[Hg] Kirk Mercado MD Work Phone: [employer] 11-09-2013 09:31-0500 Body height 163.83 cm Lore Montgomery LPN [employer] 11-09-2013 09:31-0500 Body mass index (BMI) [Ratio] 37.01 kg/m2 Lore Montgomery LPN [employer] 11-09-2013 09:31-0500 Body surface area Derived from formula 2.04 m2 Lore Montgomery [employer] 11-09-2013 09:31-0500 Body temperature 97.7 [degF] Lore Perez Valentina ANDERSON [employer] 11-09-2013 09:31-0500 Body weight 99.34 kg Lore Perez Valentina ANDERSON [employer] 11-09-2013 09:31-0500 Diastolic blood pressure 87 mm[Hg] Lore Perez Valentina [employer] 11-09-2013 09:31-0500 Heart rate 78 /min Lore Perez Valentina CORONELN [employer] 11-09-2013 09:31-0500 Systolic blood pressure 187 mm[Hg] Lore Perez Valentina ANDERSON [employer] 07-25-2013 09:02-0400 Body height 163.83 cm Kirk Mercado MD Work Phone: [employer] 07-25-2013 09:02-0400 Body mass index (BMI) [Ratio] 37.35 kg/m2 Kirk Mercado MD Work Phone: [employer] 07-25-2013 09:02-0400 Body surface area Derived from formula 2.05 m2 Kirk Mercado MD Work Phone: [employer] 07-25-2013 09:02-0400 Body weight 100.25 kg Kirk Mercado MD Work Phone: [employer] 07-25-2013 09:02-0400 Diastolic blood pressure 88 mm[Hg] Kikr Mercado MD Work Phone: [employer] 07-25-2013 09:02-0400 Heart rate 76 /min Kirk Mercado MD Work Phone: [employer] 07-25-2013 09:02-0400 Systolic blood pressure 148 mm[Hg] Kirk Mercado MD Work Phone: [email or web address] 02-23-2013 09:17-0400 Body height 163.83 cm Joanne Bailey [facility] [employer] 02-23-2013 09:17-0400 Body mass index (BMI) [Ratio] 37.01 kg/m2 Meliza Leo [facility] [employer] 02-23-2013 09:17-0400 Body surface area Derived from formula 2.04 m2 [facility] [employer] 02-23-2013 09:17-0400 Body weight 99.34 kg [facility] [employer] 02-23-2013 09:17-0400 Diastolic blood pressure 92 mm[Hg] [facility] [employer] 02-23-2013 09:17-0400 Heart rate 78 /min [facility], Inc.; [employer] 02-23-2013 09:17-0400 Systolic blood pressure 182 mm[Hg] [facility] [employer] 01-24-2013 09:120500 Body height 163.83 cm Kirk Mercado MD Work Phone: [email or web address] 01-24-2013 09:12-0500 Body mass index (BMI) [Ratio] 37.01 kg/m2 Kirk Mercado MD Work Phone: [employer] 01-24-2013 09:12-0500 Body surface area Derived from formula 2.04 m2 Kirk Mercado MD Work Phone: [employer] 01-24-2013 09:12-0500 Body weight 99.34 kg Kirk Mercado MD Work Phone: [employer] 01-24-2013 09:12-0500 Diastolic blood pressure 84 mm[Hg] Kirk Mercado MD Work Phone: [employer] 01-24-2013 09:12-0500 Heart rate 69 /min Kirk Mercado MD Work Phone: [employer] 01-24-2013 09:12-0500 Systolic blood pressure 150 mm[Hg] Kirk Mercado MD Work Phone: [employer] 11-03-2012 09:50-0500 Body weight 98.88 kg Joanne Bailey [facility] [employer] 11-03-2012 09:50-0500 Diastolic blood pressure 93 mm[Hg] Joanne Bailey [facility] [employer] 11-03-2012 09:50-0500 Heart rate 74 /min Joanne Bailey [facility] [employer] 11-03-2012 09:50-0500 Systolic blood pressure 175 mm[Hg] Joanne Bailey [facility] [employer] 06-30-2012 08:24-0400 Body height 163.83 cm Krik Mercado MD Work Phone: [employer] 06-30-2012 08:24-0400 Body mass index (BMI) [Ratio] 36.5 kg/m2 Kirk Mercado MD Work Phone: [employer] 06-30-2012 08:24-0400 Body surface area Derived from formula 2.03 m2 Kirk Mercado MD Work Phone: [employer] 06-30-2012 08:24-0400 Body weight 97.98 kg Kirk Mercado MD Work Phone: [employer], [employer] 06-30-2012 08:24-0400 Diastolic blood pressure 78 mm[Hg] Kirk Mercado MD Work Phone: [employer] 06-30-2012 08:24-0400 Heart rate 78 /min Kirk Mercado MD Work Phone: [employer] 06-30-2012 08:24-0400 Systolic blood pressure 140 mm[Hg] Kirk Mercado MD Work Phone: [employer] 04-07-2012 09:08-0400 Body height 162.56 cm Meliza Leo [facility], Inc.; [employer] 04-07-2012 09:08-0400 Body mass index (BMI) [Ratio] 37.08 kg/m2 [facility] [employer] 04-07-2012 09:08-0400 Body surface area Derived from formula 2.02 m2 Meliza Leo [employer] 04-07-2012 09:08-0400 Body weight 97.98 kg Meliza Leo [facility] [employer] 04-07-2012 09:08-0400 Diastolic blood pressure 86 mm[Hg] Meliza Stuckey [employer] 04-07-2012 09:08-0400 Heart rate 62 /min Meliza Stuckey [employer] 04-07-2012 09:08-0400 Systolic blood pressure 170 mm[Hg] Joanne Bailey LPN [employer] 01-21-2012 14:41-0500 Body height 162.56 cm Kirk Mercado MD Work Phone: [employer] 01-21-2012 14:41-0500 Body mass index (BMI) [Ratio] 37.42 kg/m2 Kirk Mercado MD Work Phone: [employer] 01-21-2012 14:41-0500 Body surface area Derived from formula 2.03 m2 Kirk Mercado MD Work Phone: [employer] 01-21-2012 14:41-0500 Body weight 98.88 kg Kirk Mercado MD Work Phone: [employer] 01-21-2012 14:41-0500 Diastolic blood pressure 91 mm[Hg] Kirk Mercado MD Work Phone: [employer] 01-21-2012 14:41-0500 Heart rate 88 /min Kirk Mercado MD Work Phone: [employer] 01-21-2012 14:41-0500 Systolic blood pressure 178 mm[Hg] Kirk Mecrado MD Work Phone: [employer] Encounters Encounter Date Encounter Type Care Provider Facility Start: 12-22-2023 ambulatory SUMMER MITTAL David [facility] Start: 12-21-2023 End: 12-21-2023 ambulatory STAS CHRISTIAN [facility] Start: 12-15-2023 End: 12-15-2023 ambulatory KIRK MERCADO David [facility] Start: 12-01-2023 End: 12-01-2023 Kirk Mercado MD Work Phone: [employer] Start: 11-16-2023 End: 11-16-2023 Office outpatient visit 15 minutes Kirk Mercado MD Work Phone: [employer] Start: 11-06-2023 End: [facility]: 10-26-[facility]23 End: 10-26-2023 Kirk Mercado MD Work Phone: [employer] [facility] Start: 10-23-2023 End: 10-23-2023 [facility] Start: 10-23-2023 End: 10-23-2023 Office outpatient visit 25 minutes Kirk Mercado MD Work Phone: [employer] Start: 10-20-2023 End: 10-20-2023 Office outpatient visit 25 minutes Kirk Mercado MD Work Phone: [employer] Start: 10-09-2023 End: 10-09-2023 Office outpatient visit 15 minutes Kirk Mercado MD Work Phone: [employer] Start: 10-06-2023 End: 10-06-2023 Kirk Mercado MD Work Phone: [employer] Start: 10-05-2023 End: 10-05-2023 Office outpatient visit 15 minutes Kirk Mercado MD Work Phone: [employer] Start: 09-28-2023 End: 09-28-2023 Office outpatient visit 15 minutes Kirk Mercado MD Work Phone: [employer] Start: 07-21-2023 End: 07-21-2023 Kirk Mercado MD Work Phone: [employer] Start: 06-17-2023 End: 06-17-2023 Office outpatient visit [...] End: 12-24-2022 Lab findings surveillance Joanne castro [employer] Start: 12-24-2022 End: 07-21-2023 Oncology colorectal screening [...] Phone: Start: 10-24-2019 End: 10-24-2019 Esther King [facility] Start: 10-19-2019 End: 10-19-2019 Joanne Bailey LP [...] End: 09-28-2018 Examination of retina Joanne Bailey [employer] Start: 07-14-2018 End: 07-14-2018 Pos clin depres [...] malignant neoplasm of large intestine Lore Montgomery [employer] Start: 11-30-1976 End: 11-30-1976 Nadja Mckay RN Abdominal hysterectomy Laverne issa RN Joanne Disla [employer] Plan of Treatment Date Care Activity Detail Author Start: 12-26-2032 Tetanus vaccination TETANUS [facility] Start: 06-08-2024 End: 06-08-2024 Patient encounter procedure 06/08/2024 12:00 PM EDT Office Visit Division of Endocrinology [address] [place] [id number] Armond Mosquera MD [address] [id number] Division of Endocrinology Start: 04-19-2024 [facility] Start: 07-31-2023 Influenza vaccination INFLUENZA VACCINE (#1) [facility] Start: 06-17-2023 End: 06-17-2023 Patient encounter procedure 06/17/2023 Office Visit Endocrinology, Diabetes & Metabolism Armond Mosquera MD [address] [place] [address] Division of Endocrinology Start: 12-19-2022 Thyroid stimulating hormone measurement TSH [facility] Start: 11-13-2022 [facility] [employer] Start: 07-31-2022 Influenza vaccination INFLUENZA VACCINE (#1) [facility] Start: 03-14-2022 Screening mammography bi 2-view breast inc cad [employer] [facility]; [employer] Start: 11-12-2021 Assay of thyroid stimulating hormone [facility]; [employer] [facility] Start: 10-19-2020 Screening for malignant neoplasm of colon COLORECTAL CANCER SCREENING DISCUSSION [facility] Start: 11-17-2019 Potassium [Moles/volume] in Serum or Plasma POTASSIUM [facility] Start: 2018 Pneumococcal vaccination PNEUMOCOCCAL VACCINE SERIES (1 - PCV) [facility] Start: 2003 Zoster vaccine hzv live for subcutaneous use ZOSTER (SHINGLES) VACCINE (1 of 2) [facility] Start: 1998 Colonoscopy COLORECTAL CANCER SCREENING DISCUSSION [facility] Start: 1993 Fasting lipid profile LIPID SCREENING [facility] Start: 1993 Lipid panel LIPID SCREENING [facility] Start: 1993 Screening for malignant neoplasm of breast MAMMOGRAM SCREENING DISCUSSION [facility] Start: 1993 Screening mammography MAMMOGRAM SCREENING DISCUSSION [facility] Start: 1974 Screening for malignant neoplasm of cervix CERVICAL CANCER SCREENING DISCUSSION [facility] Start: 1972 Third diphtheria, tetanus and acellular pertussis (DTaP) vaccination TDAP (ADULT) [facility] Start: 1971 Tetanus vaccination TETANUS [facility] Start: [birth year]-07-1954 COVID-19 VACCINE (#1) COVID-19 VACCINE (#1) [facility] Start: 1953 Hepatitis C antibody, confirmatory test HEPATITIS C VIRUS SCREENING [facility] Start: 1953 Hepatitis C screening HEPATITIS C VIRUS SCREENING [facility] Start: 1955 Screening for osteoporosis DEXA SCAN DISCUSSION [facility] Us soft tissue head & neck real time imge docm [place],HEAD/NECK TISSUES,REAL TIME [place] - OFFICE PERFORMED IMAGING Routine Malignant neoplasm of thyroid gland Ordered: 06/12/2022 [facility] Immunizations Immunization Date Immunization Notes Care Provider Fa cility 08-30-2023 Seasonal, quadrivale nt, recombinant, injectable influenza vaccine, preservative free Kirk Mercado MD Work Phone: [employer] [facility] [employer] 11-04-2022 influenza virus vacc ine, unspecified formulation Armond Mosquera MD Work Phone: [facility] 09-09-2021 influenza virus vacc ine, unspecified formulation Armond Mosquera MD Work Phone: [facility] 05-22-2021 Kirk Mercado MD Work Phone: [employer] 04-12-2021 Kirk Mercado MD Work Phone: [employer] 08-09-2019 diphtheria, tetanus toxoids and acellular pertussis vaccine, unspecified formulation Kirk Mercado MD Work Phone: [employer] 05-24-2019 Shingrix (PF) Kirk Mercado MD Work Phone: [employer] 05-24-2019 pneumococcal conjuga te vaccine, 13 valent Kirk Mercado MD Work Phone: [employer] 07-25-2013 pneumococcal Conjuga te, unspecified formulation Kirk Mercado MD Work Phone: [facility], [employer] [facility], [facility]. 07-25-2013 pneumococcal polysaccharide vaccine, 23 valent Kirk Mercado MD Work Phone: [facility], [facility]. Payers Date Payer Category Payer Medicare [id number] 2021 Medicare MEDICARE ANTHEM HMO OR PPO MEDICARE ANTHEM HMO OR PPO [id number] 2021-Present [address] [place] [address] [id number] 2021 Medicare [id number] 2017 Unknown 1953 Unknown [id number] 1953 Unknown [id number] 1953 Unknown [id number] 1953 Unknown [id number] 1953 Unknown [id number] 1953 Unknown [id number] 1953 Unknown [id number] 1953 Unknown [id number] 1953 Unknown [id number] 1953 Unknown [id number] 1953 Unknown [id number] Social History Date Type Detail Facility Start: 06-12-2022 Tobacco smoking stat us NHIS Ex-smoker [facility] Start: 06-17-1972 End: 11-30-1973 History of tobacco use Current smoker [facility] Start: 06-17-1972 End: 11-30-1973 History of tobacco use Cigarette Smoker [facility] Start: 06-12-2022 End: 06-17-2023 Cigarettes smoked current (pack per day) - Reported 0.5 [facility] Start: 06-12-2022 Tobacco use and exposure Smoke less tobacco non-user [facility] Start: 06-12-2022 End: 06-17-2023 Alcohol intake Ex-drinker (finding) [facility] Start: 12-19-2021 History SDOH Alcohol Comment quit drinking 08/2021 [facility] Start: 06-12-2022 Tobacco Comment less than 1 pack a d ay [facility] Start: 1955 Sex Assigned At Not on file O SOLIS [facility] Start: 06-17-2023 Tobacco use panel [facility] Adolescent depressio n screening assessment 0 [facility] Start: 08-20-2017 Gender identity Identifies as female gender (finding) [facility] Start: 12-11-2020 Sexual orientation Heterosexual (fin ding) [facility] Full-time. [employer] [facility] Former smoker. [employer] [facility] [employer] Medical Equipment Procedure Code Equipment Code Equipment Origin al Text Equipment Identifier Dates Mesh Patch Soft Tissue [id number] - [id number] Start: 11-17-2018 Goals Date Patient Goal [...] nodes. 10/2018: Bilateral type 1 thyroplasty w/ [place]-Obdulio Implantation (Dr. White) 12/07/2019: Neck US without [...] 9.2 12/09/2021 0.6 <0.2 7.7 (different assay, [facility]). 05/2022 0.03 <0.2 7.7 (same assay as in Nov 2021, [facility]) 05/2023 0.4 <0.1 1.6 (Adrien) She is [...] Right; Surgeon: Eber Wadsworth MD; [facility] OR THYROIDECTOMY SUBTOTAL Left 11/17/2017 Laterality: Left; Surgeon: Eber Wadsworth MD; [facility] OR THYROIDECTOMY TOTAL N/A 11/17/2017 Laterality: N/A; Surgeon: Eber Wadsworth MD; Location: [facility] MAIN OR ANKLE SURGERY HAND SURGERY KNEE [...] 1 year error documented in this encounter [facility] Instructions 06-17-2023 Patient Instructions Note Date & Type Note Facility 06-17-2023 Instructions Ani Dodd RN - 06/17/2023 11:40 AM EDT Labs in 1 year. RTC after that documented in this encounter [facility] Instructions 06-12-2022 Patient Instructions Note Date & Type Note Facility 06-12-2022 Instructions Armond Mosquera MD - 06/12/2022 11:38 AM EDT Labs in 6 week (TSH and FT4) outside, entered. Labs in 1 year (TSH, FT4 and Tg) outside, entered RTC in 1 year 1 week after the labs in 1 year documented in this encounter [facility] History of Present illness Narrative 06-12-2022 [...] nodes. 10/2018: Bilateral type 1 thyroplasty w/ [place]-Obdulio Implantation (Dr. White) 12/07/2019: Neck US without [...] 9.2 12/09/2021 0.6 <0.2 7.7 (different assay, [facility]). 05/2022 0.03 <0.2 7.7 (same assay as in Nov 2021, [facility]) She is generally feeling well. Main symptom [...] Right; Surgeon: Eber Wadsworth MD; [facility] MA[facility] OR THYROIDECTOMY SUBTOTAL Left 11/17/2017 Laterality: Left; Surgeon: Eber Wadsworth MD; [facility] MA[facility] OR THYROIDECTOMY TOTAL N/A 11/17/2017 Laterality: N/A; Surgeon: Eber Wadsworth MD; Location: [facility] MAIN OR ANKLE SURGERY HAND SURGERY KNEE [...] No suspicious nodes documented in this encounter [facility] Evaluation note Note Date & Type Note Facility documented in this encounter [facility] Evaluation note Note Date & Type Note Facility documented in this encounter [facility] Summary Purpose Family History No Family History [...] FoundDocuments on File Type Date Recorded Patient Leave Coordinator Expl anation HealthCare Power of [employer] Techn[employer] 12/18/2016 Advance Directives/Living Will 12/18/2016 Latest Code Status on File Code Status Date Activated Date Inactivated Comments Full Code 11/17/2018 7:35 AM Full Code 01/14/2018 6:10 PM 11/17/2018 7:35 AM Full Code 01/14/2018 9:22 AM 01/14/2018 6:10 PM Full Code 11/17/2017 12:15 PM 11/18/2017 12:13 PM Full Code 11/17/2017 6:20 AM 11/17/2017 12:15 PM Documents on File Type Date Recorded Patient Leave Coordinator Expl anation HealthCare Power of [employer] Research Technician 12/18/2016 Advance Directives/Living Will 12/18/2016 Latest Code [...] ENDOCRINOLOGY CLINIC Armond Mosquera MD [address] [facility] [address] [place] [address] Referral ID Status Reason Start Date Expiration Date V isits Requested Visits Authorized [id number] New Request 06/12/2022 07/07/2023 1 1 Additional Source Comments INFORMATION SOURCE (unrecogn ized section and content) DATE CREATED AUTHOR AUTHOR'S ORGANIZ ATION 12/12/2021 [facility] DATE CREATED AUTHOR AUTHOR'S ORGANIZ ATION 08/07/2022 [facility] DATE CREATED AUTHOR AUTHOR'S ORGANIZ ATION 06/11/2023 [facility] DATE CREATED AUTHOR AUTHOR'S ORGANIZ ATION 10/07/2023 [facility] DATE CREATED AUTHOR AUTHOR'S ORGANIZ ATION 12/23/2023 [facility] Reason for Visit (unrecogniz ed section and content) Reason Comments Follow-up Routine follow-up wi th mild weight gain. No other concerns noted today. Care Teams (unrecognized sec tion and content) [employer] Relationship Specialty Start Date End Date Kirk Mercado MD [address] [place] [id number] [place] [id number] PCP - General Family Medicine 08/25/17 Osmar Walker MD [address] [place] [id number] Otolaryngology 11/03/17 Chuck Suarez MD [address] [place] [address] Hematology 02/15/18 FOR RECORDS PERTAINING TO PATIENTS [...] BE BASED ON THE PRIMARY CLINICAL RECORDS. [facility] [employer] [facility]. provides no warranty or guarantee of the accuracy or completeness of information in this document.
[2023-12-30] MEDS: oxyCODONE 5 MG Tablet PO (21:06)
--- OUTSIDE RECORDS SUMMARY | 2023-12-30 21:10 | XMS RPT_ITS | CCD ---
Author Name Unknown Address [address] [place] [address] Organization [facility] Care Team Providers Care Wiring Technician Name Role Phone Osmar Walker Unavailable Unavailable [...] Mercado MD Unavailable Dr. Jaycob Spencer Unavailable [phone] [facility], . Unavailable Dr. Bryn Solano MD Unavailable [facility] Unavailable [facility], . Ml office Unavailable [facility] Unavailable Dr. Chuck Suarez MD Unavailable [phone] Amie BOOTH, Yarelis Unavailable Unavailable Sasha SUPERVISOR AGENCY APPOINTMENTS, Brenda Unavailable Faulkner PA-C, Nora J Unavailable Peter SUPERVISOR AGENCY APPOINTMENTS, Anna E Unavailable Unavailable Cameron HARDIN, Marjorie Unavailable Unavailable Hudson SUPERVISOR AGENCY APPOINTMENTS, Margo Unavailable Unavailable Joseph BERNAL, Morteza Fernandez Unavailable Pelon LIVE-C, Luke E Unavailable Pelon RN, Talita Moody Unavailable Unavail able Umberto SUPERVISOR AGENCY APPOINTMENTS, Milady Unavailable Unavailable Nely BOOTH, Nadja Fernandez Unavailable Unavaila ble Mutersbaugh SUPERVISOR AGENCY APPOINTMENTS, Shraddha K Unavailable Unavai labanu Washington PA-C, Maria M J Unavailable Christine FITNESS ATTENDANT, Esther Unavailable Unavailable Valentina SUPERVISOR AGENCY APPOINTMENTS, Lore M Unavailable Unavailab anu Bailey LPN, Joanne Aguilar Unavailable Unavailab anu Sanchez MD, Imtiaz Fernandez Unavailable Jennifer Cole Unavailable Unavailable Lacey SUPERVISOR AGENCY APPOINTMENTS, Mary Unavailable Unavailabl e Unavailable Unavailable ED [...] to adverse reactions to drug 8 Swelling [facility] (2 sources) Sulfonamides (Antibiotic) Propensity to adverse reactions to drug 7 Shortness of Breath [facility] (6 sources) Lisinopril Drug Allergy [employer].; [employer]. (6 sources) Penicillin V Drug Allergy [employer].; [employer]. (1 source) [employer].; [employer]. (1 source) [employer].; [employer]. (1 source) [employer].; [employer]. (1 source) [employer].; [employer]enSa, [employer]. (1 source) [employer].; [employer]. (1 source) [employer].; A[employer]. Medications Current Medications Medication Drug Class(es) Dates [...] aftercare (20 sources) Drug indicated; Translations: [Other prison (current) drug therapy] 03-19-2022 Episodic Other aftercare [...] Body height 163.83 cm Joanne Bailey LPN [facility], Inc.; [employer], [employer]. 11-16-2023 15:40-0500 Body mass index (BMI) [Ratio] 34.64 kg/m2 MelizaLauren Bailey SUPERVISOR AGENCY APPOINTMENTS [facility], Inc.; [employer], Inc. 11-16-2023 15:40-0500 Body surface area Derived from formula 1.99 m2 [facility] Leo SUPERVISOR AGENCY APPOINTMENTS [employer] [facility], Inc.; [employer], [employer]. 11-16-2023 15:40-0500 Body weight 92.99 kg Joanne Bailey SUPERVISOR AGENCY APPOINTMENTS [employer] [facility], Inc.; [employer], Inc. 11-16-2023 15:40-0500 Diastolic blood pressure 75 mm[Hg] MelizaLauren Bailey SUPERVISOR AGENCY APPOINTMENTS [place] [employer] [facility], Inc.; [employer], [employer]. 11-16-2023 15:40-0500 Heart rate 72 /min [facility] Leo SUPERVISOR AGENCY APPOINTMENTS [employer] [facility], Inc.; [employer], [employer]. 11-16-2023 15:40-0500 Systolic blood pressure 131 mm[Hg] MelizaLauren Bailey SUPERVISOR AGENCY APPOINTMENTS [place] [employer] [facility], Inc.; [employer], Inc. 10-23-2023 09:28-0500 Body height 163.83 cm Marjorie Barnes MA [employer] [facility], [employer].; [employer], [employer]. 10-23-2023 09:28-0500 Body mass index (BMI) [Ratio] 34.64 kg/m2 Marjorie Barnes MA [facility], Inc.; [employer], Inc. 10-23-2023 09:28-0500 Body surface area Derived from formula 1.99 m2 Marjorie Cameron HARDIN [facility], Inc.; [employer], Inc. 10-23-2023 09:28-0500 Body weight 92.99 kg Marjorie Cameron HARDIN [place] [employer] [facility], Inc.; [employer], Inc. 10-23-2023 09:28-0500 Diastolic blood pressure 81 mm[Hg] Marjorie Barnes MA [facility], Inc.; [employer], Inc. 10-23-2023 09:28-0500 Heart rate 71 /min Marjorie Barnes MA [facility], Inc.; [employer], Inc. 10-23-2023 09:28-0500 Systolic blood pressure 150 mm[Hg] Marjorie Barnes MA [facility], Inc.; [employer], Inc. 10-20-2023 09:14-0500 Body height 163.83 cm MelizaLauren Bailey LPN [employer] [facility], Inc.; [employer], Inc. 10-20-2023 09:14-0500 Body mass index (BMI) [Ratio] 34.31 kg/m2 Joanne Bailey LPN [employer] [facility], Inc.; [employer], Inc. 10-20-2023 09:14-0500 Body surface area Derived from formula 1.98 m2 Joanne Bailey SUPERVISOR AGENCY APPOINTMENTS [employer] [facility], Inc.; [employer], Inc. 10-20-2023 09:14-0500 Body weight 92.08 kg Joanne Bailey SUPERVISOR AGENCY APPOINTMENTS [employer] [facility], Inc.; [employer], Inc. 10-20-2023 09:14-0500 Diastolic blood pressure 80 mm[Hg] Joanne Bailey LPN [employer] [facility], Inc.; [employer], Inc. 10-20-2023 09:14-0500 Heart rate 56 /min Joanne Bailey LPN [employer], Inc.; [employer], Inc. 10-20-2023 09:14-0500 Systolic blood pressure 124 mm[Hg] Joanne Bailey SUPERVISOR AGENCY APPOINTMENTS [facility], Inc.; [employer] [facility], Inc. 10-09-2023 11:35-0500 Body height 163.83 cm Lore Choulabach [facility], Inc.; [employer], Inc. 10-09-2023 11:35-0500 Body mass index (BMI) [Ratio] 34.31 kg/m2 Lore Perez Valentina [facility], Inc.; [employer], Inc. 10-09-2023 11:35-0500 Body surface area Derived from formula 1.98 m2 Lore Perez Valentina [facility] [employer] [facility] Inc.; [employer] Inc. 10-09-2023 11:35-0500 Body weight 92.08 kg Lore M Valentina [facility] [employer] [facility] Inc.; [employer]. 10-09-2023 11:35-0500 Diastolic blood pressure 69 mm[Hg] Lore M Valentina [facility] [employer] [facility].; [employer], [employer]. 10-09-2023 11:35-0500 Heart rate 68 /min Lore Perez [facility].; [employer]. 10-09-2023 11:35-0500 Systolic blood pressure 105 mm[Hg] Lore M Valentina [facility] Inc.; [employer] [facility]. 10-05-2023 09:12-0500 Body height 163.83 cm Nadja Mckay RN [place] [employer] [facility].; [employer]. 10-05-2023 09:12-0500 Body mass index (BMI) [Ratio] 34.31 kg/m2 Nadja Mckay RN [place] [employer] [facility].; [employer]. 10-05-2023 09:12-0500 Body surface area Derived from formula 1.98 m2 Nadja Mckay RN [place] [employer] [facility].; [employer]. 10-05-2023 09:12-0500 Body temperature 98.6 [degF] Nadja Mckay RN [facility], Inc.; [employer], Inc. 10-05-2023 09:12-0500 Body weight 92.08 kg Nadja Mckay RN [facility], [facility].; [employer], Inc. 10-05-2023 09:12-0500 Diastolic blood pressure 68 mm[Hg] Nadja Mckay RN [facility], Inc.; [employer], Inc. 10-05-2023 09:12-0500 Heart rate 73 /min Nadja Mckay RN [facility], [facility].; [employer], Inc. 10-05-2023 09:12-0500 Systolic blood pressure 111 mm[Hg] Nadja Mckay RN [place] [employer] [facility], Inc.; [employer], Inc. 09-28-2023 08:59-0400 Body height 163.83 cm Joanne Bailey LPN [facility], Inc.; [employer], Inc. 09-28-2023 08:59-0400 Body mass index (BMI) [Ratio] 33.8 kg/m2 Meliza Stuckey [facility], Inc.; [employer], Inc. 09-28-2023 08:59-0400 Body surface area Derived from formula 1.97 m2 Joanne Bailey LPN [facility], Inc.; [employer], Inc. 09-28-2023 08:59-0400 Body weight 90.72 kg Joanne Bailey LPN [place] [employer] [facility], Inc.; [employer], Inc. 09-28-2023 08:59-0400 Diastolic blood pressure 72 mm[Hg] Joanne Bailey LPN [place] [employer] [facility], Inc.; [employer], [employer]. 09-28-2023 08:59-0400 Heart rate 92 /min Joanne Bailey LPN [place] [employer] [facility], [facility].; [employer], Inc. 09-28-2023 08:59-0400 Systolic blood pressure 152 mm[Hg] Joanne Bailey LPN [place] [employer] [facility], Inc.; [employer], Inc. 06-17-2023 11:51-0400 Body height 161.3 cm Armond Mosquera MD Work Phone: [facility] 06-17-2023 11:51-0400 Body mass index (BMI) [Ratio] 35.33 kg/m2 Armond Mosquera MD Work Phone: [facility] 06-17-2023 11:51-0400 Body temperature 97.9 [degF] Armond Mosquera MD Work Phone: [facility] 06-17-2023 11:51-0400 Body weight 91.9 kg Armond Mosquera MD Work Phone: [facility] 06-17-2023 11:51-0400 Diastolic blood pressure 72 mm[Hg] Armond Mosquera MD Work Phone: [facility] 06-17-2023 11:51-0400 Heart rate 65 /min Armond Mosquera MD Work Phone: [facility] 06-17-2023 11:51-0400 Respiratory rate 18 /min Armond Mosquera MD Work Phone: [facility] 06-17-2023 11:51-0400 SaO2% (BldA) [Mass fraction] 97 % Armond Mosquera MD Work Phone: [facility] 06-17-2023 11:51-0400 Systolic blood pressure 152 mm[Hg] Armond Mosquera MD Work Phone: [facility] 04-20-2023 08:01-0400 Body height 163.83 cm Kirk Mercado MD Work Phone: [facility]. 04-20-2023 08:01-0400 Body mass index (BMI) [Ratio] 33.8 kg/m2 Kirk Mercado MD Work Phone: [facility].; [employer]. 04-20-2023 08:01-0400 Body surface area Derived from formula 1.97 m2 Kirk Mercado MD Work Phone: [employer].; [employer] 04-20-2023 08:01-0400 Body weight 90.72 kg Kirk Mercado MD Work Phone: [employer].; [employer] 04-20-2023 08:01-0400 Diastolic blood pressure 80 mm[Hg] Kirk Mercado MD Work Phone: [employer].; [employer]. 04-20-2023 08:01-0400 Heart rate 57 /min Kirk Mercado MD Work Phone: [employer].; [employer]. 04-20-2023 08:01-0400 Systolic blood pressure 134 mm[Hg] Kirk Meracdo MD Work Phone: [employer].; [employer]. 12-24-2022 10:11-0500 Body height 163.83 cm Lore Montgomery [facility] [employer] 12-24-2022 10:11-0500 Body mass index (BMI) [Ratio] 33.46 kg/m2 Lore Montgomery [facility] [employer] 12-24-2022 10:11-0500 Body surface area Derived from formula 1.96 m2 Lore Montgomery SUPERVISOR AGENCY APPOINTMENTS [employer].; [employer]. 12-24-2022 10:11-0500 Body weight 89.81 kg Lore Montgomery SUPERVISOR AGENCY APPOINTMENTS [employer].; [employer]. 12-24-2022 10:11-0500 Diastolic blood pressure 74 mm[Hg] Lore Montgomery LPN [employer].; [employer] 12-24-2022 10:11-0500 Heart rate 76 /min Lore Montgomery LPN [employer].; [employer] 12-24-2022 10:11-0500 Systolic blood pressure 111 mm[Hg] Lore Montgomery SUPERVISOR AGENCY APPOINTMENTS [employer].; [employer], Inc. 11-12-2022 11:23-0500 Body height 163.83 cm Kirk Mercado MD Work Phone: [employer].; [employer] 11-12-2022 11:23-0500 Body mass index (BMI) [Ratio] 32.95 kg/m2 Kirk Mercado MD Work Phone: [employer].; [employer]. 11-12-2022 11:23-0500 Body surface area Derived from formula 1.95 m2 Kirk Mercado MD Work Phone: [employer].; [employer] 11-12-2022 11:23-0500 Body weight 88.45 kg Kirk Mercado MD Work Phone: [employer].; [employer]. 11-12-2022 11:23-0500 Diastolic blood pressure 78 mm[Hg] Kirk Mercado MD Work Phone: [employer].; [employer], Inc. 11-12-2022 11:23-0500 Heart rate 67 /min Kirk Mercado MD Work Phone: [employer].; [employer] 11-12-2022 11:23-0500 Systolic blood pressure 145 mm[Hg] Kirk Mercado MD Work Phone: [employer].; [employer]. 11-11-2022 10:10-0500 Diastolic blood pressure 78 mm[Hg] Brenda Baez LPN Work Phone: [employer].; [employer], Inc. Work Phone: 11-11-2022 10:10-0500 Heart rate 58 /min Brendasukhi Baez LPN Work Phone: [employer] [place] [employer] [facility], [employer].; [employer], Inc. Work Phone: 11-11-2022 10:10-0500 Systolic blood pressure 146 mm[Hg] Brenda Baez LPN Work Phone: [employer] [place] [employer] [facility], Inc.; [employer], Inc. Work Phone: 08-25-2022 15:01-0400 Body height 163.83 cm Joanne Bailey [facility], Inc.; [employer], Inc. 08-25-2022 15:01-0400 Body mass index (BMI) [Ratio] 33.63 kg/m2 Joanne Bailey [facility] [employer] [facility], Inc.; [employer], Inc. 08-25-2022 15:01-0400 Body surface area Derived from formula 1.96 m2 Joanne [facility], Inc.; [employer], Inc. 08-25-2022 15:01-0400 Body weight 90.27 kg Joanne Bailey SUPERVISOR AGENCY APPOINTMENTS [employer] [facility], Inc.; [employer], Inc. 08-25-2022 15:01-0400 Diastolic blood pressure 79 mm[Hg] Joanne Bailey SUPERVISOR AGENCY APPOINTMENTS [place] [employer] [facility], Inc.; [employer], Inc. 08-25-2022 15:01-0400 Heart rate 74 /min Joanne Bailey [facility], Inc.; [employer], Inc. 08-25-2022 15:01-0400 Systolic blood pressure 161 mm[Hg] Joanne Bailey MONICA [employer] [facility], Inc.; [employer], Inc. 06-18-2022 10:27-0400 Body height 163.83 cm Milady Shipman SUPERVISOR AGENCY APPOINTMENTS [employer] [facility], Inc.; [employer], Inc. 06-18-2022 10:27-0400 Body mass index (BMI) [Ratio] 33.8 kg/m2 Milady Shipman SUPERVISOR AGENCY APPOINTMENTS [employer] [facility], Inc.; [employer], Inc. 06-18-2022 10:27-0400 Body surface area Derived from formula 1.97 m2 Milady Shipman LPN [facility].; [facility] 06-18-2022 10:27-0400 Body weight 90.72 kg Milady Shipman LPN [facility].; [facility] 06-18-2022 10:27-0400 Diastolic blood pressure 77 mm[Hg] Milady Shipman LPN [facility].; [facility]. 06-18-2022 10:27-0400 Heart rate 68 /min Milady Shipman LPN [facility].; [facility] 06-18-2022 10:27-0400 Systolic blood pressure 138 mm[Hg] Milady Shipman LPN [facility].; [facility]. 06-12-2022 11:02-0400 Body height 161.3 cm Armond Mosquera MD Work Phone: [facility] 06-12-2022 11:02-0400 Body mass index (BMI) [Ratio] 34.61 kg/m2 Armond Mosquera MD Work Phone: [facility] 06-12-2022 11:02-0400 Body temperature 98.1 [degF] Armond Mosquera MD Work Phone: [facility] 06-12-2022 11:02-0400 Body weight 90.04 kg Armond Mosquera MD Work Phone: [facility] 06-12-2022 11:02-0400 Diastolic blood pressure 61 mm[Hg] Armond Mosquera MD Work Phone: [facility] 06-12-2022 11:02-0400 Heart rate 67 /min Armond Mosquera MD Work Phone: [facility] 06-12-2022 11:02-0400 Respiratory rate 18 /min Armond Mosquera MD Work Phone: [facility] 06-12-2022 11:02-0400 SaO2% (BldA) [Mass fraction] 96 % Armond Mosquera MD Work Phone: [facility] 06-12-2022 11:02-0400 Systolic blood pressure 137 mm[Hg] Armond Mosquera MD Work Phone: [facility] 03-19-2022 14:22-0400 Body height 163.83 cm Esther [facility], Inc.; [employer], Inc. 03-19-2022 14:22-0400 Body mass index (BMI) [Ratio] 33.97 kg/m2 Esther King [facility] Inc.; [employer], Inc. 03-19-2022 14:22-0400 Body surface area Derived from formula 1.97 m2 Esther King [facility], Inc.; [employer], Inc. 03-19-2022 14:22-0400 Body weight 91.17 kg Esther King [facility] Inc.; [employer], Inc. 03-19-2022 14:22-0400 Diastolic blood pressure 77 mm[Hg] Esther King [facility] Inc.; [employer], Inc. 03-19-2022 14:22-0400 Heart rate 67 /min Esther King [facility] Inc.; [employer], Inc. 03-19-2022 14:22-0400 Systolic blood pressure 129 mm[Hg] Esther King [facility] Inc.; [employer], Inc. 01-14-2022 14:59-0500 Body height 163.83 cm MelizaLauren Bailey [facility] [employer], Inc. 01-14-2022 14:59-0500 Body mass index (BMI) [Ratio] 34.14 kg/m2 Meliza Leo [facility] Inc.; [employer], Inc. 01-14-2022 14:59-0500 Body surface area Derived from formula 1.98 m2 [facility] SUPERVISOR AGENCY APPOINTMENTS [employer], Inc.; [employer], Inc. 01-14-2022 14:59-0500 Body temperature 97.9 [degF] Joanne Bailey [facility], Inc.; [employer], Inc. 01-14-2022 14:59-0500 Body weight 91.63 kg Joanne Bailey [facility], Inc.; [employer], Inc. 01-14-2022 14:59-0500 Diastolic blood pressure 64 mm[Hg] Joanne Bailey [facility], Inc.; [employer], Inc. 01-14-2022 14:59-0500 Heart rate 74 /min Joanne Bailey [facility], Inc.; [employer], Inc. 01-14-2022 14:59-0500 Systolic blood pressure 142 mm[Hg] Joanne Bailey [facility] [employer] [facility], Inc.; [employer], Inc. 12-18-2021 09:16-0500 Body height 163.83 cm Esther Christine [facility].; [employer], Inc. 12-18-2021 09:16-0500 Body mass index (BMI) [Ratio] 34.14 kg/m2 Esther Christine [facility] [employer] [facility], Inc.; [employer], Inc. 12-18-2021 09:16-0500 Body surface area Derived from formula 1.98 m2 Esther King [facility] [employer] [facility], Inc.; [employer], Inc. 12-18-2021 09:16-0500 Body weight 91.63 kg Esther Christine [facility] [employer] [facility], [facility].; [employer], Inc. 12-18-2021 09:16-0500 Diastolic blood pressure 80 mm[Hg] Esther Vaughanr [facility], Inc.; [employer], Inc. 12-18-2021 09:16-0500 Heart rate 64 /min Esther Christine [facility] [employer] [facility], Inc.; [employer], Inc. 12-18-2021 09:16-0500 Systolic blood pressure 129 mm[Hg] Esther Vaughanr [facility].; [employer]. 06-18-2021 13:26-0400 Body height 163.83 cm Kirk Mercado MD Work Phone: [employer].; [employer], Inc. 06-18-2021 13:26-0400 Body mass index (BMI) [Ratio] 33.63 kg/m2 Kirk Mercado MD Work Phone: [employer].; [employer], Inc. 06-18-2021 13:26-0400 Body surface area Derived from formula 1.96 m2 Kirk Mercado MD Work Phone: [employer].; [employer] 06-18-2021 13:26-0400 Body weight 90.27 kg Kirk Mercado MD Work Phone: [employer].; [employer], Inc. 06-18-2021 13:26-0400 Diastolic blood pressure 65 mm[Hg] Kirk Mercado MD Work Phone: [employer].; [employer] 06-18-2021 13:26-0400 Heart rate 69 /min Kirk Mercado MD Work Phone: [employer].; [employer], Inc. 06-18-2021 13:26-0400 Systolic blood pressure 135 mm[Hg] Kirk Mercado MD Work Phone: [employer].; [employer], Inc. 02-19-2021 10:44-0400 Body height 163.83 cm [facility].; [employer], Inc. 02-19-2021 10:44-0400 Body mass index (BMI) [Ratio] 33.63 kg/m2 [facility] Inc.; [employer], Inc. 02-19-2021 10:44-0400 Body surface area Derived from formula 1.96 m2 [facility] Inc.; [employer], Inc. 02-19-2021 10:44-0400 Body weight 90.27 kg Joanne Bailey LPN [facility], Inc.; [employer] [facility], Inc. 02-19-2021 10:44-0400 Diastolic blood pressure 75 mm[Hg] Joanne Bailey [facility], Inc.; [employer] [facility], Inc. 02-19-2021 10:44-0400 Heart rate 60 /min Joanne Bailey [facility] Inc.; [employer] [facility], Inc. 02-19-2021 10:44-0400 Systolic blood pressure 136 mm[Hg] Joanne Bailey [facility] Inc.; [employer] [facility], Inc. 01-28-2021 10:34-0500 Body height 163.83 cm Joanne Bailey SUPERVISOR AGENCY APPOINTMENTS [facility], Inc.; Yu [employer], Inc. 01-28-2021 10:34-0500 Body mass index (BMI) [Ratio] 33.63 kg/m2 Joanne Bailey [facility] Inc.; [employer] [facility], Inc. 01-28-2021 10:34-0500 Body surface area Derived from formula 1.96 m2 Meliza Stuckey [facility], Inc.; [employer] [facility], Inc. 01-28-2021 10:34-0500 Body weight 90.27 kg Joanne Bailey LPN [facility], Inc.; [employer] [facility], Inc. 01-28-2021 10:34-0500 Diastolic blood pressure 80 mm[Hg] Joanne Bailey SUPERVISOR AGENCY APPOINTMENTS [facility], Inc.; [employer] [facility], Inc. 01-28-2021 10:34-0500 Heart rate 75 /min MelizaLauren Bailey [facility], Inc.; Yu [employer], Inc. 01-28-2021 10:34-0500 Systolic blood pressure 129 mm[Hg] Joanne Bailey SUPERVISOR AGENCY APPOINTMENTS [facility], Inc.; Yu [employer], Inc. 09-21-2020 09:06-0400 Body height 163.83 cm Nadja Mckay RN [facility], [facility].; [employer] [facility], [facility]. 09-21-2020 09:06-0400 Body mass index (BMI) [Ratio] 34.48 kg/m2 Nadja Mckay RN [place] [employer] [facility].; [employer] [facility]. 09-21-2020 09:06-0400 Body surface area Derived from formula 1.98 m2 Nadja Mckay RN [employer] [facility].; [employer] [facility]. 09-21-2020 [id number] Body weight 92.53 kg Nadja Mckay RN [place] [employer] [facility].; [employer] [facility]. 09-21-2020 [id number] Diastolic blood pressure 75 mm[Hg] Nadja Mckay RN [employer] [facility].; Yu [employer] [facility]. 09-21-2020 09:060400 Heart rate 72 /min Nadja Mckay RN [employer] [facility].; [employer]. 09-21-2020 09:060400 Systolic blood pressure 130 mm[Hg] Nadja Mckay RN [employer] [facility].; [employer] [facility]. 05-14-2020 [id number] Body height 163.83 cm Nadja Mckay RN [employer] [facility] [facility].; [employer]. 05-14-2020 09:21-0400 Body mass index (BMI) [Ratio] 35.32 kg/m2 Nadja Mckay RN [employer] [facility].; [employer] [facility]. 05-14-2020 09:[id number] Body surface area Derived from formula 2 m2 Nadja Mckay RN [employer] [facility].; [employer] [facility]. 05-14-2020 [id number]:[id number] Body weight 94.8 kg Nadja Mckay RN [employer] [facility].; [employer] [facility]. 05-14-2020 09:21-0400 Diastolic blood pressure 78 mm[Hg] Nadja Mckay RN [employer] [facility].; [employer]. 05-14-2020 09:21-0400 Heart rate 72 /min Nadja Mckay RN [employer].; [employer]. 05-14-2020 09:21-0400 Systolic blood pressure 145 mm[Hg] Nadja Mckay RN [employer].; [employer] 04-11-2020 07:08-0400 Body height 163.83 cm Kirk Mercado MD Work Phone: [employer].; [employer] 04-11-2020 07:08-0400 Body mass index (BMI) [Ratio] 34.98 kg/m2 Kirk Mercado MD Work Phone: [employer].; [employer]. 04-11-2020 07:08-0400 Body surface area Derived from formula 2 m2 Kirk Mercado MD Work Phone: [employer].; [employer]. 04-11-2020 07:08-0400 Body weight 93.9 kg Kirk Mercado MD Work Phone: [employer].; [employer]. 04-11-2020 07:08-0400 Diastolic blood pressure 80 mm[Hg] Kirk Mercado MD Work Phone: [employer].; [employer]. 04-11-2020 07:08-0400 Heart rate 76 /min Kirk Mercado MD Work Phone: [employer].; [employer]. 04-11-2020 07:08-0400 Systolic blood pressure 136 mm[Hg] Kirk Mercado MD Work Phone: [employer].; [employer]. 08-09-2019 14:13-0400 Body height 163.83 cm Kirk Mercado MD Work Phone: [employer].; [employer] 08-09-2019 14:13-0400 Body mass index (BMI) [Ratio] 35.15 kg/m2 Kirk Mercado MD Work Phone: [employer].; [employer]. 08-09-2019 14:13-0400 Body surface area Derived from formula 2 m2 Kirk Mercado MD Work Phone: [employer] 08-09-2019 14:13-0400 Body weight 94.35 kg Kirk Mercado MD Work Phone: [employer] 08-09-2019 14:13-0400 Diastolic blood pressure 76 mm[Hg] Kirk Mercado MD Work Phone: [employer] 08-09-2019 14:13-0400 Heart rate 76 /min Kirk Mercado MD Work Phone: [employer] 08-09-2019 14:13-0400 Systolic blood pressure 132 mm[Hg] Kirk Mercado MD Work Phone: [employer] 05-24-2019 11:09-0400 Body height 163.83 cm Joanne Bailey [facility] [employer] 05-24-2019 11:09-0400 Body mass index (BMI) [Ratio] 34.64 kg/m2 Joanne Bailey MONICA [employer], [employer].; [employer] 05-24-2019 11:09-0400 Body surface area Derived from formula 1.99 m2 Joanne Bailey [employer] 05-24-2019 11:09-0400 Body weight 92.99 kg Joanne Bailey [employer] 05-24-2019 11:09-0400 Diastolic blood pressure 78 mm[Hg] Joanne Bailey MONICA [employer].; [employer] 05-24-2019 11:09-0400 Heart rate 103 /min Joanne Dislaey [employer] 05-24-2019 11:09-0400 Systolic blood pressure 131 mm[Hg] Joanne Bailey SUPERVISOR [employer]MENTS [employer] 11-26-2018 14:45-0500 Body height 163.83 cm Shraddha Jag Mutkingsleybaugh SUPERVISOR [employer]ENC[employer]MENTS [employer] 11-26-2018 14:45-0500 Body mass index (BMI) [Ratio] 34.98 kg/m2 Shraddha K Mutersbaugh SUPERVISOR [employer] 11-26-2018 14:45-0500 Body surface area Derived from formula 2 m2 Shraddha K Mutersbaugh SUPERVISOR [employer]ENC[employer]MENTS [employer].; [employer], [employer]. 11-26-2018 14:45-0500 Body weight 93.9 kg Shraddha K Mutersbaugh SUPERVISOR AGENCY [employer]MENTS [employer], [employer]. 11-26-2018 14:45-0500 Diastolic blood pressure 76 mm[Hg] Shraddha K Mutersbaugh SUPERVISOR [employer]ENC[employer]MENTS [employer], [employer]. 11-26-2018 14:45-0500 Heart rate 89 /min Shraddha K Mutersbaugh SUPERVISOR [employer]MENTS [employer].; [employer], [employer]. 11-26-2018 14:45-0500 Systolic blood pressure 162 mm[Hg] Shraddha K Mutersbaugh SUPERVISOR [employer].; [employer]. 07-14-2018 06:46-0400 Body height 163.83 cm Kirk Mercado MD Work Phone: [employer].; [employer]. 07-14-2018 06:46-0400 Body mass index (BMI) [Ratio] 34.81 kg/m2 Kirk Mercado MD Work Phone: [employer].; [employer] 07-14-2018 06:46-0400 Body surface area Derived from formula 1.99 m2 Kirk Mercado MD Work Phone: [employer].; [employer]. 07-14-2018 06:46-0400 Body weight 93.44 kg Kirk Mercado MD Work Phone: [employer].; [employer]. 07-14-2018 06:46-0400 Diastolic blood pressure 71 mm[Hg] Kirk Mercado MD Work Phone: [employer].; [employer] 07-14-2018 06:46-0400 Heart rate 67 /min Kirk Mercado MD Work Phone: [employer].; [employer]. 07-14-2018 06:46-0400 Systolic blood pressure 130 mm[Hg] Kirk Mercado MD Work Phone: [employer].; [employer]. 06-24-2018 11:21-0400 Body height 163.83 cm Shraddha K Mutersbaugh SUPERVISOR [employer]MENTS [employer]. 06-24-2018 11:21-0400 Body mass index (BMI) [Ratio] 34.98 kg/m2 Shraddha K Mutersbaugh SUPER[employer]OR [employer]. 06-24-2018 11:21-0400 Body surface area Derived from formula 2 m2 Shraddha K Mutersbaugh SUPERVISOR [employer]MENTS [employer].; [employer]. 06-24-2018 11:21-0400 Body temperature 100.2 [degF] Shraddha K Mutersbaugh SUPERVISOR [employer]MENTS [employer]. 06-24-2018 11:21-0400 Body weight 93.9 kg Shraddha K Mutersbaugh SUPERVISOR [employer]MENTS [employer].; [employer]. 06-24-2018 11:21-0400 Diastolic blood pressure 76 mm[Hg] Shraddha K Mutersbaugh SUPERVISOR [employer]MENTS [employer]. 06-24-2018 11:21-0400 Heart rate 90 /min Shraddha K Mutersbaugh SUPERVISOR [employer].; [employer]. 06-24-2018 11:21-0400 Systolic blood pressure 146 mm[Hg] Shraddhasa Jag Walker LPN [employer] [facility], Inc.; [employer] 01-25-2018 09:29-0500 Body height 163.83 cm Anna Green LPN [employer].; [employer] 01-25-2018 09:29-0500 Body mass index (BMI) [Ratio] 35.32 kg/m2 Anna Green LPN [employer].; [employer] 01-25-2018 09:29-0500 Body surface area Derived from formula 2 m2 [facility] [employer] 01-25-2018 09:29-0500 Body weight 94.8 kg Anna Green LPN [employer].; [employer] 01-25-2018 09:29-0500 Diastolic blood pressure 76 mm[Hg] Anna Green LPN [employer].; [employer] 01-25-2018 09:29-0500 Heart rate 63 /min [facility] [employer]. 01-25-2018 09:29-0500 Systolic blood pressure 143 mm[Hg] Anna Green LPN [employer], [employer].; [employer] 01-08-2018 13:57-0500 Body height 163.83 cm Kirk Mercado MD Work Phone: [employer].; [employer] 01-08-2018 13:57-0500 Body mass index (BMI) [Ratio] 35.66 kg/m2 Kirk Mercado MD Work Phone: [employer].; [employer] 01-08-2018 13:57-0500 Body surface area Derived from formula 2.01 m2 Kirk Mercado MD Work Phone: [employer].; [employer] 01-08-2018 13:57-0500 Body weight 95.71 kg Kirk Mercado MD Work Phone: [employer].; [employer] 01-08-2018 13:57-0500 Diastolic blood pressure 78 mm[Hg] Kirk Mercado MD Work Phone: [employer].; [employer] 01-08-2018 13:57-0500 Heart rate 66 /min Kirk Mercado MD Work Phone: [employer] 01-08-2018 13:57-0500 Systolic blood pressure 124 mm[Hg] Kirk Mercado MD Work Phone: [employer].; [employer] 12-11-2017 08:51-0500 Body height 163.83 cm Anna Green LPN [employer] 12-11-2017 08:51-0500 Body mass index (BMI) [Ratio] 35.32 kg/m2 Anna Green LPN [employer].; [employer] 12-11-2017 08:51-0500 Body surface area Derived from formula 2 m2 Anna Green SUPERVISOR [employer].; [employer] 12-11-2017 08:51-0500 Body weight 94.8 kg Anna Green LPN [employer].; [employer] 12-11-2017 08:51-0500 Diastolic blood pressure 74 mm[Hg] Anna Green LPN [employer].; [employer] 12-11-2017 08:51-0500 Heart rate 66 /min Anna Green LPN [employer].; [employer] 12-11-2017 08:51-0500 Systolic blood pressure 147 mm[Hg] Anna Green LPN [employer].; [employer] 09-05-2017 09:20-0400 Body height 163.83 cm Yarelis Holloway RN [employer].; [employer] 09-05-2017 09:20-0400 Body mass index (BMI) [Ratio] 34.81 kg/m2 Yarelis Holloway RN [employer] [facility], [facility].; [employer]. 09-05-2017 09:20-0400 Body surface area Derived from formula 1.99 m2 Yarelis Holloway RN [employer] [facility], Inc.; [employer], [employer] 09-05-2017 09:20-0400 Body weight 93.44 kg Yarelis Holloway RN [employer], [employer].; [employer] 09-05-2017 09:20-0400 Diastolic blood pressure 76 mm[Hg] Yarelis Holloway RN [employer].; [employer], [employer]. 09-05-2017 09:20-0400 Heart rate 62 /min Yarelis Holloway RN [employer].; [employer], [employer]. 09-05-2017 09:20-0400 Systolic blood pressure 144 mm[Hg] Yarelis Holloway RN [employer].; [employer]. 07-13-2017 09:06-0400 Body height 163.83 cm Anna Green LPN [employer], [employer].; [employer]. 07-13-2017 09:06-0400 Body mass index (BMI) [Ratio] 35.86 kg/m2 Anna Green LPN [employer].; [employer] 07-13-2017 09:06-0400 Body surface area Derived from formula 2.02 m2 Anna Green LPN [employer].; [employer]. 07-13-2017 09:06-0400 Body weight 96.25 kg Anna Green LPN [employer].; [employer]. 07-13-2017 09:06-0400 Diastolic blood pressure 76 mm[Hg] Anna Green LPN [employer].; [employer], [employer] 07-13-2017 09:06-0400 Heart rate 69 /min Anna Green LPN [employer].; [employer]. 07-13-2017 09:06-0400 Systolic blood pressure 136 mm[Hg] Anna Green LPN [employer] 02-25-2017 07:32-0400 Body height 163.83 cm Kirk Mercado MD Work Phone: [employer].; [employer] 02-25-2017 07:32-0400 Body mass index (BMI) [Ratio] 35.15 kg/m2 Kirk Mercado MD Work Phone: [employer].; [employer] 02-25-2017 07:32-0400 Body surface area Derived from formula 2 m2 Kirk Mercado MD Work Phone: [employer].; [employer]. 02-25-2017 07:32-0400 Body weight 94.35 kg Kirk Mercado MD Work Phone: [employer].; [employer]. 02-25-2017 07:32-0400 Diastolic blood pressure 78 mm[Hg] Kirk Mercado MD Work Phone: [employer].; [employer]. 02-25-2017 07:32-0400 Heart rate 77 /min Kirk Mercado MD Work Phone: [employer].; [employer] 02-25-2017 07:32-0400 Systolic blood pressure 132 mm[Hg] Kirk Mercado MD Work Phone: [employer].; [employer] 07-30-2016 14:17-0400 Body height 163.83 cm [facility] [employer].; [employer]. 07-30-2016 14:17-0400 Body mass index (BMI) [Ratio] 33.12 kg/m2 [facility] [employer] 07-30-2016 14:17-0400 Body surface area Derived from formula 1.95 m2 [facility] [employer].; [employer] 07-30-2016 14:17-0400 Body weight 88.91 kg Joanne Bailey MONICA [employer].; [employer] 07-30-2016 14:17-0400 Diastolic blood pressure 88 mm[Hg] Joanne Bailey MONICA [employer].; [employer], [employer] 07-30-2016 14:17-0400 Heart rate 87 /min Joanne Bailey [employer].; [employer] 07-30-2016 14:17-0400 Systolic blood pressure 162 mm[Hg] Joanne Bailey MONICA [employer].; [employer]. 01-25-2016 10:44-0500 Body height 163.83 cm Lore Montgomery LPN [employer].; [employer] 01-25-2016 10:44-0500 Body mass index (BMI) [Ratio] 33.8 kg/m2 [facility] [employer] 01-25-2016 10:44-0500 Body surface area Derived from formula 1.97 m2 Lore Montgomery LPN [employer].; [employer], [employer]. 01-25-2016 10:44-0500 Body temperature 98 [degF] Lore Montgomery LPN [employer].; [employer] 01-25-2016 10:44-0500 Body weight 90.72 kg Lore Montgomery LPN [employer] 01-25-2016 10:44-0500 Diastolic blood pressure 83 mm[Hg] Lore Montgomery LPN [employer]. 01-25-2016 10:44-0500 Heart rate 65 /min Lore Montgomery LPN [employer]. 01-25-2016 10:44-0500 Systolic blood pressure 137 mm[Hg] Lore Montgomery LPN [employer].; [employer]. 07-30-2015 09:52-0400 Body height 163.83 cm Kirk Mercado MD Work Phone: [employer].; [employer] 07-30-2015 09:52-0400 Body mass index (BMI) [Ratio] 34.14 kg/m2 Kirk Mercado MD Work Phone: [employer].; [employer] 07-30-2015 09:52-0400 Body surface area Derived from formula 1.98 m2 Kirk Mercado MD Work Phone: [employer].; [employer]. 07-30-2015 09:52-0400 Body weight 91.63 kg Kirk Mercado MD Work Phone: [employer].; [employer] 07-30-2015 09:52-0400 Diastolic blood pressure 82 mm[Hg] Kirk Mercado MD Work Phone: [employer].; [employer]. 07-30-2015 09:52-0400 Heart rate 64 /min Kirk Mercado MD Work Phone: [employer].; [employer]. 07-30-2015 09:52-0400 Systolic blood pressure 132 mm[Hg] Kirk Mercado MD Work Phone: [employer].; [employer] 05-16-2015 07:28-0400 Body height 163.83 cm Kirk Mercado MD Work Phone: [employer].; [employer]. 05-16-2015 07:28-0400 Body mass index (BMI) [Ratio] 34.81 kg/m2 iKrk Mercado MD Work Phone: [employer].; [employer] 05-16-2015 07:28-0400 Body surface area Derived from formula 1.99 m2 Kirk Mercado MD Work Phone: [employer].; [employer]. 05-16-2015 07:28-0400 Body weight 93.44 kg Kirk Mercado MD Work Phone: [employer].; [employer] 05-16-2015 07:28-0400 Diastolic blood pressure 88 mm[Hg] Kirk Mercado MD Work Phone: [employer] 05-16-2015 07:28-0400 Heart rate 68 /min Kirk Mercado MD Work Phone: [employer].; [employer] 05-16-2015 07:28-0400 Systolic blood pressure 148 mm[Hg] Kirk Mercado MD Work Phone: [employer].; [employer] 01-15-2015 09:07-0500 Body weight 92.53 kg Anna Green LPN [employer] 01-15-2015 09:07-0500 Diastolic blood pressure 66 mm[Hg] Anna Green LPN [employer], [employer] 01-15-2015 09:07-0500 Heart rate 68 /min Anna Green LPN [employer].; [employer] 01-15-2015 09:07-0500 Systolic blood pressure 133 mm[Hg] Anna Green LPN [employer] 07-10-2014 09:39-0400 Body height 163.83 cm Kirk Mercado MD Work Phone: [employer].; [employer] 07-10-2014 09:39-0400 Body mass index (BMI) [Ratio] 35.49 kg/m2 Kirk Mercado MD Work Phone: [employer].; [employer] 07-10-2014 09:39-0400 Body surface area Derived from formula 2.01 m2 Kirk Mercado MD Work Phone: [employer].; [employer] 07-10-2014 09:39-0400 Body weight 95.26 kg Kirk Mercado MD Work Phone: [employer].; [employer] 07-10-2014 09:39-0400 Diastolic blood pressure 82 mm[Hg] Kirk Mercado MD Work Phone: [employer] 07-10-2014 09:39-0400 Heart rate 77 /min Kirk Mercado MD Work Phone: [employer].; [employer] 07-10-2014 09:39-0400 Systolic blood pressure 150 mm[Hg] Kirk Mercado MD Work Phone: [employer].; [employer] 01-09-2014 09:31-0500 Body weight 98.43 kg Kirk Mercado MD Work Phone: [employer].; [employer] 01-09-2014 09:31-0500 Diastolic blood pressure 73 mm[Hg] Kirk Mercado MD Work Phone: [employer].; [employer] 01-09-2014 09:31-0500 Heart rate 72 /min Kirk Mercado MD Work Phone: [employer].; [employer] 01-09-2014 09:31-0500 Systolic blood pressure 148 mm[Hg] Kirk Mercado MD Work Phone: [employer].; [employer] 11-09-2013 09:31-0500 Body height 163.83 cm Lore Montgomery LPN [employer].; [employer] 11-09-2013 09:31-0500 Body mass index (BMI) [Ratio] 37.01 kg/m2 Lore Montgomery LPN [employer] 11-09-2013 09:31-0500 Body surface area Derived from formula 2.04 m2 Lore Montgomery [employer] 11-09-2013 09:31-0500 Body temperature 97.7 [degF] Lore Perez Valentina ANDERSON [employer] 11-09-2013 09:31-0500 Body weight 99.34 kg Lore Perez Valentina ANDERSON [employer].; [employer] 11-09-2013 09:31-0500 Diastolic blood pressure 87 mm[Hg] Lore Perez Valentina [employer], [employer] 11-09-2013 09:31-0500 Heart rate 78 /min Lore Perez Valentina CORONELN [employer] 11-09-2013 09:31-0500 Systolic blood pressure 187 mm[Hg] Lore Perez Valentina ANDERSON [employer] 07-25-2013 09:02-0400 Body height 163.83 cm Kirk Mercado MD Work Phone: [employer] 07-25-2013 09:02-0400 Body mass index (BMI) [Ratio] 37.35 kg/m2 Kirk Mercado MD Work Phone: [employer].; [employer] 07-25-2013 09:02-0400 Body surface area Derived from formula 2.05 m2 Kirk Mercado MD Work Phone: [employer].; [employer] 07-25-2013 09:02-0400 Body weight 100.25 kg Kirk Mercado MD Work Phone: [employer].; [employer] 07-25-2013 09:02-0400 Diastolic blood pressure 88 mm[Hg] Kirk Mercado MD Work Phone: [employer].; [employer] 07-25-2013 09:02-0400 Heart rate 76 /min Kirk Mercado MD Work Phone: [employer].; [employer] 07-25-2013 09:02-0400 Systolic blood pressure 148 mm[Hg] Kirk Mercado MD Work Phone: [employer] 02-23-2013 09:17-0400 Body height 163.83 cm [facility] [employer] 02-23-2013 09:17-0400 Body mass index (BMI) [Ratio] 37.01 kg/m2 [facility] [employer] 02-23-2013 09:17-0400 Body surface area Derived from formula 2.04 m2 [facility] [employer] 02-23-2013 09:17-0400 Body weight 99.34 kg [facility] [employer] 02-23-2013 09:17-0400 Diastolic blood pressure 92 mm[Hg] [facility] [employer] 02-23-2013 09:17-0400 Heart rate 78 /min [facility].; [employer], [employer] 02-23-2013 09:17-0400 Systolic blood pressure 182 mm[Hg] [facility] [employer] 01-24-2013 09:120500 Body height 163.83 cm Kirk Mercado MD Work Phone: [employer] 01-24-2013 09:12-0500 Body mass index (BMI) [Ratio] 37.01 kg/m2 Kirk Mercado MD Work Phone: [employer].; [employer] 01-24-2013 09:12-0500 Body surface area Derived from formula 2.04 m2 Kirk Mercado MD Work Phone: [employer] 01-24-2013 09:12-0500 Body weight 99.34 kg Kirk Mercado MD Work Phone: [employer] 01-24-2013 09:12-0500 Diastolic blood pressure 84 mm[Hg] Kirk Mercado MD Work Phone: [employer] 01-24-2013 09:12-0500 Heart rate 69 /min Kirk Mercado MD Work Phone: [employer] 01-24-2013 09:12-0500 Systolic blood pressure 150 mm[Hg] Kirk Mercado MD Work Phone: [employer] 11-03-2012 09:50-0500 Body weight 98.88 kg [facility] [employer] [employer] 11-03-2012 09:50-0500 Diastolic blood pressure 93 mm[Hg] Joanne Bailey [facility] [employer].; [employer], [employer] 11-03-2012 09:50-0500 Heart rate 74 /min [facility] [employer] [employer] 11-03-2012 09:50-0500 Systolic blood pressure 175 mm[Hg] Joanne Bailey [facility] [employer].; [employer] 06-30-2012 08:24-0400 Body height 163.83 cm Kirk Mercado MD Work Phone: [employer] 06-30-2012 08:24-0400 Body mass index (BMI) [Ratio] 36.5 kg/m2 Kirk Mercado MD Work Phone: [employer].; [employer] 06-30-2012 08:24-0400 Body surface area Derived from formula 2.03 m2 Kikr Mercado MD Work Phone: [employer] 06-30-2012 08:24-0400 Body weight 97.98 kg Kirk Mercado MD Work Phone: [employer], [employer] 06-30-2012 08:24-0400 Diastolic blood pressure 78 mm[Hg] Kirk Mercado MD Work Phone: [employer] 06-30-2012 08:24-0400 Heart rate 78 /min Kirk Mercado MD Work Phone: [employer] 06-30-2012 08:24-0400 Systolic blood pressure 140 mm[Hg] Kirk Mercado MD Work Phone: [employer] 04-07-2012 09:08-0400 Body height 162.56 cm [facility] [employer], [employer] 04-07-2012 09:08-0400 Body mass index (BMI) [Ratio] 37.08 kg/m2 [facility] [employer] 04-07-2012 09:08-0400 Body surface area Derived from formula 2.02 m2 Meliza Leo [employer] 04-07-2012 09:08-0400 Body weight 97.98 kg [facility] [employer] [employer] 04-07-2012 09:08-0400 Diastolic blood pressure 86 mm[Hg] Meliza Stuckey [employer], [employer] 04-07-2012 09:08-0400 Heart rate 62 /min Meliza Stuckey SUPER[employer] 04-07-2012 09:08-0400 Systolic blood pressure 170 mm[Hg] Joanne Bailey LPN [employer] [employer]. 01-21-2012 14:41-0500 Body height 162.56 cm Kirk Mercado MD Work Phone: [employer].; [employer] 01-21-2012 14:41-0500 Body mass index (BMI) [Ratio] 37.42 kg/m2 Kirk Mercado MD Work Phone: [employer].; [employer] 01-21-2012 14:41-0500 Body surface area Derived from formula 2.03 m2 Kirk Mercado MD Work Phone: [employer].; [employer] 01-21-2012 14:41-0500 Body weight 98.88 kg Kirk Mercado MD Work Phone: [employer].; [employer] 01-21-2012 14:41-0500 Diastolic blood pressure 91 mm[Hg] Kirk Mercado MD Work Phone: [employer].; [employer] 01-21-2012 14:41-0500 Heart rate 88 /min Kirk Mercado MD Work Phone: [employer].; [employer]. 01-21-2012 14:41-0500 Systolic blood pressure 178 mm[Hg] Kirk Mercado MD Work Phone: [employer].; [employer] Encounters Encounter Date Encounter Type Care Provider Facility Start: 12-22-2023 ambulatory SUMMER MITTAL David [facility] Start: 12-21-2023 End: 12-21-2023 ambulatory STAS CHRISTIAN [facility] Start: 12-15-2023 End: 12-15-2023 ambulatory KIRK MERCADO [facility] Start: 12-01-2023 End: 12-01-2023 Kirk Mercado MD Work Phone: [facility] Start: 11-16-2023 End: 11-16-2023 Office outpatient visit 15 minutes Kirk Mercado MD Work Phone: [facility] Start: 11-06-2023 End: 11-06-[facility]: 10-26-2023 End: 10-26-2023 [facility] Start: 10-23-2023 End: 10-23-2023 [facility] Start: 10-23-2023 End: 10-23-2023 Office outpatient visit 25 minutes Kirk Mercado MD Work Phone: [employer] Start: 10-20-2023 End: 10-20-2023 Office outpatient visit 25 minutes Kirk Mercado MD Work Phone: [facility] Start: 10-09-2023 End: 10-09-2023 Office outpatient visit 15 minutes Kirk Mercado MD Work Phone: [facility] Start: 10-06-2023 End: 10-06-2023 Kirk Mercado MD Work Phone: [facility] Start: 10-05-2023 End: 10-05-2023 Office outpatient visit 15 minutes Kirk Mercado MD Work Phone: [facility] Start: 09-28-2023 End: 09-28-2023 Office outpatient visit 15 minutes Kirk Mercado MD Work Phone: [employer] Start: 07-21-2023 End: 07-21-2023 Kirk Mercado MD Work Phone: [facility] Start: 06-17-2023 End: 06-17-2023 Office outpatient visit [...] End: 12-24-2022 Lab findings surveillance Joanne castro [employer] Start: 12-24-2022 End: 07-21-2023 Oncology colorectal screening [...] Phone: Start: 10-24-2019 End: 10-24-2019 Esther King FITNESS ATTENDANT Start: 10-19-2019 End: 10-19-2019 Joanne Bailey LP N Start: 08-09-2019 End: 08-09-2019 Depression screening Kirk Meracdo MD Work Phone: Start: 08-09-2019 End: 08-09-2019 [...] End: 09-28-2018 Examination of retina Joanne Bailey SUPERVISOR AGENCY APPOINTMENTS Start: 07-14-2018 End: 07-14-2018 Pos clin depres [...] End: 01-08-2018 Body mass index documented Kirk eMrcado MD Work Phone: Start: 01-08-2018 End: 01-08-2018 [...] malignant neoplasm of large intestine Lore Montgomery SUPERVISOR AGENCY APPOINTMENTS Start: 11-30-1976 End: 11-30-1976 Nadja Mckay RN Abdominal hysterectomy Laverne issa RN Joanne Disla SUPERVISOR AGENCY APPOINTMENTS Plan of Treatment Date Care Activity Detail Author Start: 12-26-2032 Tetanus vaccination TETANUS [facility] Start: 06-08-2024 End: 06-08-2024 Patient encounter procedure 06/08/2024 12:00 PM EDT Office Visit Division of Endocrinology [address] [place] [id number] Armond Mosquera MD [address] [phone] Division of Endocrinology Start: 04-19-2024 [facility] Start: 07-31-2023 Influenza vaccination INFLUENZA VACCINE (#1) [facility] Start: 06-17-2023 End: 06-17-2023 Patient encounter procedure 06/17/2023 Office Visit Endocrinology, Diabetes & Metabolism Armond Mosquera MD [address] [place] [address] Division of Endocrinology Start: 12-19-2022 Thyroid stimulating hormone measurement TSH [facility] Start: 11-13-2022 Hemoglobin glycosylated a[facility]c [facility] [employer] Start: 07-31-2022 Influenza vaccination INFLUENZA VACCINE (#1) [facility] Start: 03-14-2022 Screening mammography bi 2-view breast inc cad [employer] [facility] Start: 11-12-2021 Assay of thyroid stimulating hormone tsh [facility] [employer] [place] [employer] [facility] Start: 10-19-2020 Screening for malignant neoplasm of colon COLORECTAL CANCER SCREENING DISCUSSION [facility] Start: 11-17-2019 Potassium [Moles/volume] in Serum or Plasma POTASSIUM [facility] Start: 2018 Pneumococcal vaccination PNEUMOCOCCAL VACCINE SERIES (1 - PCV) [facility] Start: 2003 Zoster vaccine hzv live for subcutaneous use ZOSTER (SHINGLES) VACCINE (1 of 2) [facility] Start: 1998 Colonoscopy COLORECTAL CANCER SCREENING DISCUSSION [facility] Start: 1993 Fasting lipid profile LIPID SCREENING [facility] Start: 1993 Lipid panel LIPID SCREENING [facility] Start: 1993 Screening for malignant neoplasm of breast MAMMOGRAM SCREENING DISCUSSION [facility] Start: 1993 Screening mammography MAMMOGRAM SCREENING DISCUSSION [facility] Start: 1974 Screening for malignant neoplasm of cervix CERVICAL CANCER SCREENING DISCUSSION [facility] Start: 1972 Third diphtheria, tetanus and acellular pertussis (DTaP) vaccination TDAP (ADULT) [facility] Start: 1971 Tetanus vaccination TETANUS [facility] Start: 03-07-1954 COVID-19 VACCINE (#1) COVID-19 VACCINE (#1) [facility] Start: 1953 Hepatitis C antibody, confirmatory test HEPATITIS C VIRUS SCREENING [facility] Start: 1953 Hepatitis C screening HEPATITIS C VIRUS SCREENING [facility] Start: 1953 Screening for osteoporosis DEXA SCAN DISCUSSION [facility] Us soft tissue head & neck real time imge docm DE US,HEAD/NECK TISSUES,REAL TIME DE - OFFICE PERFORMED IMAGING Routine Malignant neoplasm of thyroid gland Ordered: 06/12/2022 [facility] Immunizations Immunization Date Immunization Notes Care Provider Fa cility 08-30-2023 Seasonal, quadrivale nt, recombinant, injectable influenza vaccine, preservative free Kirk Mercado MD Work Phone: [employer] [facility] [employer]. 11-04-2022 influenza virus vacc ine, unspecified formulation Armond Mosquera MD Work Phone: [facility] 09-09-2021 influenza virus vacc ine, unspecified formulation Armond Mosquera MD Work Phone: [facility] 05-22-2021 Kirk Mercado MD Work Phone: [employer] 04-12-2021 Kirk Mercado MD Work Phone: [employer] 08-09-2019 diphtheria, tetanus toxoids and acellular pertussis vaccine, unspecified formulation Kirk Mercado MD Work Phone: [employer] 05-24-2019 Shingrix (PF) Kirk Mercado MD Work Phone: [employer] 05-24-2019 pneumococcal conjuga te vaccine, 13 valent Kirk Mercado MD Work Phone: [employer]. 07-25-2013 pneumococcal Conjuga te, unspecified formulation Kirk Mercado MD Work Phone: [facility], [employer] [facility], [facility]. 07-25-2013 pneumococcal polysaccharide vaccine, 23 valent Kirk Mercado MD Work Phone: [facility], [facility]. Payers Date Payer Category Payer Medicare [id number] 2021 Medicare MEDICARE ANTHEM HMO OR PPO MEDICARE ANTHEM HMO OR PPO [id number] 2021-Present [address] [place] [address] [id number] 2021 Medicare [id number] 2017 Unknown 1953 Unknown [id number] 1953 Unknown [id number] 1953 Unknown [id number] 1953 Unknown [id number] 1953 Unknown [id number] 1953 Unknown [id number] 1953 Unknown [id number] 1953 Unknown [id number] 1953 Unknown [id number] 1953 Unknown [id number] 1953 Unknown [id number] Social History Date Type Detail Facility Start: 06-12-2022 Tobacco smoking stat us NHIS Ex-smoker [facility] Start: 06-17-1972 End: 11-30-1973 History of tobacco use Current smoker [facility] Start: 06-17-1972 End: 11-30-1973 History of tobacco use Cigarette Smoker [facility] Start: 06-12-2022 End: 06-17-2023 Cigarettes smoked current (pack per day) - Reported 0.5 [facility] Start: 06-12-2022 Tobacco use and exposure Smoke less tobacco non-user [facility] Start: 06-12-2022 End: 06-17-2023 Alcohol intake Ex-drinker (finding) [facility] Start: 12-19-2021 History SDOH Alcohol Comment quit drinking 08/2021 [facility] Start: 06-12-2022 Tobacco Comment less than 1 pack a d ay [facility] Start: 1955 Sex Assigned At Not on file O [facility] Start: 06-17-2023 Tobacco use panel [facility] Adolescent depressio n screening assessment 0 [facility] Start: 08-20-2017 Gender identity Identifies as female gender (finding) [facility] Start: 12-11-2020 Sexual orientation Heterosexual (fin ding) [facility] Full-time. [facility] Former smoker. [facility] Medical Equipment Procedure Code Equipment Code Equipment Origin al Text Equipment Identifier Dates Mesh Patch Soft Tissue [id number] - [id number] Start: 11-17-2018 Goals Date Patient Goal [...] nodes. 10/2018: Bilateral type 1 thyroplasty w/ [place]-Obdulio Implantation (Dr. White) 12/07/2019: Neck US without [...] 9.2 12/09/2021 0.6 <0.2 7.7 (different assay, [facility]). 05/2022 0.03 <0.2 7.7 (same assay as in Nov 2021, [facility]) 05/2023 0.4 <0.1 1.6 (Adrien) [...] Right; Surgeon: Eber Wadsworth MD; [facility] SUBTOTAL Left 11/17/2017 Laterality: Left; Surgeon: Eber Wadsworth MD; [facility] THYROIDECTOMY TOTAL N/A 11/17/2017 Laterality: N/A; Surgeon: Eber Wadsworth MD; Location: [facility] MAIN OR ANKLE SURGERY HAND SURGERY [...] 1 year error documented in this encounter [facility] Instructions 06-17-2023 Patient Instructions Note Date & Type Note Facility 06-17-2023 Instructions Ani Dodd RN - 06/17/2023 11:40 AM EDT Labs in 1 year. RTC after that documented in this encounter [facility] Instructions 06-12-2022 Patient Instructions Note Date & Type Note Facility 06-12-2022 Instructions Armond Mosquera MD - 06/12/2022 11:38 AM EDT Labs in 6 week (TSH and FT4) outside, entered. Labs in 1 year (TSH, FT4 and Tg) outside, entered RTC in 1 year 1 week after the labs in 1 year documented in this encounter [facility] History of Present illness Narrative 06-12-2022 [...] nodes. 10/2018: Bilateral type 1 thyroplasty w/ [place]-Obdulio Implantation (Dr. White) 12/07/2019: Neck US without [...] 9.2 12/09/2021 0.6 <0.2 7.7 (different assay, [facility]). 05/2022 0.03 <0.2 7.7 (same assay as in Nov 2021, [facility]) She is generally feeling well. [...] Right; Surgeon: Eber Wadsworth MD; [facility] THYROIDECTOMY SUBTOTAL Left 11/17/2017 Laterality: Left; Surgeon: Eber Wadsworth MD; [facility] THYROIDECTOMY TOTAL N/A 11/17/2017 Laterality: N/A; Surgeon: Eber Wadsworth MD; Location: [facility] MAIN OR ANKLE SURGERY HAND SURGERY [...] No suspicious nodes documented in this encounter [facility] Evaluation note Note Date & Type Note Facility documented in this encounter [facility] Evaluation note Note Date & Type Note Facility documented in this encounter [facility] Summary Purpose Family History No Family History [...] FoundDocuments on File Type Date Recorded 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 Advance Directives/Living Will 12/18/2016 Latest Code Status on File Code Status Date Activated Date Inactivated Comments Full Code 11/17/2018 7:35 AM Full Code 01/14/2018 6:10 PM 11/17/2018 7:35 AM Full Code 01/14/2018 9:22 AM 01/14/2018 6:10 PM Full Code 11/17/2017 12:15 PM 11/18/2017 12:13 PM Full Code 11/17/2017 6:20 AM 11/17/2017 12:15 PM Documents on File Type Date Recorded 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 Advance Directives/Living Will 12/18/2016 Latest Code [...] ENDOCRINOLOGY CLINIC Armond Mosquera MD [address] [facility] [address] [place] [address] Referral ID Status Reason Start Date Expiration Date V isits Requested Visits Authorized [id number] New Request 06/12/2022 07/07/2023 1 1 Additional Source Comments INFORMATION SOURCE (unrecogn ized section and content) DATE CREATED AUTHOR AUTHOR'S ORGANIZ ATION 12/12/2021 [facility] DATE CREATED AUTHOR AUTHOR'S ORGANIZ ATION 08/07/2022 [facility] DATE CREATED AUTHOR AUTHOR'S ORGANIZ ATION 06/11/2023 [facility] DATE CREATED AUTHOR AUTHOR'S ORGANIZ ATION 10/07/2023 [facility] DATE CREATED AUTHOR AUTHOR'S ORGANIZ ATION 12/23/2023 [facility] Reason for Visit (unrecogniz ed section and content) Reason Comments Follow-up Routine follow-up wi th mild weight gain. No other concerns noted today. Care Teams (unrecognized sec tion and content) Wiring Technician Relationship Specialty Start Date End Date Kirk Mercado MD [address] [place] [address] [place] [id number] PCP - General Family Medicine 08/25/17 Osmar Walker MD [address] [place] [phone] Otolaryngology 11/03/17 Chuck Suarez MD [address] [place] [address] Hematology 02/15/18 FOR RECORDS PERTAINING TO PATIENTS [...] BE BASED ON THE PRIMARY CLINICAL RECORDS. [facility] [employer] [facility]. provides no warranty or guarantee of the accuracy or completeness of information in this document.
--- OUTSIDE RECORDS SUMMARY | 2023-12-30 21:12 | XMS RPT_ITS | CCD ---
Author Name Unknown Address [address] [place] [address] Organization [facility] Care Team Providers Care Hydrogen Treater Name Role Phone Osmar Walker Unavailable Unavailable Osmra Walker Unavailable Unavailable No Doctor Assigned, Nodr [...] Mercado MD Unavailable Dr. Jaycob Spencer Unavailable [facility], . Unavailable Dr. Bryn Solano MD Unavailable [facility] Unavailable [phone] [facility], . Ml office Unavailable [facility] Unavailable Dr. Chuck Suarez MD Unavailable Amie BOOTH, Yarelis Unavailable Unavailable Sasha TALKING BOOKS LIBRARY CLERK, Brenda Unavailable Faulkner PA-C, Nora J Unavailable Peter TALKING BOOKS LIBRARY CLERK, Anna E Unavailable Unavailable Cameron HARDIN, Marjorie Unavailable Unavailable Hudson TALKING BOOKS LIBRARY CLERK, Margo Unavailable Unavailable Joseph BERNAL, Morteza Fernandez Unavailable Pelon LIVE-C, Luke E Unavailable Pelon RN, Talita Moody Unavailable Unavail able Umberto TALKING BOOKS LIBRARY CLERK, Milady Unavailable Unavailable Nely BOOTH, Nadja Fernandez Unavailable Unavaila ble Mutersbaugh TALKING BOOKS LIBRARY CLERK, Shraddha K Unavailable Unavai labanu Washington PA-C, Maria M J Unavailable Christine FACILITIES MAINTENANCE ASSISTANT, Esther Unavailable Unavailable Valentina TALKING BOOKS LIBRARY CLERK, Lore M Unavailable Unavailab anu Bailey LPN, Joanne Aguilar Unavailable Unavailab anu Sanchez MD, Imtiaz Fernandez Unavailable Jennifer Cole Unavailable Unavailable Lacey TALKING BOOKS LIBRARY CLERK, Mary Unavailable Unavailabl e Unavailable Unavailable ED [...] MERCADO Consulting Unavailable KIRK MERCADO Attending Unavailable IKRK MERCADO Admitting Unavailable PROVIDER, UNKNOWN Consulting Unavailable [...] to adverse reactions to drug 8 Swelling [facility] (2 sources) Sulfonamides (Antibiotic) Propensity to adverse reactions to drug 7 Shortness of Breath [facility] (6 sources) Lisinopril Drug Allergy [employer].; [employer]. (6 sources) Penicillin V Drug Allergy [employer].; [employer]. (1 source) [employer].; [employer]. (1 source) [employer].; [employer]. (1 source) [employer].; [employer]. (1 source) [employer].; [employer], [place]. (1 source) [employer].; [employer]. (1 source) [employer].; [employer]. Medications Current Medications Medication Drug Class(es) Dates [...] aftercare (20 sources) Drug indicated; Translations: [Other care home (current) drug therapy] 03-19-2022 Episodic Other aftercare [...] Body height 163.83 cm Joanne Bailey LPN [facility], [facility] [employer], [place]. 11-16-2023 15:40-0500 Body mass index (BMI) [Ratio] 34.64 kg/m2 MelizaLauren Bailey TALKING BOOKS LIBRARY CLERK [facility] [employer], Inc[employer] 11-16-2023 15:40-0500 Body surface area Derived from formula 1.99 m2 [facility] TALKING BOOKS LIBRARY CLERK [facility] [employer] [facility] [employer], [place]. 11-16-2023 15:40-0500 Body weight 92.99 kg Joanne Bailey TALKING BOOKS LIBRARY CLERK [facility] [employer] [facility], [facility] [employer], Inc. 11-16-2023 15:40-0500 Diastolic blood pressure 75 mm[Hg] MelizaLauren Bailey TALKING BOOKS LIBRARY CLERK [place] [employer] [facility] [employer], [place]. 11-16-2023 15:40-0500 Heart rate 72 /min [facility] TALKING BOOKS LIBRARY CLERK [facility] [employer] [facility] [employer], [place]. 11-16-2023 15:40-0500 Systolic blood pressure 131 mm[Hg] MelizaLauren Bailey TALKING BOOKS LIBRARY CLERK [place] [employer] [facility] [employer], Inc. 10-23-2023 09:28-0500 Body height 163.83 cm Marjroie Barnes MA Yu [employer] [facility], [place].; [employer], [place]. 10-23-2023 09:28-0500 Body mass index (BMI) [Ratio] 34.64 kg/m2 Marjorie Barnes MA [facility] [employer], Inc. 10-23-2023 09:28-0500 Body surface area Derived from formula 1.99 m2 Marjorie Cameron HARDIN [facility] [employer], Inc. 10-23-2023 09:28-0500 Body weight 92.99 kg Marjorie Cameron HARDIN [place] [facility] [facility] [employer], Inc. 10-23-2023 09:28-0500 Diastolic blood pressure 81 mm[Hg] Marjorie Barnes MA [facility] [employer], Inc. 10-23-2023 09:28-0500 Heart rate 71 /min Marjorie Barnes MA [facility] [employer], Inc. 10-23-2023 09:28-0500 Systolic blood pressure 150 mm[Hg] Marjorie Barnes MA [facility] [employer], Inc. 10-20-2023 09:14-0500 Body height 163.83 cm MelizaLauren Bailey LPN [facility] [employer] [facility] [employer], Inc. 10-20-2023 09:14-0500 Body mass index (BMI) [Ratio] 34.31 kg/m2 Joanne Bailey LPN [employer] ([employer]/Gengib[employer]) [facility].; [employer], Inc. 10-20-2023 09:14-0500 Body surface area Derived from formula 1.98 m2 Joanne Bailey TALKING BOOKS LIBRARY CLERK [employer] (Vozero/Gengibre) [facility] [employer], Inc. 10-20-2023 09:14-0500 Body weight 92.08 kg Joanne Bailey TALKING BOOKS LIBRARY CLERK [employer] (Vozero/Gengibre) [facility] [employer], Inc. 10-20-2023 09:14-0500 Diastolic blood pressure 80 mm[Hg] Joanne Bailey LPN [employer] ([employer]ozero/Gengibre) [facility] [employer], Inc. 10-20-2023 09:14-0500 Heart rate 56 /min Joanne Bailey LPN [employer], [employer].; [employer], Inc. 10-20-2023 09:14-0500 Systolic blood pressure 124 mm[Hg] Joanne Bailey TALKING BOOKS LIBRARY CLERK [facility] Yu [employer] [facility] 10-09-2023 11:35-0500 Body height 163.83 cm Lore Choulabach [facility], [facility].; [employer], Inc. 10-09-2023 11:35-0500 Body mass index (BMI) [Ratio] 34.31 kg/m2 Lore Perez Valentina [facility] [employer], Inc. 10-09-2023 11:35-0500 Body surface area Derived from formula 1.98 m2 Lore Perez Valentina [facility] [facility] Inc.; [employer]ight [employer] Inc. 10-09-2023 11:35-0500 Body weight 92.08 kg Lore M Valentina [facility] Inc.; [employer]. 10-09-2023 11:35-0500 Diastolic blood pressure 69 mm[Hg] Lore M Valentina [facility] [facility].; [employer], [place]. 10-09-2023 11:35-0500 Heart rate 68 /min Lore Perez Valentina [facility] [employer]. 10-09-2023 11:35-0500 Systolic blood pressure 105 mm[Hg] Lore M Valentina [facility].; YuNinsight [employer] [facility]. 10-05-2023 09:12-0500 Body height 163.83 cm Nadja Mckay RN [place] [employer] [facility].; [employer]. 10-05-2023 09:12-0500 Body mass index (BMI) [Ratio] 34.31 kg/m2 Nadja Mckay RN [place] [facility].; [employer] Inc. 10-05-2023 09:12-0500 Body surface area Derived from formula 1.98 m2 Nadja Mckay RN [place] [facility].; [employer]. 10-05-2023 09:12-0500 Body temperature 98.6 [degF] Nadja Mckay RN [facility] [employer], Inc[employer] 10-05-2023 09:12-0500 Body weight 92.08 kg Nadja Mckay RN [facility], [facility].; [employer], [employer] 10-05-2023 09:12-0500 Diastolic blood pressure 68 mm[Hg] Nadja Mckay RN [facility] [employer], Inc[employer] 10-05-2023 09:12-0500 Heart rate 73 /min Nadja Mckay RN [facility], [facility].; [employer], [employer] 10-05-2023 09:12-0500 Systolic blood pressure 111 mm[Hg] Nadja Mckay RN [place] [facility] [facility] [employer], Inc. 09-28-2023 08:59-0400 Body height 163.83 cm Jaonne Bailey LPN [facility].; [employer], Inc. 09-28-2023 08:59-0400 Body mass index (BMI) [Ratio] 33.8 kg/m2 Meliza Stuckey [facility] [employer], Inc. 09-28-2023 08:59-0400 Body surface area Derived from formula 1.97 m2 Joanne Bailey LPN [facility] [employer], [employer]. 09-28-2023 08:59-0400 Body weight 90.72 kg Joanne Bailey LPN [place] [employer] [facility] [employer], Inc. 09-28-2023 08:59-0400 Diastolic blood pressure 72 mm[Hg] Joanne Bailey LPN [place] [facility] [facility] [employer], [place]. 09-28-2023 08:59-0400 Heart rate 92 /min Joanne Bailey LPN [place] [facility] [facility], [facility].; [employer], Inc. 09-28-2023 08:59-0400 Systolic blood pressure 152 mm[Hg] Joanne Bailey LPN [place] [facility] [facility] [employer], Inc. 06-17-2023 11:51-0400 Body height 161.3 cm Armond Mosquera MD Work Phone: [facility] 06-17-2023 11:51-0400 Body mass index (BMI) [Ratio] 35.33 kg/m2 Armond Mosquera MD Work Phone: [facility] 06-17-2023 11:51-0400 Body temperature 97.9 [degF] Armond Mosquera MD Work Phone: [facility] 06-17-2023 11:51-0400 Body weight 91.9 kg Armond Mosquera MD Work Phone: [facility] 06-17-2023 11:51-0400 Diastolic blood pressure 72 mm[Hg] Armond Mosquera MD Work Phone: [facility] 06-17-2023 11:51-0400 Heart rate 65 /min Armond Mosquera MD Work Phone: [facility] 06-17-2023 11:51-0400 Respiratory rate 18 /min Armond Mosquera MD Work Phone: [facility] 06-17-2023 11:51-0400 SaO2% (BldA) [Mass fraction] 97 % Armond Mosquera MD Work Phone: [facility] 06-17-2023 11:51-0400 Systolic blood pressure 152 mm[Hg] Armond Mosquera MD Work Phone: [facility] 04-20-2023 08:01-0400 Body height 163.83 cm Kirk Mercado MD Work Phone: [facility] 04-20-2023 08:01-0400 Body mass index (BMI) [Ratio] 33.8 kg/m2 Kirk Mercado MD Work Phone: [facility].; [employer]. 04-20-2023 08:01-0400 Body surface area Derived from formula 1.97 m2 Kirk Mercado MD Work Phone: [employer].; [employer] 04-20-2023 08:01-0400 Body weight 90.72 kg Kirk Mercado MD Work Phone: [employer].; [employer] 04-20-2023 08:01-0400 Diastolic blood pressure 80 mm[Hg] Kirk Mercado MD Work Phone: [employer].; [employer]. 04-20-2023 08:01-0400 Heart rate 57 /min Kirk Mercado MD Work Phone: [employer].; [employer]. 04-20-2023 08:01-0400 Systolic blood pressure 134 mm[Hg] Kirk Mercado MD Work Phone: [employer].; [employer]. 12-24-2022 10:11-0500 Body height 163.83 cm Lore Montgomery [facility] [employer].; [employer] 12-24-2022 10:11-0500 Body mass index (BMI) [Ratio] 33.46 kg/m2 Lore Montgomery [facility].; [employer]. 12-24-2022 10:11-0500 Body surface area Derived from formula 1.96 m2 Lore Montgomery TALKING BOOKS LIBRARY CLERK [employer].; [employer]. 12-24-2022 10:11-0500 Body weight 89.81 kg oLre Montgomery TALKING BOOKS LIBRARY CLERK [employer].; [employer]. 12-24-2022 10:11-0500 Diastolic blood pressure 74 mm[Hg] Lore Montgomery LPN [employer].; [employer] 12-24-2022 10:11-0500 Heart rate 76 /min Lore Montgomery LPN [employer].; [employer] 12-24-2022 10:11-0500 Systolic blood pressure 111 mm[Hg] Lore Montgomery TALKING BOOKS LIBRARY CLERK [employer].; [employer], [employer] 11-12-2022 11:23-0500 Body height 163.83 cm Kirk Mercado MD Work Phone: [employer].; [employer] 11-12-2022 11:23-0500 Body mass index (BMI) [Ratio] 32.95 kg/m2 Kirk Mercado MD Work Phone: [employer].; [employer]. 11-12-2022 11:23-0500 Body surface area Derived from formula 1.95 m2 Kirk Mercado MD Work Phone: [employer].; [employer] 11-12-2022 11:23-0500 Body weight 88.45 kg Kirk Mercado MD Work Phone: [employer].; [employer]. 11-12-2022 11:23-0500 Diastolic blood pressure 78 mm[Hg] Kirk Mercado MD Work Phone: [employer].; [employer], [employer] 11-12-2022 11:23-0500 Heart rate 67 /min Kirk Mercado MD Work Phone: [employer].; [employer] 11-12-2022 11:23-0500 Systolic blood pressure 145 mm[Hg] Kirk Mercado MD Work Phone: [employer].; [employer]. 11-11-2022 10:10-0500 Diastolic blood pressure 78 mm[Hg] Brenda Baez LPN Work Phone: [employer].; [employer], [employer] Work Phone: 11-11-2022 10:10-0500 Heart rate 58 /min Brendasukhi Baez LPN Work Phone: [place] [employer] [facility], [place].; [employer], [employer] Work Phone: 11-11-2022 10:10-0500 Systolic blood pressure 146 mm[Hg] Brenda Baez LPN Work Phone: [place] [employer] [facility].; [employer], [employer]. Work Phone: 08-25-2022 15:01-0400 Body height 163.83 cm Joanne Bailey [facility] [employer], [employer] 08-25-2022 15:01-0400 Body mass index (BMI) [Ratio] 33.63 kg/m2 Joanne Bailey [facility] [employer] [facility].; [employer], Inc. 08-25-2022 15:01-0400 Body surface area Derived from formula 1.96 m2 Joanne [facility].; YuPh[employer]Ph[employer], Inc. 08-25-2022 15:01-0400 Body weight 90.27 kg Joanne Bailey TALKING BOOKS LIBRARY CLERK [employer] (Vozero/Gengibre) [facility].; [employer], Inc. 08-25-2022 15:01-0400 Diastolic blood pressure 79 mm[Hg] Joanne Bailey TALKING BOOKS LIBRARY CLERK [place] [employer] [facility].; [employer], Inc. 08-25-2022 15:01-0400 Heart rate 74 /min Joanne [facility], [facility].; YuPh[employer]Ph[employer], Inc. 08-25-2022 15:01-0400 Systolic blood pressure 161 mm[Hg] Joanne Bailey MONICA [employer] (Vozero/Gengibre) [facility].; [employer], Inc. 06-18-2022 10:27-0400 Body height 163.83 cm Milady Shipman TALKING BOOKS LIBRARY CLERK [facility] [employer] [facility] [employer], Inc. 06-18-2022 10:27-0400 Body mass index (BMI) [Ratio] 33.8 kg/m2 Milady Shipman TALKING BOOKS LIBRARY CLERK [employer] (Vozero/Gengibre) [facility].; [employer], Inc. 06-18-2022 10:27-0400 Body surface area Derived from formula 1.97 m2 Milady Shipman LPN [facility].; [facility] 06-18-2022 10:27-0400 Body weight 90.72 kg Milady Shipman LPN [facility].; [facility] 06-18-2022 10:27-0400 Diastolic blood pressure 77 mm[Hg] Milady Shipman LPN [facility].; [facility] 06-18-2022 10:27-0400 Heart rate 68 /min Milady Shipman LPN [facility].; [facility] 06-18-2022 10:27-0400 Systolic blood pressure 138 mm[Hg] Milady Shipman LPN [facility].; [facility] 06-12-2022 11:02-0400 Body height 161.3 cm Armond Mosquera MD Work Phone: [facility] 06-12-2022 11:02-0400 Body mass index (BMI) [Ratio] 34.61 kg/m2 Armond Mosquera MD Work Phone: [facility] 06-12-2022 11:02-0400 Body temperature 98.1 [degF] Armond Mosquera MD Work Phone: [facility] 06-12-2022 11:02-0400 Body weight 90.04 kg Armond Mosquera MD Work Phone: [facility] 06-12-2022 11:02-0400 Diastolic blood pressure 61 mm[Hg] Armond Mosquera MD Work Phone: [facility] 06-12-2022 11:02-0400 Heart rate 67 /min Armond Mosquera MD Work Phone: [facility] 06-12-2022 11:02-0400 Respiratory rate 18 /min Armond Mosquera MD Work Phone: [facility] 06-12-2022 11:02-0400 SaO2% (BldA) [Mass fraction] 96 % Armond Mosquera MD Work Phone: [facility] 06-12-2022 11:02-0400 Systolic blood pressure 137 mm[Hg] Armond Mosquera MD Work Phone: [facility] 03-19-2022 14:22-0400 Body height 163.83 cm Esther [facility] [employer], [employer] 03-19-2022 14:22-0400 Body mass index (BMI) [Ratio] 33.97 kg/m2 Esther King [facility].; [employer], [employer] 03-19-2022 14:22-0400 Body surface area Derived from formula 1.97 m2 Esther King [facility]Gengibre[facility].; [employer], Inc[employer] 03-19-2022 14:22-0400 Body weight 91.17 kg Esther King [facility] [employer], Inc[facility] 03-19-2022 14:22-0400 Diastolic blood pressure 77 mm[Hg] Esther King [facility] [employer], Inc[facility] 03-19-2022 14:22-0400 Heart rate 67 /min Esther King [facility] [employer], Inc. 03-19-2022 14:22-0400 Systolic blood pressure 129 mm[Hg] Esther King [facility].; [employer], Inc[employer] 01-14-2022 14:59-0500 Body height 163.83 cm MelizaLauren Bailey [facility] [employer], Inc[facility] 01-14-2022 14:59-0500 Body mass index (BMI) [Ratio] 34.14 kg/m2 Meliza Leo [facility] [employer], Inc[facility] 01-14-2022 14:59-0500 Body surface area Derived from formula 1.98 m2 [facility] TALKING BOOKS LIBRARY CLERK [employer], Inc.; [employer], Inc. 01-14-2022 14:59-0500 Body temperature 97.9 [degF] Joanne Bailey [facility].; [employer], Inc. 01-14-2022 14:59-0500 Body weight 91.63 kg Joanne Bailey [facility].; [employer], [employer]. 01-14-2022 14:59-0500 Diastolic blood pressure 64 mm[Hg] Joanne Bailey [facility].; [employer], Inc. 01-14-2022 14:59-0500 Heart rate 74 /min Joanne Bailey [facility].; [employer], Inc. 01-14-2022 14:59-0500 Systolic blood pressure 142 mm[Hg] Joanne Bailey [facility] [facility].; [employer], Inc[employer] 12-18-2021 09:16-0500 Body height 163.83 cm Esther Christine [facility], [facility].; [employer], [employer] 12-18-2021 09:16-0500 Body mass index (BMI) [Ratio] 34.14 kg/m2 Esther Christine [facility] [facility] [employer], Inc. 12-18-2021 09:16-0500 Body surface area Derived from formula 1.98 m2 Esther King [facility] [facility] [employer], Inc. 12-18-2021 09:16-0500 Body weight 91.63 kg Esther Christine [facility], [facility].; [employer], [employer] 12-18-2021 09:16-0500 Diastolic blood pressure 80 mm[Hg] Esther Vaughanr [facility]Gengibre[facility] [employer], Inc. 12-18-2021 09:16-0500 Heart rate 64 /min Esther Christine [facility] [employer], Inc. 12-18-2021 09:16-0500 Systolic blood pressure 129 mm[Hg] Esther Vaughanr [facility]ero[facility]Gengibre[facility] [employer]. 06-18-2021 13:26-0400 Body height 163.83 cm Kirk Mercado MD Work Phone: [employer].; [employer], [employer] 06-18-2021 13:26-0400 Body mass index (BMI) [Ratio] 33.63 kg/m2 Kirk Mercado MD Work Phone: [employer].; [employer], [employer] 06-18-2021 13:26-0400 Body surface area Derived from formula 1.96 m2 Kirk Mercado MD Work Phone: [employer].; [employer] 06-18-2021 13:26-0400 Body weight 90.27 kg Kirk Mercado MD Work Phone: [employer].; [employer], [employer] 06-18-2021 13:26-0400 Diastolic blood pressure 65 mm[Hg] Kirk Mercado MD Work Phone: [employer].; [employer] 06-18-2021 13:26-0400 Heart rate 69 /min Kirk Mercado MD Work Phone: [employer].; [employer], [employer] 06-18-2021 13:26-0400 Systolic blood pressure 135 mm[Hg] Kirk Mercado MD Work Phone: [employer].; [employer], [employer] 02-19-2021 10:44-0400 Body height 163.83 cm [facility].; [employer], [employer] 02-19-2021 10:44-0400 Body mass index (BMI) [Ratio] 33.63 kg/m2 [facility] Center[facility]acoPh[facility], Inc.; [employer], Inc[employer] 02-19-2021 10:44-0400 Body surface area Derived from formula 1.96 m2 [facility], Inc.; [employer], Inc. 02-19-2021 10:44-0400 Body weight 90.27 kg Joanne Bailey LPN [facility], [facility].; Yu [facility] 02-19-2021 10:44-0400 Diastolic blood pressure 75 mm[Hg] Joanne Bailey [facility].; Yu [facility] [facility] 02-19-2021 10:44-0400 Heart rate 60 /min Joanne Bailey [facility].; Yu [facility] 02-19-2021 10:44-0400 Systolic blood pressure 136 mm[Hg] Joanne Bailey [facility].; Yu [facility] [facility] 01-28-2021 10:34-0500 Body height 163.83 cm Joanne Bailey TALKING BOOKS LIBRARY CLERK [facility], [facility].; Yu [employer], [employer] 01-28-2021 10:34-0500 Body mass index (BMI) [Ratio] 33.63 kg/m2 Joanne Bailey [facility].; Yu [facility] 01-28-2021 10:34-0500 Body surface area Derived from formula 1.96 m2 Meliza Stuckey [facility].; Uy [facility] 01-28-2021 10:34-0500 Body weight 90.27 kg Joanne Bailey LPN [facility], [facility].; Yu[employer] (Vozero/Gengibre) [facility] 01-28-2021 10:34-0500 Diastolic blood pressure 80 mm[Hg] Joanne Bailey TALKING BOOKS LIBRARY CLERK [facility], [facility].; Yu [facility] 01-28-2021 10:34-0500 Heart rate 75 /min MelizaLauren Bailey [facility].; Yu [employer], Inc. 01-28-2021 10:34-0500 Systolic blood pressure 129 mm[Hg] Joanne Bailey TALKING BOOKS LIBRARY CLERK [facility].; Yu [employer], Inc. 09-21-2020 09:06-0400 Body height 163.83 cm Nadja Mckay RN [facility], [facility].; [employer] (Vozero/Gengibre) [facility], [facility]. 09-21-2020 09:06-0400 Body mass index (BMI) [Ratio] 34.48 kg/m2 Nadja Mckay RN [place] [employer].; Yu [facility]. 09-21-2020 09:06-0400 Body surface area Derived from formula 1.98 m2 Nadja Mckay RN Yu [facility].; YuN[employer] [facility]. 09-21-2020 [id number] Body weight 92.53 kg Nadja Mckay RN [place] [facility].; YuN[employer] [facility]. 09-21-2020 [id number]:[id number] Diastolic blood pressure 75 mm[Hg] Nadja Mckay RN [employer] (Vozero/Gengibre) [facility].; Yu [employer] [facility]. 09-21-2020 09:060400 Heart rate 72 /min Nadja Mckay RN [employer] (Vozero/Gengibre) [facility].; [employer]. 09-21-2020 [id number]:060400 Systolic blood pressure 130 mm[Hg] Nadja Mckay RN Yu [facility].; [employer] [facility]. 05-14-2020 09:[id number] Body height 163.83 cm Nadja Mckay RN [employer] (Vozero/Gengibre) [facility].; [employer]. 05-14-2020 09:21-0400 Body mass index (BMI) [Ratio] 35.32 kg/m2 Nadja Mckay RN [employer] (Vozero/Gengibre) [facility].; YuN[employer]ight [employer] [facility]. 05-14-2020 09:[id number] Body surface area Derived from formula 2 m2 Nadja Mckay RN Yu [facility].; [employer] [facility]. 05-14-2020 09:[id number] Body weight 94.8 kg Nadja Mckay RN [employer] (Vozero/Gengibre) [facility].; YuN[employer] [facility]. 05-14-2020 09:21-0400 Diastolic blood pressure 78 mm[Hg] Nadja Mckay RN [employer] (Vozero/Gengibre) [facility].; [employer] 05-14-2020 09:21-0400 Heart rate 72 /min Nadja Mckay RN [employer]. 05-14-2020 09:21-0400 Systolic blood pressure 145 mm[Hg] Nadja Mckay RN [employer] 04-11-2020 07:08-0400 Body height 163.83 cm Kirk Mercado MD Work Phone: [employer] 04-11-2020 07:08-0400 Body mass index (BMI) [Ratio] 34.98 kg/m2 Kirk Mercado MD Work Phone: [employer] 04-11-2020 07:08-0400 Body surface area Derived from formula 2 m2 Kirk Mercado MD Work Phone: [employer] 04-11-2020 07:08-0400 Body weight 93.9 kg Kirk Mercado MD Work Phone: [employer] 04-11-2020 07:08-0400 Diastolic blood pressure 80 mm[Hg] Kirk Mercado MD Work Phone: [employer] 04-11-2020 07:08-0400 Heart rate 76 /min Kirk Mercado MD Work Phone: [employer] 04-11-2020 07:08-0400 Systolic blood pressure 136 mm[Hg] Kirk Mercado MD Work Phone: [employer] 08-09-2019 14:13-0400 Body height 163.83 cm Kirk Mercado MD Work Phone: [employer] 08-09-2019 14:13-0400 Body mass index (BMI) [Ratio] 35.15 kg/m2 Kirk Mercado MD Work Phone: [employer] 08-09-2019 14:13-0400 Body surface area Derived from formula 2 m2 Kirk Mercado MD Work Phone: [employer] 08-09-2019 14:13-0400 Body weight 94.35 kg Kirk Mercado MD Work Phone: [employer] 08-09-2019 14:13-0400 Diastolic blood pressure 76 mm[Hg] Kirk Mercado MD Work Phone: [employer] 08-09-2019 14:13-0400 Heart rate 76 /min Kirk Mercado MD Work Phone: [employer] 08-09-2019 14:13-0400 Systolic blood pressure 132 mm[Hg] Kirk Mercado MD Work Phone: [employer] 05-24-2019 11:09-0400 Body height 163.83 cm Joanne Bailey [facility] [employer] 05-24-2019 11:09-0400 Body mass index (BMI) [Ratio] 34.64 kg/m2 Joanne Bailey MONICA [employer] 05-24-2019 11:09-0400 Body surface area Derived from formula 1.99 m2 Joanne Bailey [employer] LIBRARY CLERK [employer] 05-24-2019 11:09-0400 Body weight 92.99 kg Joanne Bailey [employer] LIBRARY CLERK [employer] 05-24-2019 11:09-0400 Diastolic blood pressure 78 mm[Hg] Joanne Bailey MONICA [employer] 05-24-2019 11:09-0400 Heart rate 103 /min Joanne Dislaey [employer] LIBRARY CLERK [employer] 05-24-2019 11:09-0400 Systolic blood pressure 131 mm[Hg] Joanne Bailey [employer] LIBRARY CLERK [employer] 11-26-2018 14:45-0500 Body height 163.83 cm Shraddha Jag Mutkingsleybaugh [employer] LIBRARY CLERK [employer] 11-26-2018 14:45-0500 Body mass index (BMI) [Ratio] 34.98 kg/m2 Shraddha K Mutersbaugh [employer] LIBRARY CLERK [employer] 11-26-2018 14:45-0500 Body surface area Derived from formula 2 m2 Shraddha K Mutersbaugh [employer] LIBRARY CLERK [employer] 11-26-2018 14:45-0500 Body weight 93.9 kg Shraddha K Mutersbaugh [employer] LIBRARY CLERK [employer] 11-26-2018 14:45-0500 Diastolic blood pressure 76 mm[Hg] Shraddha K Mutersbaugh [employer] LIBRARY CLERK [employer] 11-26-2018 14:45-0500 Heart rate 89 /min Shraddha K Mutersbaugh [employer] LIBRARY CLERK [employer] 11-26-2018 14:45-0500 Systolic blood pressure 162 mm[Hg] Shraddha K Mutersbaugh [employer] LIBRARY CLERK [employer]. 07-14-2018 06:46-0400 Body height 163.83 cm Kirk Mercado MD Work Phone: [employer] 07-14-2018 06:46-0400 Body mass index (BMI) [Ratio] 34.81 kg/m2 Kirk Mercado MD Work Phone: [employer] 07-14-2018 06:46-0400 Body surface area Derived from formula 1.99 m2 Kirk Mercado MD Work Phone: [employer] 07-14-2018 06:46-0400 Body weight 93.44 kg Kirk Mercado MD Work Phone: [employer] 07-14-2018 06:46-0400 Diastolic blood pressure 71 mm[Hg] Kirk Mercado MD Work Phone: [employer] 07-14-2018 06:46-0400 Heart rate 67 /min Kirk Mercado MD Work Phone: [employer] 07-14-2018 06:46-0400 Systolic blood pressure 130 mm[Hg] Kirk Mercado MD Work Phone: [employer] 06-24-2018 11:21-0400 Body height 163.83 cm Shraddha K Mutersbaugh [employer] LIBRARY CLERK [employer]. 06-24-2018 11:21-0400 Body mass index (BMI) [Ratio] 34.98 kg/m2 Shraddha K Mutersbaugh [employer] LIBRARY CLERK [employer]. 06-24-2018 11:21-0400 Body surface area Derived from formula 2 m2 Shraddha K Mutersbaugh [employer] LIBRARY CLERK [employer]. 06-24-2018 11:21-0400 Body temperature 100.2 [degF] Shraddha K Mutersbaugh [employer] LIBRARY CLERK [employer]. 06-24-2018 11:21-0400 Body weight 93.9 kg Shraddha K Mutersbaugh [employer] LIBRARY CLERK [employer] 06-24-2018 11:21-0400 Diastolic blood pressure 76 mm[Hg] Shraddha K Mutersbaugh [employer] LIBRARY CLERK [employer]. 06-24-2018 11:21-0400 Heart rate 90 /min Shraddha K Mutersbaugh [employer] LIBRARY CLERK [employer] 06-24-2018 11:21-0400 Systolic blood pressure 146 mm[Hg] Shraddhasa Jag Walker LPN [employer] ([employer]) [facility] [employer] 01-25-2018 09:29-0500 Body height 163.83 cm Anna Green LPN [employer] 01-25-2018 09:29-0500 Body mass index (BMI) [Ratio] 35.32 kg/m2 Anna Green LPN [employer] 01-25-2018 09:29-0500 Body surface area Derived from formula 2 m2 [facility] [employer] 01-25-2018 09:29-0500 Body weight 94.8 kg Anna Green LPN [employer] 01-25-2018 09:29-0500 Diastolic blood pressure 76 mm[Hg] Anna Green LPN [employer] 01-25-2018 09:29-0500 Heart rate 63 /min [facility] [employer]. 01-25-2018 09:29-0500 Systolic blood pressure 143 mm[Hg] Anna Green LPN [employer] 01-08-2018 13:57-0500 Body height 163.83 cm Kirk Mercado MD Work Phone: [employer] 01-08-2018 13:57-0500 Body mass index (BMI) [Ratio] 35.66 kg/m2 Kirk Mercado MD Work Phone: [employer] 01-08-2018 13:57-0500 Body surface area Derived from formula 2.01 m2 Kirk Mercado MD Work Phone: [employer] 01-08-2018 13:57-0500 Body weight 95.71 kg Kirk Mercado MD Work Phone: [employer] 01-08-2018 13:57-0500 Diastolic blood pressure 78 mm[Hg] Kirk Mercado MD Work Phone: [employer] 01-08-2018 13:57-0500 Heart rate 66 /min Kirk Mercado MD Work Phone: [employer] 01-08-2018 13:57-0500 Systolic blood pressure 124 mm[Hg] Kirk Mercado MD Work Phone: [employer] 12-11-2017 08:51-0500 Body height 163.83 cm Anna Green LPN [employer] 12-11-2017 08:51-0500 Body mass index (BMI) [Ratio] 35.32 kg/m2 Anna Green LPN [employer] 12-11-2017 08:51-0500 Body surface area Derived from formula 2 m2 Anna Green [employer] LIBRARY CLERK [employer] 12-11-2017 08:51-0500 Body weight 94.8 kg Anna Green LPN [employer] 12-11-2017 08:51-0500 Diastolic blood pressure 74 mm[Hg] Anna Green LPN [employer] 12-11-2017 08:51-0500 Heart rate 66 /min Anna Green LPN [employer] 12-11-2017 08:51-0500 Systolic blood pressure 147 mm[Hg] Anna Green LPN [employer] 09-05-2017 09:20-0400 Body height 163.83 cm Yarelis Holloway RN [employer] 09-05-2017 09:20-0400 Body mass index (BMI) [Ratio] 34.81 kg/m2 Yarelis Holloway RN [employer] ([employer]) [facility] [employer]. 09-05-2017 09:20-0400 Body surface area Derived from formula 1.99 m2 Yarelis Holloway RN [employer] ([employer]) [facility] [employer] 09-05-2017 09:20-0400 Body weight 93.44 kg Yarelis Holloway RN [employer] 09-05-2017 09:20-0400 Diastolic blood pressure 76 mm[Hg] Yarelis Holloway RN [employer] 09-05-2017 09:20-0400 Heart rate 62 /min Yarelis Holloway RN [employer]. 09-05-2017 09:20-0400 Systolic blood pressure 144 mm[Hg] Yarelis Holloway RN [employer]. 07-13-2017 09:06-0400 Body height 163.83 cm Anna Green LPN [employer]. 07-13-2017 09:06-0400 Body mass index (BMI) [Ratio] 35.86 kg/m2 Anna Green LPN [employer] 07-13-2017 09:06-0400 Body surface area Derived from formula 2.02 m2 Anna Green LPN [employer]. 07-13-2017 09:06-0400 Body weight 96.25 kg Anna Green LPN [employer]. 07-13-2017 09:06-0400 Diastolic blood pressure 76 mm[Hg] Anna Green LPN [employer] 07-13-2017 09:06-0400 Heart rate 69 /min Anna Green LPN [employer]. 07-13-2017 09:06-0400 Systolic blood pressure 136 mm[Hg] Anna Green LPN [employer] 02-25-2017 07:32-0400 Body height 163.83 cm Kirk Mercado MD Work Phone: [employer] 02-25-2017 07:32-0400 Body mass index (BMI) [Ratio] 35.15 kg/m2 Kirk Mercado MD Work Phone: [employer] 02-25-2017 07:32-0400 Body surface area Derived from formula 2 m2 Kirk Mercado MD Work Phone: [employer] 02-25-2017 07:32-0400 Body weight 94.35 kg Kirk Mercado MD Work Phone: [employer] 02-25-2017 07:32-0400 Diastolic blood pressure 78 mm[Hg] Kirk Mercado MD Work Phone: [employer] 02-25-2017 07:32-0400 Heart rate 77 /min Kirk Mercado MD Work Phone: [employer] 02-25-2017 07:32-0400 Systolic blood pressure 132 mm[Hg] Kirk Mercado MD Work Phone: [employer] 07-30-2016 14:17-0400 Body height 163.83 cm [facility] [employer] 07-30-2016 14:17-0400 Body mass index (BMI) [Ratio] 33.12 kg/m2 [facility] [employer] 07-30-2016 14:17-0400 Body surface area Derived from formula 1.95 m2 [facility] [employer] 07-30-2016 14:17-0400 Body weight 88.91 kg Joanne Bailey MONICA [employer] 07-30-2016 14:17-0400 Diastolic blood pressure 88 mm[Hg] Joanne Bailey MONICA [employer] 07-30-2016 14:17-0400 Heart rate 87 /min Joanne Bailey [employer]RARY CLERK [employer] 07-30-2016 14:17-0400 Systolic blood pressure 162 mm[Hg] Joanne Bailey MONICA [employer]. 01-25-2016 10:44-0500 Body height 163.83 cm Lore Montgomery LPN [employer] 01-25-2016 10:44-0500 Body mass index (BMI) [Ratio] 33.8 kg/m2 [facility]ore [facility] [employer] 01-25-2016 10:44-0500 Body surface area Derived from formula 1.97 m2 Lore Montgomery LPN [employer] 01-25-2016 10:44-0500 Body temperature 98 [degF] Lore Montgomery LPN [employer] 01-25-2016 10:44-0500 Body weight 90.72 kg Lore Montgomery LPN [employer] 01-25-2016 10:44-0500 Diastolic blood pressure 83 mm[Hg] Lore Montgomery LPN [employer] 01-25-2016 10:44-0500 Heart rate 65 /min Lore Montgomery LPN [employer]. 01-25-2016 10:44-0500 Systolic blood pressure 137 mm[Hg] Lore Montgomery LPN [employer]. 07-30-2015 09:52-0400 Body height 163.83 cm Kirk Mercado MD Work Phone: [employer] 07-30-2015 09:52-0400 Body mass index (BMI) [Ratio] 34.14 kg/m2 Kirk Mercado MD Work Phone: [employer] 07-30-2015 09:52-0400 Body surface area Derived from formula 1.98 m2 Kirk Mercado MD Work Phone: [employer] 07-30-2015 09:52-0400 Body weight 91.63 kg Kirk Mercado MD Work Phone: [employer] 07-30-2015 09:52-0400 Diastolic blood pressure 82 mm[Hg] Kirk Mercado MD Work Phone: [employer] 07-30-2015 09:52-0400 Heart rate 64 /min Kirk Mercado MD Work Phone: [employer] 07-30-2015 09:52-0400 Systolic blood pressure 132 mm[Hg] Kirk Mercado MD Work Phone: [employer] 05-16-2015 07:28-0400 Body height 163.83 cm Kirk Mercado MD Work Phone: [employer] 05-16-2015 07:28-0400 Body mass index (BMI) [Ratio] 34.81 kg/m2 Kirk Mercado MD Work Phone: [employer] 05-16-2015 07:28-0400 Body surface area Derived from formula 1.99 m2 Kirk Mercado MD Work Phone: [employer] 05-16-2015 07:28-0400 Body weight 93.44 kg Kirk Mercado MD Work Phone: [employer] 05-16-2015 07:28-0400 Diastolic blood pressure 88 mm[Hg] Kirk Mercado MD Work Phone: [employer] 05-16-2015 07:28-0400 Heart rate 68 /min Kirk Mercado MD Work Phone: [employer] 05-16-2015 07:28-0400 Systolic blood pressure 148 mm[Hg] Kirk Mercado MD Work Phone: [employer] 01-15-2015 09:07-0500 Body weight 92.53 kg Anna Green LPN [employer] 01-15-2015 09:07-0500 Diastolic blood pressure 66 mm[Hg] Anna Green LPN [employer] 01-15-2015 09:07-0500 Heart rate 68 /min Anna Green LPN [employer] 01-15-2015 09:07-0500 Systolic blood pressure 133 mm[Hg] Anna Green LPN [employer] 07-10-2014 09:39-0400 Body height 163.83 cm Kirk Mercado MD Work Phone: [employer] 07-10-2014 09:39-0400 Body mass index (BMI) [Ratio] 35.49 kg/m2 Kirk Mercado MD Work Phone: [employer] 07-10-2014 09:39-0400 Body surface area Derived from formula 2.01 m2 Kirk Mercado MD Work Phone: [employer] 07-10-2014 09:39-0400 Body weight 95.26 kg Kirk Mercado MD Work Phone: [employer] 07-10-2014 09:39-0400 Diastolic blood pressure 82 mm[Hg] Kirk Mercado MD Work Phone: [employer] 07-10-2014 09:39-0400 Heart rate 77 /min Kirk Mercado MD Work Phone: [employer] 07-10-2014 09:39-0400 Systolic blood pressure 150 mm[Hg] Kirk Mercado MD Work Phone: [employer] 01-09-2014 09:31-0500 Body weight 98.43 kg Kirk Mercado MD Work Phone: [employer] 01-09-2014 09:31-0500 Diastolic blood pressure 73 mm[Hg] Kirk Mercado MD Work Phone: [employer] 01-09-2014 09:31-0500 Heart rate 72 /min Kirk Mercado MD Work Phone: [employer] 01-09-2014 09:31-0500 Systolic blood pressure 148 mm[Hg] Kirk Mercado MD Work Phone: [employer] 11-09-2013 09:31-0500 Body height 163.83 cm Lore Montgomery LPN [employer] 11-09-2013 09:31-0500 Body mass index (BMI) [Ratio] 37.01 kg/m2 Lore Montgomery LPN [employer] 11-09-2013 09:31-0500 Body surface area Derived from formula 2.04 m2 Lore Montgomery [employer] LIBRARY CLERK [employer] 11-09-2013 09:31-0500 Body temperature 97.7 [degF] Lore Perez Valentina ANDERSON [employer] 11-09-2013 09:31-0500 Body weight 99.34 kg Lore Perez Valentina ANDERSON [employer] 11-09-2013 09:31-0500 Diastolic blood pressure 87 mm[Hg] Lore Perez Valentina [employer] LIBRARY CLERK [employer] 11-09-2013 09:31-0500 Heart rate 78 /min Lore Perez Valentina CORONELN [employer] 11-09-2013 09:31-0500 Systolic blood pressure 187 mm[Hg] Lore Perez Valentina ANDERSON [employer] 07-25-2013 09:02-0400 Body height 163.83 cm Kirk Mercado MD Work Phone: [employer] 07-25-2013 09:02-0400 Body mass index (BMI) [Ratio] 37.35 kg/m2 Kirk Mercado MD Work Phone: [employer] 07-25-2013 09:02-0400 Body surface area Derived from formula 2.05 m2 Kirk Mercado MD Work Phone: [employer] 07-25-2013 09:02-0400 Body weight 100.25 kg Kirk Mercado MD Work Phone: [employer] 07-25-2013 09:02-0400 Diastolic blood pressure 88 mm[Hg] Kirk Mercado MD Work Phone: [employer] 07-25-2013 09:02-0400 Heart rate 76 /min Kirk Mercado MD Work Phone: [employer] 07-25-2013 09:02-0400 Systolic blood pressure 148 mm[Hg] Kirk Mercado MD Work Phone: [employer] 02-23-2013 09:17-0400 Body height 163.83 cm [facility] [employer] 02-23-2013 09:17-0400 Body mass index (BMI) [Ratio] 37.01 kg/m2 Meliza Leo [facility] [employer] 02-23-2013 09:17-0400 Body surface area Derived from formula 2.04 m2 [facility] [employer] 02-23-2013 09:17-0400 Body weight 99.34 kg [facility] [employer] 02-23-2013 09:17-0400 Diastolic blood pressure 92 mm[Hg] [facility] [employer] 02-23-2013 09:17-0400 Heart rate 78 /min [facility] [employer] 02-23-2013 09:17-0400 Systolic blood pressure 182 mm[Hg] [facility] [employer] 01-24-2013 09:120500 Body height 163.83 cm Kirk Mercdao MD Work Phone: [employer] 01-24-2013 09:12-0500 Body mass index (BMI) [Ratio] 37.01 kg/m2 Kirk Mercado MD Work Phone: [employer] 01-24-2013 09:12-0500 Body surface area Derived from formula 2.04 m2 Kirk Mercado MD Work Phone: [employer] 01-24-2013 09:12-0500 Body weight 99.34 kg Kirk Mercado MD Work Phone: [employer] 01-24-2013 09:12-0500 Diastolic blood pressure 84 mm[Hg] Kirk Mercado MD Work Phone: [employer] 01-24-2013 09:12-0500 Heart rate 69 /min Kirk Mercado MD Work Phone: [employer] 01-24-2013 09:12-0500 Systolic blood pressure 150 mm[Hg] Kirk Mercado MD Work Phone: [employer] 11-03-2012 09:50-0500 Body weight 98.88 kg Joanne Bailey [facility] [employer] 11-03-2012 09:50-0500 Diastolic blood pressure 93 mm[Hg] Joanne Bailey [facility] [employer] 11-03-2012 09:50-0500 Heart rate 74 /min Joanne Bailey [facility] [employer] 11-03-2012 09:50-0500 Systolic blood pressure 175 mm[Hg] Joanne Bailey [facility] [employer] 06-30-2012 08:24-0400 Body height 163.83 cm Kirk Mercado MD Work Phone: [employer] 06-30-2012 08:24-0400 Body mass index (BMI) [Ratio] 36.5 kg/m2 Kirk Mercado MD Work Phone: [employer] 06-30-2012 08:24-0400 Body surface area Derived from formula 2.03 m2 Kirk Mercado MD Work Phone: [employer] 06-30-2012 08:24-0400 Body weight 97.98 kg Kirk Mercado MD Work Phone: [employer], [employer] 06-30-2012 08:24-0400 Diastolic blood pressure 78 mm[Hg] Kirk Mercado MD Work Phone: [employer] 06-30-2012 08:24-0400 Heart rate 78 /min Kirk Mercado MD Work Phone: [employer] 06-30-2012 08:24-0400 Systolic blood pressure 140 mm[Hg] Kirk Mercado MD Work Phone: [employer] 04-07-2012 09:08-0400 Body height 162.56 cm [facility] [employer] 04-07-2012 09:08-0400 Body mass index (BMI) [Ratio] 37.08 kg/m2 [facility] [employer] 04-07-2012 09:08-0400 Body surface area Derived from formula 2.02 m2 Meliza Leo [employer] LIBRARY CLERK [employer] 04-07-2012 09:08-0400 Body weight 97.98 kg Meliza Leo [facility] [employer] 04-07-2012 09:08-0400 Diastolic blood pressure 86 mm[Hg] Meliza Stuckey [employer] LIBRARY CLERK [employer] 04-07-2012 09:08-0400 Heart rate 62 /min Meliza Stuckey [employer] LIBRARY CLERK [employer] [employer] [employer] 04-07-2012 09:08-0400 Systolic blood pressure 170 mm[Hg] Joanne Bailey LPN [employer] 01-21-2012 14:41-0500 Body height 162.56 cm Kirk Mercado MD Work Phone: [employer] 01-21-2012 14:41-0500 Body mass index (BMI) [Ratio] 37.42 kg/m2 Kirk Mercado MD Work Phone: [employer] 01-21-2012 14:41-0500 Body surface area Derived from formula 2.03 m2 Kirk Mercado MD Work Phone: [employer] 01-21-2012 14:41-0500 Body weight 98.88 kg Kirk Mercado MD Work Phone: [employer] 01-21-2012 14:41-0500 Diastolic blood pressure 91 mm[Hg] Kirk Mercado MD Work Phone: [employer] 01-21-2012 14:41-0500 Heart rate 88 /min Kirk Mercado MD Work Phone: [employer] 01-21-2012 14:41-0500 Systolic blood pressure 178 mm[Hg] Kirk Mercado MD Work Phone: [employer] Encounters Encounter Date Encounter Type Care Provider Facility Start: 12-22-2023 ambulatory SUMMER MITTAL [facility] Start: 12-21-2023 End: 12-21-2023 ambulatory STSA CHRISTIAN [facility] Start: 12-15-2023 End: 12-15-2023 ambulatory KIRK MERCADO [facility] Start: 12-01-2023 End: 12-01-2023 Kirk Mercado MD Work Phone: [employer] Start: 11-16-2023 End: 11-16-2023 Office outpatient visit 15 minutes Kirk Mercado MD Work Phone: [employer] Start: 11-06-2023 End: [facility]06[facility]: 10-26-2023 End: 10-26-2023 Kirk Mercado MD Work Phone: [employer] ([facility]) [facility] Start: 10-23-2023 End: 10-23-2023 [facility] Start: 10-23-2023 End: 10-23-2023 Office outpatient visit 25 minutes Kirk Mercado MD Work Phone: [facility] Start: 10-20-2023 End: 10-20-2023 Office outpatient visit 25 minutes Kirk Mercado MD Work Phone: [employer] Start: 10-09-2023 End: 10-09-2023 Office outpatient visit 15 minutes Kirk Mercado MD Work Phone: [employer] Start: 10-06-2023 End: 10-06-2023 Kirk Mercado MD Work Phone: [employer] Start: 10-05-2023 End: 10-05-2023 Office outpatient visit 15 minutes Kirk Mercado MD Work Phone: [employer] Start: 09-28-2023 End: 09-28-2023 Office outpatient visit 15 minutes Kirk Mercado MD Work Phone: [employer] 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 ASSISTANT Start: 10-19-2019 End: 10-19-2019 Joanne Bailey LP [...] End: 09-28-2018 Examination of retina Joanne Bailey [employer] CLERK Start: 07-14-2018 End: 07-14-2018 Pos clin depres [...] malignant neoplasm of large intestine Lore Montgomery [employer]RARY CLERK Start: 11-30-1976 End: 11-30-1976 Nadja Mckay RN Abdominal hysterectomy Laverne issa RN Joanne Disla [employer]ALK[employer] LIBRARY CLERK Plan of Treatment Date Care Activity Detail Author Start: 12-26-2032 Tetanus vaccination TETANUS [facility] Start: 06-08-2024 End: 06-08-2024 Patient encounter procedure 06/08/2024 12:00 PM EDT Office Visit Division of Endocrinology [address] [place] [id number] Armond Mosquera MD [address] [id number] Division of Endocrinology Start: 04-19-2024 [facility] Start: 07-31-2023 Influenza vaccination INFLUENZA VACCINE (#1) [facility] Start: 06-17-2023 End: 06-17-2023 Patient encounter procedure 06/17/2023 Office Visit Endocrinology, Diabetes & Metabolism Armond Mosquera MD [address] [place] [address] Division of Endocrinology Start: 12-19-2022 Thyroid stimulating hormone measurement TSH [facility] Start: 11-13-2022 [facility]c [facility] [place] [facility] Start: 07-31-2022 Influenza vaccination INFLUENZA VACCINE (#1) [facility] Start: 03-14-2022 Screening mammography bi 2-view breast inc cad [place] [employer] [facility] [place] [facility] Start: 11-12-2021 Assay of thyroid stimulating hormone tsh [facility]; [place] [employer] [facility] Start: 10-19-2020 Screening for malignant neoplasm of colon COLORECTAL CANCER SCREENING DISCUSSION [facility] Start: 11-17-2019 Potassium [Moles/volume] in Serum or Plasma POTASSIUM [facility] Start: 2018 Pneumococcal vaccination PNEUMOCOCCAL VACCINE SERIES (1 - PCV) [facility] Start: 2003 Zoster vaccine hzv live for subcutaneous use ZOSTER (SHINGLES) VACCINE (1 of 2) [facility] Start: 1998 Colonoscopy COLORECTAL CANCER SCREENING DISCUSSION [facility] Start: 1993 Fasting lipid profile LIPID SCREENING [facility] Start: 1993 Lipid panel LIPID SCREENING [facility] Start: 1993 Screening for malignant neoplasm of breast MAMMOGRAM SCREENING DISCUSSION [facility] Start: 1993 Screening mammography MAMMOGRAM SCREENING DISCUSSION [facility] Start: 1974 Screening for malignant neoplasm of cervix CERVICAL CANCER SCREENING DISCUSSION [facility] Start: 1972 Third diphtheria, tetanus and acellular pertussis (DTaP) vaccination TDAP (ADULT) [facility] Start: 1971 Tetanus vaccination TETANUS [facility] Start: [birth year]07-1956 COVID-19 VACCINE (#1) COVID-19 VACCINE (#1) [facility] Start: 1953 Hepatitis C antibody, confirmatory test HEPATITIS C VIRUS SCREENING [facility] Start: 1953 Hepatitis C screening HEPATITIS C VIRUS SCREENING [facility] Start: 1955 Screening for osteoporosis DEXA SCAN DISCUSSION [facility] Us soft tissue head & neck real time imge docm [place],HEAD/NECK TISSUES,REAL TIME [place] - OFFICE PERFORMED IMAGING Routine Malignant neoplasm of thyroid gland Ordered: 06/12/2022 [facility] Immunizations Immunization Date Immunization Notes Care Provider Fa cility 08-30-2023 Seasonal, quadrivale nt, recombinant, injectable influenza vaccine, preservative free Kirk Mercado MD Work Phone: [employer] [facility] [employer] 11-04-2022 influenza virus vacc ine, unspecified formulation Armond Mosquera MD Work Phone: [facility] 09-09-2021 influenza virus vacc ine, unspecified formulation Armond Mosquera MD Work Phone: [facility] 05-22-2021 Kirk Mercado MD Work Phone: [employer] 04-12-2021 Kirk Mercado MD Work Phone: [employer] 08-09-2019 diphtheria, tetanus toxoids and acellular pertussis vaccine, unspecified formulation Kirk Mercado MD Work Phone: [employer] 05-24-2019 Shingrix (PF) Kirk Mercado MD Work Phone: [employer] 05-24-2019 pneumococcal conjuga te vaccine, 13 valent Kirk Mercado MD Work Phone: [employer] 07-25-2013 pneumococcal Conjuga te, unspecified formulation Kirk Mercado MD Work Phone: [facility] [place]. 07-25-2013 pneumococcal polysaccharide vaccine, 23 valent Kirk Mercado MD Work Phone: [facility], [facility]. Payers Date Payer Category Payer Medicare [id number] 2021 Medicare MEDICARE ANTHEM HMO OR PPO MEDICARE ANTHEM HMO OR PPO [id number] 2021-Present [address] [place] [address] [id number] 2021 Medicare [id number] 2017 Unknown 1953 Unknown [id number] 1953 Unknown [id number] 1953 Unknown [id number] 1953 Unknown [id number] 1953 Unknown [id number] 1953 Unknown [id number] 1953 Unknown [id number] 1953 Unknown [id number] 1953 Unknown [id number] 1953 Unknown [id number] 1953 Unknown [id number] Social History Date Type Detail Facility Start: 06-12-2022 Tobacco smoking stat us NHIS Ex-smoker [facility] Start: 06-17-1972 End: 11-30-1973 History of tobacco use Current smoker [facility] Start: 06-17-1972 End: 11-30-1973 History of tobacco use Cigarette Smoker [facility] Start: 06-12-2022 End: 06-17-2023 Cigarettes smoked current (pack per day) - Reported 0.5 [facility] Start: 06-12-2022 Tobacco use and exposure Smoke less tobacco non-user [facility] Start: 06-12-2022 End: 06-17-2023 Alcohol intake Ex-drinker (finding) [facility] Start: 12-19-2021 History SDOH Alcohol Comment quit drinking 08/2021 [facility] Start: 06-12-2022 Tobacco Comment less than 1 pack a d ay [facility] Start: 1955 Sex Assigned At Not on file O SOLIS [facility] Start: 06-17-2023 Tobacco use panel [facility] Adolescent depressio n screening assessment 0 [facility] Start: 08-20-2017 Gender identity Identifies as female gender (finding) [facility] Start: 12-11-2020 Sexual orientation Heterosexual (fin ding) [facility] Full-time. [facility] Former smoker. [facility] Medical Equipment Procedure Code Equipment Code Equipment Origin al Text Equipment Identifier Dates Mesh Patch Soft Tissue [id number] - [id number] Start: 11-17-2018 Goals Date Patient Goal [...] nodes. 10/2018: Bilateral type 1 thyroplasty w/ Torrance-Obdulio Implantation (Dr. White) 12/07/2019: Neck US without [...] 9.2 12/09/2021 0.6 <0.2 7.7 (different assay, [facility]). 05/2022 0.03 <0.2 7.7 (same assay as in Nov 2021, [facility]) 05/2023 0.4 <0.1 1.6 (Adrien) She is [...] Right; Surgeon: Eber Wadsworth MD; [facility] THY[facility]IDECT[facility] SUBTOTAL Left 11/17/2017 Laterality: Left; Surgeon: Eber Wadsworth MD; [facility] THYROIDECTOMY TOTAL N/A 11/17/2017 Laterality: N/A; Surgeon: Eber Wadsworth MD; Location: [facility] MAIN OR ANKLE SURGERY HAND SURGERY [...] 1 year error documented in this encounter [facility] Instructions 06-17-2023 Patient Instructions Note Date & Type Note Facility 06-17-2023 Instructions Ani Dodd RN - 06/17/2023 11:40 AM EDT Labs in 1 year. RTC after that documented in this encounter [facility] Instructions 06-12-2022 Patient Instructions Note Date & Type Note Facility 06-12-2022 Instructions Armond Mosquera MD - 06/12/2022 11:38 AM EDT Labs in 6 week (TSH and FT4) outside, entered. Labs in 1 year (TSH, FT4 and Tg) outside, entered RTC in 1 year 1 week after the labs in 1 year documented in this encounter [facility] History of Present illness Narrative 06-12-2022 Armond [...] nodes. 10/2018: Bilateral type 1 thyroplasty w/ Torrance-Obdulio Implantation (Dr. White) 12/07/2019: Neck US without [...] 9.2 12/09/2021 0.6 <0.2 7.7 (different assay, [facility]). 05/2022 0.03 <0.2 7.7 (same assay as in Nov 2021, [facility]) She is generally feeling well. Main symptom [...] Right; Surgeon: Eber Wadsworth MD; [facility] THYROIDECTOMY SUBTOTAL Left 11/17/2017 Laterality: Left; Surgeon: Eber Wadsworth MD; [facility] OR THYROIDECTOMY TOTAL N/A 11/17/2017 Laterality: N/A; Surgeon: Eber Wadsworth MD; Location: [facility] MAIN OR ANKLE SURGERY HAND SURGERY [...] No suspicious nodes documented in this encounter [facility] Evaluation note Note Date & Type Note Facility documented in this encounter [facility] Evaluation note Note Date & Type Note Facility documented in this encounter [facility] Summary Purpose Family History No Family History [...] FoundDocuments on File Type Date Recorded 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 HealthCare Power of Pyroglazer 12/18/2016 Advance Directives/Living Will 12/18/2016 Latest Code Status on File Code Status Date Activated Date Inactivated Comments Full Code 11/17/2018 7:35 AM Full Code 01/14/2018 6:10 PM 11/17/2018 7:35 AM Full Code 01/14/2018 9:22 AM 01/14/2018 6:10 PM Full Code 11/17/2017 12:15 PM 11/18/2017 12:13 PM Full Code 11/17/2017 6:20 AM 11/17/2017 12:15 PM Documents on File Type Date Recorded 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 HealthCare Power of Pyroglazer 12/18/2016 Advance Directives/Living Will 12/18/2016 Latest Code [...] ENDOCRINOLOGY CLINIC Armond Mosquera MD [address] [facility] [address] [place] [address] Referral ID Status Reason Start Date Expiration Date V isits Requested Visits Authorized [id number] New Request 06/12/2022 07/07/2023 1 1 Additional Source Comments INFORMATION SOURCE (unrecogn ized section and content) DATE CREATED AUTHOR AUTHOR'S ORGANIZ ATION 12/12/2021 [facility] DATE CREATED AUTHOR AUTHOR'S ORGANIZ ATION 08/07/2022 [facility] DATE CREATED AUTHOR AUTHOR'S ORGANIZ ATION 06/11/2023 [facility] DATE CREATED AUTHOR AUTHOR'S ORGANIZ ATION 10/07/2023 [facility] DATE CREATED AUTHOR AUTHOR'S ORGANIZ ATION 12/23/2023 [facility] Reason for Visit (unrecogniz ed section and content) Reason Comments Follow-up Routine follow-up wi th mild weight gain. No other concerns noted today. Care Teams (unrecognized sec tion and content) Hydrogen Treater Relationship Specialty Start Date End Date Kirk Mercado MD [address] [place] [address] [place] [address] PCP - General Family Medicine 08/25/17 Osmar Walker MD [address] [place] [id number] Otolaryngology 11/03/17 Chuck Suarez MD [address] [place] [address] Hematology 02/15/18 FOR RECORDS PERTAINING TO PATIENTS [...] BE BASED ON THE PRIMARY CLINICAL RECORDS. [facility]. provides no warranty or guarantee of the accuracy or completeness of information in this document.
[2023-12-30 23:03] LABS: Bedside Glucose 180 mg/dL (74-106)
[2023-12-30] MEDS: Acetaminophen 500 MG Tablet 1000 MG PO (23:41)
[2023-12-30] MEDS: Insulin Lispro 100 UNIT/ML INSULN.PEN SC (23:42)
[2023-12-30] MEDS: Metoprolol Tartrate 100 MG Tablet PO (23:42)
[2023-12-30] MEDS: Atorvastatin Calcium 20 MG Tablet PO (23:43)
[2023-12-31 00:35] VITALS: O2SAT 94
[2023-12-31 03:25] VITALS: BP 144/64; PULSE 60; RESP 15; TEMP 36.8; O2SAT 97
[2023-12-31 05:39] VITALS: BMI 35.2
[2023-12-31] MEDS: Acetaminophen 500 MG Tablet 1000 MG PO (06:00)
[2023-12-31] MEDS: Levothyroxine 137 MCG Tablet PO (06:00)
[2023-12-31] MEDS: Insulin Lispro 100 UNIT/ML INSULN.PEN SC ×2 (06:03→12:12)
[2023-12-31 07:41] LABS: Absolute Lymphocyte Count 0.51 X10^3/uL (0.83-4.51); Absolute Neutrophil Count 4.2 X10^3/uL (2.0-7.7); Basophil# 0.01 X10^3/uL; Basophil% 0.2 % (0-1); Hematocrit 32.5 % (37-47); Hemoglobin 10.6 g/dL (12.0-15.0); Lymphocyte # 0.51 X10^3/ul (0.83-4.51); Lymphocyte % 10.1 % (19-41); Mean Corp Hgb Conc 32.6 g/dL (32-36); Mean Corpuscular Hgb 30.2 pg (27.0-32.0); Mean Corpuscular Volume 92.6 fL (81-99); Mean Platelet Vol. 12.4 fl (6.2-12.0); Monocyte# 0.29 X10^3/uL; Monocyte% 5.8 % (0-10); NRBC Flagged by Analyzer 0 % (0-5); Neutrophil % 83.5 % (47-70); POSITIVE DIFFERENTIAL YES; Platelet Count 116 K/mm3 (150-450); RBC Distribution Width CV 12.4 % (11.6-14.6); RBC Distribution Width SD 41.7 fl (35.1-43.9); Red Blood Count 3.51 M/mm3 (4.2-5.4)
[2023-12-31 07:42] LABS: Differential Indicated SCAN CRITERIA MET
[2023-12-31 08:18] LABS: ALB/GLOB Ratio 1.1 RATIO (0.9-2.4); AST(SGOT) 16 U/L (15-37); Alanine Aminotransfer ALT/SGPT 20 U/L (13-56); Albumin, Serum 3.1 g/dL (3.2-5.0); Alkaline Phosphatase 59 U/L (45-117); Anion Gap 4 (5-15); BUN 22 mg/dL (7-18); BUN/Creat Ratio 21.6 RATIO (10-20); Calcium,Total 7.8 mg/dL (8.5-10.1); Chloride 107 mmol/L (98-107); Cholesterol 106 mg/dL (200); Creatinine, Serum 1.02 mg/dL (0.55-1.02); EST Glomerular Filtration Rate 57 mL/min (>60); Est Glom Filt Rate - Afr Amer 69 mL/min (>60); Estimated Creatinine Clearance 56.73 ml/min; Globulin 2.7 g/dL (2.2-4.2); Glucose 166 mg/dL (74-106); High Density Lipoprotein 52 mg/dL; Potassium 4.1 mmol/L (3.5-5.1); Protein, Total 5.8 g/dL (6.4-8.2); Sodium Level 136 mmol/L (136-145); Triglycerides 53 mg/dL; Very Low Density Lipoprotein 11 mg/dL (5-40)
--- NOTE | 2023-12-31 08:29 | PN.HOSP_ITS ---
Subjective Subjective Feels much better. Heart rate is dropped down into the 50s. Objective Data Objective Data Vital Signs: Vital Signs Temp Pulse Resp BP Pulse Ox O2 Del Method 36.8 C 60 15 144/64 H 97 Room Air 12/31/23 03:25 12/31/23 03:25 12/31/23 03:25 12/31/23 03:25 12/31/23 03:25 12/31/23 03:25 Oxygen Delivery Method Room Air Weight: 93 kg Body Mass Index (BMI) 35.2 Lab / Micro Data 12/31/23 07:00 12/31/23 07:00 Labs: Laboratory Results - last 24 hr 12/30/23 16:14: WBC 4.6, RBC 3.90 L, Hgb 11.7 L, Hct 35.8 L, MCV 91.8, MCH 30.0, MCHC 32.7, RDW Std Deviation 40.4, RDW Coeff of Antonio 12.1, Plt Count 74 L, MPV 11.7, Immature Gran % (Auto) 0.700, Neut % (Auto) 91.8 H, Lymph % (Auto) 6.6 L, [place]ary % (Auto) 0.7, Eos % (Auto) 0.0, Baso % (Auto) 0.2, Absolute Neuts (auto) 4.2, Absolute Lymphs (auto) 0.30 L, Nucleated RBC % 0, Differential Comment SCANNED, Sodium 134 L, Potassium 3.2 L, Chloride 108 H, Carbon Dioxide 20.0 L, Anion Gap 6, BUN 23 H, Creatinine 0.86, Estim Creat Clear Calc 69.74, Est GFR (MDRD) Af Amer 84, Est GFR (MDRD) Non-Af 70, BUN/Creatinine Ratio 26.8 H, Glucose 219 H, Calcium 7.3 L, Magnesium 2.0, TSH 1.54 12/30/23 22:45: POC Glucose 180 H 12/31/23 07:00: WBC 5.0, RBC 3.51 L, Hgb 10.6 L, Hct 32.5 L, MCV 92.6, MCH 30.2, MCHC 32.6, RDW Std Deviation 41.7, RDW Coeff of Antonio 12.4, Plt Count 116 L, MPV 12.4 H, Immature Gran % (Auto) 0.400, Neut % (Auto) 83.5 H, Lymph % (Auto) 10.1 L, [place] % (Auto) 5.8, Eos % (Auto) 0.0, Baso % (Auto) 0.2, Absolute Neuts (auto) 4.2, Absolute Lymphs (auto) 0.51 L, Nucleated RBC % 0, Sodium 136, Potassium 4.1, Chloride 107, Carbon Dioxide 25.0, Anion Gap 4 L, BUN 22 H, Creatinine 1.02, Estim Creat Clear Calc 56.73, Est GFR (MDRD) Af Amer 69, Est GFR (MDRD) Non-Af 57 L, BUN/Creatinine Ratio 21.6 H, Glucose 166 H, Calcium 7.8 L, Magnesium 2.0, Total Bilirubin 0.70, AST 16, ALT 20, Alkaline Phosphatase 59, Total Protein 5.8 L, Albumin 3.1 L, Globulin 2.7, Albumin/Globulin Ratio 1.1, Triglycerides 53, Cholesterol 106, LDL Cholesterol 43, VLDL Cholesterol 11, HDL Cholesterol 52 Physical Exam Const alert and no apparent distress HEENT head/scalp atraumatic Resp normal respiratory effort, no retractions and no use of accessory muscles Cardio regular rate, regular rhythm, S1 normal heart sound and S2 normal heart sound Assessment & Plan Assessment/Plan (1) Paroxysmal atrial fibrillation with RVR: (2) Diabetes mellitus, type 2: (3) Hypothyroid: (4) Thrombocytopenia: PLAN: Plan A-fib with RVR * New onset, noted post op * continue apixaban as patient's [id number] score is 4. Recommend that she follow-up with cardiology to see if she remains in normal sinus rhythm that if she can possibly be taken off of the anticoagulation. * Likely exacerbated by the patient's recent shoulder surgery. Continue with metoprolol 50 mg twice daily as patient was having bradycardia with the 100. * Patient has concerns about getting home. I think the echo can be deferred to outpatient and following up with cardiology as outpatient. s/p Right shoulder surgery * on 12/30 * follow up with Dr. Turner * Pain control Hypokalemia * resolved after replacement Chronic conditions: * Type 2 diabetes mellitus-Glucose checks and sliding scale insulin-Continue home insulin and hold home oral hypoglycemic * Hypothyroidism after thyroid cancer surgery-Continue Synthroid * Thrombocytopenia-Appears to be chronic, unclear underlying etiology-Improved. Follow up with hematology as outpt.
[2023-12-31 09:25] VITALS: BP 135/61; PULSE 62; RESP 16; TEMP 36.7; O2SAT 96
[2023-12-31] MEDS: oxyCODONE 5 MG Tablet PO (09:58)
[2023-12-31] MEDS: APIXABAN 5 MG TABLET PO (09:58)
[2023-12-31 10:00] VITALS: BP 135/61; PULSE 62
--- NOTE | 2023-12-31 11:08 | PCM.DC.SUM ---
Providers Date of Admission: 12/30/23 Primary Care Physician: Dr. Luis Antonio Garcia MD Reason For Visit: AFIB RVR Diagnosis Discharge Diagnosis (1) Paroxysmal atrial fibrillation with RVR: Status: Acute Code(s): I48.0 - Paroxysmal atrial fibrillation (2) Diabetes mellitus, type 2: Status: Acute Code(s): E11.9 - Type 2 diabetes mellitus without complications (3) Hypothyroid: Status: Acute Code(s): E03.9 - Hypothyroidism, unspecified (4) Thrombocytopenia: Status: Acute Code(s): D69.6 - Thrombocytopenia, unspecified Plan A-fib with RVR New onset, noted post op continue apixaban as patient's [id number] score is 4. Recommend that she follow-up with cardiology to see if she remains in normal sinus rhythm that if she can possibly be taken off of the anticoagulation. Likely exacerbated by the patient's recent shoulder surgery. Continue with metoprolol 50 mg twice daily as patient was having bradycardia with the 100. Patient has concerns about getting home. I think the echo can be deferred to outpatient and following up with cardiology as outpatient. s/p Right shoulder surgery on 12/[address] Turner Pain control Hypokalemia resolved after replacement Chronic conditions: Type 2 diabetes mellitus-Glucose checks and sliding scale insulin-Continue home insulin and hold home oral hypoglycemic Hypothyroidism after thyroid cancer surgery-Continue Synthroid Thrombocytopenia-Appears to be chronic, unclear underlying etiology-Improved. Follow up with hematology as outpt. Medications at Discharge Home Medications atorvastatin 20 mg tablet 20 mg PO QHS high cholesterol 11/03/22 insulin NPH isoph U-100 human 100 unit/mL (3 mL) subcutaneous pen (Humulin N NPH U-100 Insulin KwikPen) 20 unit subcut DINNER diabetes 11/03/22 levothyroxine 137 mcg tablet 68.5 mcg PO SOLIS THYROID 11/03/22 losartan 50 mg tablet 50 mg PO DAILY blood pressure 11/03/22 metoprolol tartrate 50 mg tablet 50 mg PO BID blood pressure 11/03/22 cetirizine 10 mg capsule (All Day Allergy (cetirizine)) 10 mg PO DAILY PRN allergies 12/30/23 glucosamine-chondroitin 500 mg-400 mg tablet 1 tab PO DAILY supplement 12/30/23 glyburide 5 mg tablet 5 mg PO DAILY 12/30/23 hydrochlorothiazide 25 mg tablet 25 mg PO DAILY BLOOD PRESSURE 12/30/23 levothyroxine 137 mcg capsule 137 mcg PO MOTUWETHFRSA THYROID 12/30/23 multivitamin (Daily Multi-Vitamin tablet) 1 tab PO DAILY supplement 12/30/23 oxycodone 5 mg tablet 5 - 10 mg PO Q6H PRN rotator cuff surgery pain 12/30/23 apixaban 5 mg tablet (Eliquis) 5 mg PO BID #60 tabs 12/31/23 Hospital Course Operations None Procedures None Summary of Care Provided Minutes Spent on Discharge: 32 Weight / BMI Weight Weight: 93 kg Body Mass Index (BMI) 35.2 ABG / Lab / Microbiology Data 12/31/23 07:00 12/31/23 07:00 Laboratory: Laboratory Results - last 24 hr 12/30/23 16:14: WBC 4.6, RBC 3.90 L, Hgb 11.7 L, Hct 35.8 L, MCV 91.8, MCH 30.0, MCHC 32.7, RDW Std Deviation 40.4, RDW Coeff of Antonio 12.1, Plt Count 74 L, MPV 11.7, Immature Gran % (Auto) 0.700, Neut % (Auto) 91.8 H, Lymph % (Auto) 6.6 L, [place] % (Auto) 0.7, Eos % (Auto) 0.0, Baso % (Auto) 0.2, Absolute Neuts (auto) 4.2, Absolute Lymphs (auto) 0.30 L, Nucleated RBC % 0, Differential Comment SCANNED, Sodium 134 L, Potassium 3.2 L, Chloride 108 H, Carbon Dioxide 20.0 L, Anion Gap 6, BUN 23 H, Creatinine 0.86, Estim Creat Clear Calc 69.74, Est GFR (MDRD) Af Amer 84, Est GFR (MDRD) Non-Af 70, BUN/Creatinine Ratio 26.8 H, Glucose 219 H, Calcium 7.3 L, Magnesium 2.0, TSH 1.54 12/30/23 22:45: POC Glucose 180 H 12/31/23 07:00: WBC 5.0, RBC 3.51 L, Hgb 10.6 L, Hct 32.5 L, MCV 92.6, MCH 30.2, MCHC 32.6, RDW Std Deviation 41.7, RDW Coeff of Antonio 12.4, Plt Count 116 L, MPV 12.4 H, Immature Gran % (Auto) 0.400, Neut % (Auto) 83.5 H, Lymph % (Auto) 10.1 L, [place] % (Auto) 5.8, Eos % (Auto) 0.0, Baso % (Auto) 0.2, Absolute Neuts (auto) 4.2, Absolute Lymphs (auto) 0.51 L, Nucleated RBC % 0, Sodium 136, Potassium 4.1, Chloride 107, Carbon Dioxide 25.0, Anion Gap 4 L, BUN 22 H, Creatinine 1.02, Estim Creat Clear Calc 56.73, Est GFR (MDRD) Af Amer 69, Est GFR (MDRD) Non-Af 57 L, BUN/Creatinine Ratio 21.6 H, Glucose 166 H, Calcium 7.8 L, Magnesium 2.0, Total Bilirubin 0.70, AST 16, ALT 20, Alkaline Phosphatase 59, Total Protein 5.8 L, Albumin 3.1 L, Globulin 2.7, Albumin/Globulin Ratio 1.1, Triglycerides 53, Cholesterol 106, LDL Cholesterol 43, VLDL Cholesterol 11, HDL Cholesterol 52 D/C Instructions Discharge Diet: 1999 Calorie Control Diet Meaningful Use Info Meaningful Use Diagnoses (Choose all that apply): None applicable Discharge Plan Admission Admit Date/Time: 12/30/23 19:32 Primary Reason for Your Visit: Atrial fibrillation with RVR. Attending Provider: Leo Reed Primary Care Provider: Luis Antonio Garcia Consulting Providers: Genia Curry Instructions Additional Instructions / Restrictions: You had atrial fibrillation with RVR but digits converted to a normal sinus rhythm. Continue with the metoprolol that you do take. You do have a higher risk for having a stroke if you do go into A-fib again so we do recommend you take anticoagulation with apixaban. Would like you to follow-up with cardiology to see there would need to be any changes in medications or if possibly if he could come off the anticoagulation. Also to see about getting an echocardiogram, which is an ultrasound of your heart. Please follow-up with Dr. Uriah Jonas at your next scheduled appointment. No weight bearing RUE. Discharge Orders/Prescriptions Prescriptions: New Eliquis 5 mg Tablet 5 mg PO BID Qty: 60 0RF Continued losartan 50 mg tablet 50 mg PO DAILY levothyroxine 137 mcg tablet 68.5 mcg PO SOLIS atorvastatin 20 mg tablet 20 mg PO QHS metoprolol tartrate 50 mg tablet 50 mg PO BID Humulin N NPH Insulin KwikPen 100 unit/mL (3 mL) insulin pen 20 unit SUBCUT DINNER levothyroxine 137 mcg capsule 137 mcg PO MOTUWETHFRSA glyburide 5 mg tablet 5 mg PO DAILY hydrochlorothiazide 25 mg tablet 25 mg PO DAILY oxycodone 5 mg tablet 5 - 10 mg PO Q6H PRN (Reason: rotator cuff surgery pain) Patient Comments: pt states she picked up from pharmacy, and rx was for surgery she had this morning. has not touched this med, but does have at home. multivitamin [Daily Multi-Vitamin] Tablet 1 tab PO DAILY All Day Allergy (cetirizine) 10 mg capsule 10 mg PO DAILY PRN (Reason: allergies) glucosamine-chondroitin 500-400 mg tablet 1 tab PO DAILY Referrals / Follow Up: [facility] [Provider Group] - Within 1 Month Luis Antonio Garcia MD [Primary Care Provider] - Kentrell Turner DO [Med Staff - Active Staff] - Within 1 Week NOT,DEFINED [Non-Staff] - Disposition Disposition (needs filled in before D/C Order can be placed): Home, Self Care Charges/Coding Visit Charges Inpatient E&M: 97103 Disch Hosp >30min
[2023-12-31 11:34] LABS: Bedside Glucose 259 mg/dL (74-106)
--- NOTE | 2023-12-31 12:50 | CASEMGMT ---
Patient has order for discharge. Patient discharging on Eliquis, copay is $47. EMMY OCHOA in to discuss needs at discharge. Patient states she lives with significant other. Has cane available if needed. Patient states she has follow-up schedule with [facility]. EMMY OCHOA updated regarding cost of Eliquis and states she can afford copay. Patient denied further needs. Patient had no further questions or concerns.
[2023-12-31 23:28] LABS: Bedside Glucose 169 mg/dL (74-106)
== END 2023-12-31 11:11 | disposition home or self-care (01) ==
LOC: ED 16:46 → PCU 21:06
PROVIDERS: Admitting Provider Internal Medicine; Emergency Provider Emergency Medicine; PCP Internal Medicine; Referring Provider Internal Medicine
DX: I48.0 Paroxysmal atrial fibrillation (principal); D69.6 Thrombocytopenia, unspecified; E11.9 Type 2 diabetes mellitus without complications; Z79.4 Long term (current) use of insulin; I10 Essential (primary) hypertension; Z79.84 Long term (current) use of oral hypoglycemic drugs; E87.6 Hypokalemia; E89.0 Postprocedural hypothyroidism; Z79.899 Other long term (current) drug therapy; Z79.890 Hormone replacement therapy
CPT/HCPCS: 36415; 80048; 80053; 80061; 82962; 83735; 84443; 85025; 93005; 96374; 99221; 99284; A4216; G0378